=== PATIENT | male | born 1965 | race Caucasian/White ===

== ENCOUNTER 2018-09-09 10:37 | Outpatient (REF) | payer BC, SELFPAY ==
[2018-09-09 16:28] LABS: Cholesterol 197 mg/dL (50-200); HDL Cholesterol 82 mg/dL (40-60); LDL CHOLESTEROL 98 mg/dL (<100); Potassium 3.5 mmol/L (3.5-5.1); Triglyceride 102 mg/dL (30-150)
[2018-09-10 10:00] LABS: Hepatitis C Ab w Rflx HCV PCR Negative (NEGAT)
== END 2018-09-09 10:57 ==
LOC: NCHCN 10:37
PROVIDERS: PCP Internal Medicine; Visit Provider Internal Medicine
DX: I10 Essential (primary) hypertension (principal); Z11.59 Encounter for screening for other viral diseases; Z00.00 Encounter for general adult medical examination without abnormal findings
CPT/HCPCS: 80061; 83721; 86803; 84132

== ENCOUNTER 2018-12-28 13:12 | Emergency (ER) | payer BC, SELFPAY ==
[2018-12-28 13:18] VITALS: BP 127/85; PULSE 98; RESP 18; TEMP 36.7; O2SAT 97
--- NOTE | 2018-12-28 13:52 | ED.GENADUL_ITS ---
Discharge Plan Disposition Patient Disposition: [facility] Condition: Stable Discharge Details Chief Complaint: Nk/Back Pain Clinical Impression: AIDP (acute inflammatory demyelinating polyneuropathy), Proximal muscle weakness Primary Care Provider: Ignacio Lenz ED Provider: Radha Vee Home Meds and New Rx's Prescriptions: No Action potassium chloride 10 MEQ tablet extended release 1 tab PO DAILY RF: 0 losartan 25 MG tablet 25 mg PO DAILY RF: 0 lorazepam 0.5 MG tablet 0.5 mg PO BID PRN PRNQty: 10 RF: 0 diltiazem HCl 240 mg Capsule,Extended Release 24hr 240 mg PO DAILY RF: 0 hydrochlorothiazide 25 mg Tablet RF: 0 albuterol sulfate [Ventolin HFA] 90 mcg/actuation Hfa Aerosol Inhaler RF: 0 Symbicort 160-4.5 mcg/actuation Hfa Aerosol Inhaler RF: 0 omeprazole 20 mg Tablet,Delayed Release (Dr/Ec) RF: 0 Medical Decision Making 53yo M w/ a h/o asthma and HTN with chronic lower back pain over the past few weeks with progressive proximal muscle weakness in the upper and lower extremities. Sent by PCP for evaluation for possible MRI. PCP stated that patient dropped to his knees when attempting to stand and bending knees. Patient states he is unable to stand for me due to his leg weakness. He has obvious limitation with fully lifting his arms with abduction. He has obvious weakness with attempting to extend his knees. It appears that his weakness is proximal in the shoulders and proximal thighs. Reflexes hypoactive throughout. Distal pulses intact. Patient denies any fever or other cauda equina symptoms. Vitals within normal limits. Will obtain a cervical and lumbar spine MRI. Will also place an IV check screening labs, CK, ESR and CRP. 1810 --cervical MRI notes findings consistent with cervical spondylosis and disc disease with mild narrowing and C3-C4 and C4-C5 but no large protrusion, extrusion or intramedullary abnormality. Lumbar spine MRI notes mild disc degeneration at L5-S1 with mild posterior bulge with mild foraminal narrowing but no significant bulge, protrusion or stenosis. Labs reviewed and unremarkable. Normal CK, ESR and CRP. 1830 --discussed with [facility] neurology -appears consistent with a myopathy. Recommends LP to look for protein. If LP negative, likely can be discharged home if able to be ambulatory for follow-up with neurology for EMG/nerve conduction studies. Due to medical surge in ED, anesthesia called for LP. Patient was informed and is agreeable. 2044 --CSF reviewed and notes a protein of 236, glucose of 80, 1 WBC and 1 RBC. 2099 --CSF results reviewed with [facility] neurology and recommend transfer to there for concern for AIDP/Guillain Vansant. They are requesting IVIG if possible but this does not appear to be possible to be given here. They have accepted patient for transfer to [facility] ED. Accepting physician neurology Dr. Gilliland. No other acute interventions recommended to give here before transfer. Patient has been hemodynamically stable with no complaints of shortness of breath and no signs of any respiratory distress. Patient was given 2 doses of morphine and Toradol for pain with some relief. HPI General Mode of arrival: wheelchair . Date/Time Provider Initiated Documentation: 12/28/18 13:37 . Limitations to Documentation: no limitations . Information obtained by: patient . HPI Narrative: Patient is a 53-year-old male with history of hypertension and asthma who presents with back pain and leg weakness. States he has had multiple falls over the past few weeks. He states initially he was slipping on ice falling onto his back. He states lately he has had multiple falls due to leg weakness. He states he has been using his arms to lift himself due to his leg weakness and now he feels that over the past week or 2 he has had upper arm weakness. Patient mainly complains of weakness in his shoulders and upper thighs. Patient states he was seen yesterday at [facility] and had a lumbar spine x-ray which she states was negative and was sent home with ibuprofen and Flexeril. Patient was seen at the PCP office today by Dr. Lenz who sent patient to the ER for further evaluation of proximal muscle weakness for possible MRI. Patient denies fever, abdominal pain, nausea, vomiting, saddle anesthesia, bowel or bladder incontinence. Related Data Home Medications Medication Instructions Recorded Confirmed lorazepam 0.5 mg PO BID PRN PRN #10 tab 09/21/16 12/28/18 losartan 25 mg PO DAILY 09/21/16 12/28/18 potassium chloride 1 tab PO DAILY 09/21/16 12/28/18 albuterol sulfate [Ventolin HFA] 12/28/18 budesonide-formoterol [Symbicort] 12/28/18 diltiazem HCl 240 mg PO DAILY 12/28/18 12/28/18 hydrochlorothiazide 12/28/18 omeprazole 12/28/18 Previous Rx's Medication Instructions Recorded lorazepam 0.5 mg PO BID PRN PRN #10 tab 09/21/16 Allergies Allergy/AdvReac Type Severity Reaction Status Date / Time No Known Allergies Allergy Unverified 09/21/16 12:26 General Stated Complaint: Nk/Back Pain ADRIÁN: 3 Review of Systems Review of Systems All systems reviewed & are unremarkable except as noted in HPI and below Constitutional Reports as per HPI, Denies chills and Denies fever(s) Eyes Denies blurry vision ENT Denies dizziness, Denies sore throat and Denies throat swelling Cardiovascular Denies chest pain and Denies dyspnea Respiratory Denies cough and Denies dyspnea Gastrointestinal Denies abdominal pain, Denies diarrhea and Denies vomiting Genitourinary Denies hematuria and Denies dysuria Musculoskeletal Reports back pain and Reports numbness Integumentary/Breasts Denies lesions and Denies rash Neurologic Denies dizziness, Reports focal weakness and Reports numbness Allergic/Immunologic Denies throat swelling [facility] Medical History Asthma (Chronic) HTN (hypertension) (Chronic) Surgical History H/O shoulder surgery (Chronic) Social History Alcohol Intake: current Alcohol Intake frequency: 3 or more drinks per day Drug use: Never Substance use type: does not use Do you feel safe at home: Yes Do you feel safe in your relationship?: Yes Exam Const General: cooperative, healthy appearing and no acute distress HENMT Head: normal to inspection Face and sinus: normal facial exam Eyes General: appearance normal, both eyes and all related structures Pupils: PERRL EOM: EOM intact bilaterally Neck Neck: normal visual inspection and No submandibular swelling Lymphatic: no lymphadenopathy noted Chest Chest: normal inspection of the chest and no tenderness Resp Effort & Inspection: normal respiratory effort and able to speak in complete sentences Auscultation: clear to auscultation bilaterally Cardio Rate: regular rate Rhythm: regular rhythm GI Inspection: normal to inspection Palpation: soft, not firm, not rigid and nontender Auscultation: normal bowel sounds Back/Spine/Pelvis Thoracic/Lumbar Spine: thoracic and lumbar spine normal to inspection, No thoracic spinal tenderness and No lumbar spinal tenderness Pelvis: no pain with anterior-posterior compression Skin General skin exam: no rashes or lesions noted Neuro General: alert, awake and oriented x3 Cognition: normal cognition Speech: speech normal Sensory Exam: no sensory deficits noted Other: Limitation and difficulty with full abduction of arms and raising arms completely above her head. Limitation with knee extension bilaterally. Difficulty with standing due to proximal muscle weakness. Bilateral patella/Achilles reflexes hypoactive. Negative Babinski bilaterally. Bilateral DP/PT pulses intact. Normal radial/median/ulnar motor are nerve function of hands/wrists bilaterally. Normal plantar/dorsi flexion of foot bilaterally. Extrem General: normal to inspection, full ROM, normal capillary refill, no calf tenderness bilaterally and no edema Psych Appearance: grossly normal Mental Status: mental status grossly normal Speech and Movement: speech and movement normal Affect: normal affect Course Vital Signs Temperature 98.1 F 12/28/18 13:18 Pulse 98 H 12/28/18 13:18 Respiratory Rate 18 12/28/18 13:18 Blood Pressure 127/85 12/28/18 13:18 Pulse Oximetry 97 12/28/18 13:18 Temperature 98.1 F 12/28/18 13:18 Temperature Source Temporal Artery Scan 12/28/18 13:18 Pulse 98 H 12/28/18 13:18 Respiratory Rate 18 12/28/18 13:18 Respiratory Effort Non-Labored 12/28/18 13:21 Blood Pressure 127/85 12/28/18 13:18 Blood Pressure Position Sitting 12/28/18 13:18 Pulse Oximetry 97 12/28/18 13:18 Oxygen Delivery Method Room Air 12/28/18 13:18 Oxygen Flow Rate 0 12/28/18 13:18 Pain Level 3 12/28/18 13:18
--- NOTE | 2018-12-28 15:35 | DI.MRI_ITS ---
SYMPTOMS/DIAGNOSIS: PROXIMAL ARM WEAKNESS, HAND NUMBNESS, ? ACUTE CERVICAL INJURY, LOWER BACK PAIN, PROXIMAL MUSCLE WEAKNESS, ? LUMBAR SPINE/NERVE INJURY MRI OF THE CERVICAL SPINE: Comparison is made with plain films from 2012. T 1, T 2, FLAIR, STIR and T 2 3D sagittal and gradient echo axial sequences were performed. There is some straightening of the normal cervical lordosis at C 3 - 4. The intervertebral discs are well maintained in height. There is minimal posterior disc bulging at C 3 - 4 and C 4 - 5. There is no significant central canal stenosis. There is mild neural foraminal narrowing on the right at C 3 - 4 and C 4 - 5. No disc herniation is seen at any level. The cord signal and marrow signal appear normal. IMPRESSION: Mild degenerative changes. MRI OF THE LUMBAR SPINE: T 1, T 2 and STIR sagittal, T 1 coronal and T 1 and T 2 axial sequences were performed. The marrow signal is normal. The conus medullaris appears intact. The intervertebral discs are normal in height. There is partial disc desiccation at L 5 - S 1 and slight circumferential disc bulging. There are minimal facet joint degenerative changes. No paraspinal masses are seen. IMPRESSION: Mild degenerative disc changes at L 5 - S 1. No significant neural foraminal narrowing or central canal stenosis.
--- NOTE | 2018-12-28 16:01 | NUR.NOTE ---
patient to MRI Nursing Note:
[2018-12-28 16:06] LABS: Abs Immature Grans 0.02 k/cumm (0.0-0.09); Absolute Basophil Count 0.03 k/cumm (0.0-0.2); Absolute Eosinophil Count 0.56 k/cumm (0.0-0.7); Absolute Lymphocyte Count 1.52 k/cumm (1.2-3.4); Absolute Monocyte Count 0.89 k/cumm (0.11-0.7); Absolute Neutrophil Count 5.41 k/cumm (1.2-6.7); Basophils % 0.4; Eosinophils % 6.6; HCT 45.5 % (40.0-50.0); HGB 15.7 g/dL (13.5-17.5); Immature Grans % 0.2; Mean Corp. HGB Concentration 34.5 g/dL (32.0-36.0); Mean Corpuscular Hemoglobin 32.3 pg (27.0-33.0); Mean Corpuscular Volume 93.6 fL (80-95); Mean Platelet Volume 10.6 fL (8.0-11.0); Monocytes % 10.6; Neutrophils % 64.2; Platelet Count 225 x1000/uL (130-400); RBC 4.86 m/cumm (4.50-6.00); RBC Distribution Width 12.5 % (11.8-14.1); White Blood Cell Count 8.43 k/cumm (4.4-10.8)
[2018-12-28 16:14] LABS: Bilirubin Negative (Negative); Blood Negative (Negative); Clarity Clear; Glucose Negative (Negative); Ketones Negative (Negative); Leukocyte Esterase Negative (Negative); Nitrite Negative (Negative); Specific Gravity 1.015 (1.005-1.025)
[2018-12-28 16:34] LABS: ALT 77 U/L (12-78); AST 32 U/L (15-37); Albumin 3.9 g/dL (3.4-5.0); Alkaline Phosphatase 68 U/L (46-116); Anion Gap 11.1 mmol/L (3-11); BUN 17 mg/dL (7-18); Bilirubin, Total 0.5 mg/dL (0.2-1.0); C-Reactive Protein 0.54 mg/dL (0.0-0.3); CO2 27.9 mmol/L (21.0-32.0); CREATININE 0.88 mg/dL (0.70-1.30); Calcium 9.2 mg/dL (8.5-10.1); Chloride 98 mmol/L (98-107); Creatine Kinase 151 U/L (39-308); Glucose 117 mg/dL (70-100); Potassium 3.8 mmol/L (3.5-5.1); Sodium 137 mmol/L (136-145); Total Protein 7.3 g/dL (6.4-8.2)
[2018-12-28 17:21] LABS: ESR 5 MM/HR (1-20)
[2018-12-28 17:24] VITALS: BP 125/86; PULSE 89; RESP 16; TEMP 37.2; O2SAT 94
--- NOTE | 2018-12-28 17:24 | NUR.NOTE ---
returned from MRI, reports 3/10 lower back pain comes and goes and denies nausea Nursing Note:
--- NOTE | 2018-12-28 17:40 | DI.VRAD_ITS ---
EXAM: MR Lumbar Spine Without Contrast. EXAM DATE/TIME: 12/28/2018 5:09 PM CLINICAL HISTORY: 53 years old, male; Signs and symptoms; Weakness; Patient HX: Lower back pain, proximal muscle weakness. ; Additional info: R/O lumbar spine/nerve injury. TECHNIQUE: Imaging protocol: Multiplanar magnetic resonance images of the lumbar spine without intravenous contrast. COMPARISON: No relevant prior studies available. FINDINGS: Vertebrae: Exam mildly degraded by motion Alignment of the lumbar spine is within normal limits. Marrow: There is no significant marrow signal abnormality, focal vertebral body abnormality nor decrease of vertebral body height. There is no significant marrow edema to suggest recent or acute bony injury. There is decreased T2 signal of the intervertebral disc at L5-S1 consistent with disc desiccation and degeneration. There is a mild bulge or shallow posterior protrusion, mild spondylitic changes of the endplates and facet arthropathy at this level. The central canal does not appear significantly narrowed. There is mild foraminal narrowing slightly greater on the left than the right. The intervertebral discs within the visualized lower thoracic spine and at L1-2 through L4-5 are normal in height and signal intensity. There is no evidence of a large bulge, protrusion or extrusion, nor high grade spinal or foraminal stenosis. Spinal cord: The conus terminates normally at L1. Images are degraded by motion but no definite intramedullary abnormality is seen within the conus. Soft tissues: The exam was not tailored to evaluate the retroperitoneal or the paravertebral soft tissues. No significant abnormality is identified.. IMPRESSION: Mild disc desiccation degeneration at L5-S1. Mild posterior bulge or shallow protrusion. There is mild foraminal narrowing at this level slightly greater on the left than the right. There is no further evidence of a significant bulge, protrusion/extrusion, high-grade spinal or foraminal stenosis Dictated and Authenticated by: Bibi Francis MD. Ordering:JEANNE Garcia MD
--- NOTE | 2018-12-28 17:48 | DI.VRAD_ITS ---
EXAM: MR Cervical Spine Without Contrast EXAM DATE/TIME: 12/28/2018 4:43 PM CLINICAL HISTORY: 53 years old, male; Signs and symptoms; Weakness; Patient HX: Proximal arm weakness, hand numbness. ; Additional info: R/O acute cervical injury. TECHNIQUE: Imaging protocol: Multiplanar magnetic resonance images of the cervical spine without contrast. COMPARISON: CR CERVICAL SP. LIMITED (TRAUMA) 03/21/2012 9:18 PM FINDINGS: Vertebrae: Exam is mildly degraded by patient motion. There is straightening and mild reversal of the cervical lordosis which may be positional or due to spasm. There is minimal T1 and T2 bright signal involving the inferior endplate of C2 which may be related to mild fatty marrow/discogenic change. There is no other significant marrow signal abnormality, focal vertebral body abnormality nor decrease of vertebral body height. There is no definite marrow edema to suggest recent or acute bony injury. Craniocervical junction is unremarkable. There is slight decreased T2 signal of the intervertebral disc consistent with disc desiccation and degeneration. C2-C3: At C2-3 the spinal canal and the foramina appear patent. C3-C4: At C3-4 there is a disc osteophyte complex. There is narrowing of the ventral subarachnoid space, subtle flattening of the ventral aspect of the cervical cord and mild narrowing of the canal. There is mild right foraminal narrowing C4-C5: At C4-5 there is a minimal disc osteophyte complex narrowing the ventral subarachnoid space. There is minimal right foraminal narrowing C5-C6: At C5-6 the spinal canal and the foramina appear grossly patent. C6-C7: At C6-7 the spinal canal and foramina appear grossly patent C7-T1: At C7-T1 the spinal canal and the foramina appear patent. There is no large soft lesion or extrusion at any visualized level Spinal cord: Evaluation for intramedullary abnormality within the cervical cord is limited due to patient motion but none is definitely identified. Vasculature: Expected flow-voids are seen in the vertebral arteries. Soft tissues: The exam was not alert to evaluate the soft tissues of the neck. No significant abnormality is identified. IMPRESSION: 1. Exam degraded by motion 2. Findings consistent with mild cervical spondylosis, disc disease. There is mild narrowing of the canal at the level of the disc spaces most prominent at C3-4. There is mild foraminal narrowing most prominent on the right at C3-4 minimally at C4-5. No large soft protrusion or extrusion is identified. No definite intramedullary abnormality is seen within the cervical cord. Dictated and Authenticated by: Bibi Francis MD. Ordering:JEANNE Garcia MD
[2018-12-28 20:11] LABS: Clarity Clear; Tube # 4
[2018-12-28 20:12] LABS: RBC 1 /mm3 (0-5); WBC 1 /mm3 (0-5); Xanthochromia Absent
[2018-12-28 20:21] LABS: Glucose (CSF) 80 mg/dL (40-70); Total Protein (CSF) 236 mg/dL (15-45)
[2018-12-28 20:24] VITALS: BP 128/82; PULSE 84; RESP 18; TEMP 37.2; O2SAT 95
[2018-12-28] MEDS: MORPHine 10 MG/ML VIAL 4 MG IVP (22:03)
--- NOTE | 2018-12-28 22:16 | NUR.NOTE ---
patient aware of pending transfer. patient denies SOB Nursing Note:
--- NOTE | 2019-01-03 16:28 | NUR.NOTE ---
Nursing Note: Faxed to [facility] fluid culture results, gram stain. . Ashley Velasco.
== END 2018-12-28 23:04 | disposition short-term general hospital (02) ==
PROVIDERS: Emergency Provider Physician Assistant; PCP Internal Medicine
DX: G61.89 Other inflammatory polyneuropathies (principal); M62.81 Muscle weakness (generalized); I10 Essential (primary) hypertension
CPT/HCPCS: 36415; 80053; 82550; 82945; 85652; 89050; 89051; 96374; 96375; 96376; 99284; 72141; 72148; 81003; 84157; 85025; 86140; 87070; 87205; J1885; J2270

== ENCOUNTER 2019-09-12 22:35 | Outpatient (REF) | payer BC, SELFPAY ==
[2019-09-12 22:19] LABS: Anion Gap 11.6 mmol/L (3-11); BUN 13 mg/dL (7-18); CO2 30.4 mmol/L (21.0-32.0); CREATININE 0.95 mg/dL (0.70-1.30); Calcium 9.4 mg/dL (8.5-10.1); Chloride 97 mmol/L (98-107); Glucose 119 mg/dL (74-106); Potassium 3.5 mmol/L (3.5-5.1); Sodium 139 mmol/L (136-145)
== END 2019-09-12 22:55 ==
LOC: NCHCN 22:35
PROVIDERS: PCP Internal Medicine; Visit Provider Internal Medicine
DX: I10 Essential (primary) hypertension (principal)
CPT/HCPCS: 80048

== ENCOUNTER 2020-11-13 19:46 | Outpatient (REF) | payer OTHER, SELFPAY ==
[2020-11-13 21:31] LABS: Anion Gap 10.8 mmol/L (3-11); BUN 15 mg/dL (7-18); CO2 28.2 mmol/L (21.0-32.0); CREATININE 0.9 mg/dL (0.70-1.30); Calcium 8.8 mg/dL (8.5-10.1); Chloride 98 mmol/L (98-107); Glucose 129 mg/dL (74-106); Magnesium 1.8 mg/dL (1.8-2.4); Potassium 3.1 mmol/L (3.5-5.1); Sodium 137 mmol/L (136-145)
== END 2020-11-13 19:47 | disposition home or self-care (01) ==
LOC: NCHCN 19:46
PROVIDERS: PCP Internal Medicine; Visit Provider Internal Medicine
DX: I10 Essential (primary) hypertension (principal); R25.2 Cramp and spasm
CPT/HCPCS: 80048; 83735

== ENCOUNTER 2020-12-12 18:48 | Outpatient (REF) | payer OTHER, SELFPAY ==
[2020-12-12 22:19] LABS: Potassium 3.3 mmol/L (3.5-5.1)
== END 2020-12-12 18:49 | disposition home or self-care (01) ==
LOC: NCHCN 18:48
PROVIDERS: PCP Internal Medicine; Visit Provider Internal Medicine
DX: E87.6 Hypokalemia (principal)
CPT/HCPCS: 84132

== ENCOUNTER 2021-01-02 16:20 | Outpatient (REF) | payer OTHER, SELFPAY ==
[2021-01-02 22:13] LABS: Potassium 3.4 mmol/L (3.5-5.1)
== END 2021-01-02 16:21 | disposition home or self-care (01) ==
LOC: NCHCN 16:20
PROVIDERS: PCP Internal Medicine; Visit Provider Internal Medicine
DX: E87.6 Hypokalemia (principal)
CPT/HCPCS: 84132

== ENCOUNTER 2021-10-10 19:45 | Outpatient (REF) | payer OTHER, SELFPAY ==
[2021-10-10 21:14] LABS: Anion Gap 10.7 mmol/L (3-11); BUN 10 mg/dL (7-18); CO2 27.3 mmol/L (21.0-32.0); CREATININE 0.8 mg/dL (0.70-1.30); Calcium 8.9 mg/dL (8.5-10.1); Chloride 98 mmol/L (98-107); Glucose 120 mg/dL (74-106); Sodium 136 mmol/L (136-145)
== END 2021-10-10 19:46 | disposition home or self-care (01) ==
LOC: NCHCN 19:45
PROVIDERS: PCP Internal Medicine; Visit Provider Internal Medicine
DX: E87.6 Hypokalemia (principal)
CPT/HCPCS: 80048

== ENCOUNTER 2023-04-02 11:38 | Outpatient (REF) | payer OTHER, SELFPAY ==
[2023-04-02 14:27] LABS: Anion Gap 12.4 mmol/L (3-11); BUN 11 mg/dL (7-18); CO2 24.6 mmol/L (21.0-32.0); CREATININE 0.8 mg/dL (0.70-1.30); Calcium 9.4 mg/dL (8.5-10.1); Calculated LDL 86 mg/dL (<100); Chloride 99 mmol/L (98-107); Cholesterol 225 mg/dL (<200); Estimated GFR 103.87 (mL/min/1.73m2); Glucose 119 mg/dL (74-106); HDL Cholesterol 129 mg/dL (40-60); Potassium 3.9 mmol/L (3.5-5.1); Sodium 136 mmol/L (136-145); Triglyceride 54 mg/dL (<150)
== END 2023-04-02 11:39 | disposition home or self-care (01) ==
LOC: NCHCN 11:38
PROVIDERS: PCP Internal Medicine; Visit Provider Internal Medicine
DX: F10.14 Alcohol abuse with alcohol-induced mood disorder (principal); F32.9 Major depressive disorder, single episode, unspecified; I10 Essential (primary) hypertension; J45.30 Mild persistent asthma, uncomplicated
CPT/HCPCS: 80048; 80061

== ENCOUNTER 2024-05-19 08:56 | Outpatient (REF) | payer BC, SELFPAY ==
[2024-05-19 14:30] LABS: Abs Immature Grans 0.01 10^3/uL (0.0-0.06); Absolute Basophil Count 0.07 10^3/uL (0.0-0.2); Absolute Eosinophil Count 0.42 10^3/uL (0.0-0.7); Absolute Lymphocyte Count 1.33 10^3/uL (1.2-3.4); Absolute Monocyte Count 0.55 10^3/uL (0.1-0.8); Absolute Neutrophil Count 3.68 10^3/uL (1.2-6.7); Basophils % 1.2 %; Eosinophils % 6.9 %; HCT 45.2 % (40.0-50.0); HGB 15.5 g/dL (13.5-17.5); Immature Grans % 0.2 %; Lymphocytes % 21.9 %; MCH 33.9 pg (27.0-33.0); MCHC 34.3 % (32.0-36.0); MCV 99 fL (80-95); MPV 10.7 fL (8.0-11.0); Monocytes % 9.1 %; Neutrophils % 60.7 %; Platelet Count 157 10^3/uL (130-400); RBC 4.57 10^6/uL (4.36-5.78); WBC 6.06 10^3/uL (4.4-10.8)
[2024-05-19 15:29] LABS: ALT 81 U/L (16-63); AST 70 U/L (15-37); Alkaline Phosphatase 116 U/L (46-116); Anion Gap 16.2 mmol/L (3-11); BUN 5 mg/dL (7-18); Bilirubin, Total 1.01 mg/dL (0.2-1.0); CO2 22.8 mmol/L (21.0-32.0); CREATININE 0.7 mg/dL (0.70-1.30); Calcium 9.1 mg/dL (8.5-10.1); Chloride 101 mmol/L (98-107); Estimated GFR 107.47 (mL/min/1.73m2); Glucose 111 mg/dL (74-106); Potassium 4.1 mmol/L (3.5-5.1); Sodium 140 mmol/L (136-145); Total Protein 7.4 g/dL (6.4-8.2)
== END 2024-05-19 08:57 | disposition home or self-care (01) ==
LOC: NCHCN 08:56
PROVIDERS: PCP Family Medicine; Visit Provider Family Medicine
DX: F10.10 Alcohol abuse, uncomplicated (principal)
CPT/HCPCS: 80053; 85025

== ENCOUNTER 2024-11-11 17:10 | Emergency (ER) | payer MEDICAID, SELFPAY ==
[2024-11-11] VITALS (89 sets, daily range): BP systolic 62–112; BP diastolic 32–89; PULSE 80–135; RESP 16–27; O2SAT 76–99
--- NOTE | 2024-11-11 17:15 | RT.EKG_ITS ---
APPROVED REPORT Exam: Resting ECG Reason for Exam: hypotension Patient Location: E HR:85 bpm ECG Measurements Heart Rate 85 AXIS OK 182 P 29 QRSd 84 QRS 9 QT 429 T 32 QTc 513 Conclusion Sinus rhythm...normal P axis, V-rate 60- 99 Prolonged QT interval...QTc >500mS No STEMI
--- NOTE | 2024-11-11 17:45 | ED.GENADUL_ITS ---
Discharge Plan Disposition Patient Disposition: Transfer-Acute Inpatient Care Specific Acute Inpt Facility: [facility] Condition: Serious Discharge Details Clinical Impression: Acute hepatic failure, JACKY (acute kidney injury), Hyponatremia, Septic shock Primary Care Provider: Noman Guerin ED Provider: Miya Mccoy Home Meds and New Rx's Prescriptions: No Action potassium chloride 10 MEQ tablet extended release 1 tab PO DAILY Patient Comments: not sure of dose diltiazem HCl 240 mg Capsule,Extended Release 24hr 240 mg PO DAILY albuterol sulfate [Ventolin HFA] 90 mcg/actuation Hfa Aerosol Inhaler 1 puff inhalation Q6H PRN budesonide-formoterol [Symbicort] 160-4.5 mcg/actuation Hfa Aerosol Inhaler 1 inh inhalation DAILY omeprazole 20 mg Tablet,Delayed Release (Dr/Ec) 20 mg PO DAILY HPI General Date/Time Provider Initiated Documentation: 11/11/24 17:30 . HPI Narrative: Anthony is a 59 year old male who presents to the emergency department today for evaluation of weakness and dizziness with standing,, jaundice, and lower abdominal discomfort. He reports he has had generalized weakness since July when he was sick with a viral illness. He is not sure when he developed the jaundice, his friend said that this was not present at [place] when he last saw him. He reports that he slipped down the stairs a couple days ago, but on his back down approximately [address]. Denies head injury. He is concerned because he has had lower abdominal discomfort since then, was concerned he might have a hernia from falling down the stairs. Denies associated fever/chills, headaches, sore throat, congestion, nausea/vomiting, chest pain, shortness of breath, cough, change in bladder function, saddle anesthesia, leg weakness. He has had constipation for the last 3 days, normal stools before that. Past medical history is significant for EtOH abuse, last d rink on . Physical exam remarkable for jaundiced patient with distended abdomen. Slightly tacky mucous membranes. Easy work of breathing, lung sounds clear bilaterally. Normal heart sounds no T-spine or L-spine tenderness/step-off/deformity or ecchymosis noted. D/dx includes but is not limited to: Septic shock, ascending cholangitis, liver failure, spontaneous bacterial peritonitis, dehydration, electrolyte imbalance, severe anemia, pneumonia I independently interpreted the following tests: CBC notable for leukocytosis, white cell count 31.72. CMP notable for elevated LFTs, including Biliruben elevated at 27.69. Hypoalbuminemia noted, 1.4. Hyponatremia, sodium 126. Elevated creatinine and BUN consistent with JACKY. Lactate elevated at 2.8, improved to 2.0 after fluid resuscitation. PT/INR and APTT elevated. While in the emergency department, septic shock was identified and patient was initiated on 30 cc/kg fluid bolus, blood cultures, antibiotic coverage with cefepime and vancomycin. Pressors were initiated when blood pressure continues to remain low, norepinephrine titrated per protocol. CT abdomen/pelvis performed, mild thickening throughout the GI tract noted, likely portal related disease. Cirrhosis and portal hypertension, moderate abdominal pelvic ascites, splenomegaly also noted. T-spine and L-spine CT also obtained, no bony pathology noted. Mild dependent atelectasis noted on CXR, no infiltrates noted. Discussed case with gastroenterology/ICU team at [facility]. Likely alcoholic hepatitis. It was recommended that patient be presented to transplant centers for definitive management, but they would be willing to take him if transplant centers do not have available beds. Multiple transplant centers in [place] area called, including [facility], [facility], [facility], and [facility]. No beds available. Patient accepted to ICU at [facility], transportation pending. Handoff report given to Dr. Agrawal, overnight attending. Related Data Home Medications ?Medication ?Instructions ?Recorded ?Confirmed potassium chloride 10 mEq 1 tab PO DAILY 09/21/16 11/11/24 tablet,extended release albuterol sulfate 90 mcg/actuation 1 puff inhalation Q6H PRN 12/28/18 11/11/24 aerosol inhaler (Ventolin HFA) budesonide-formoterol HFA 160 1 inh inhalation DAILY 12/28/18 11/11/24 mcg-4.5 mcg/actuation aerosol inhaler (Symbicort) diltiazem HCl 240 mg 240 mg PO DAILY 12/28/18 11/11/24 capsule,extended release 24 hr omeprazole 20 mg tablet,delayed 20 mg PO DAILY 12/28/18 11/11/24 release Allergies Allergy/AdvReac Type Severity Reaction Status Date / Time No Known Allergies Allergy Unverified 11/11/24 17:20 General Stated Complaint: Abd Prob ADRIÁN: 2 Review of Systems Narrative: see HPI Exam Const General: cooperative, disheveled, ill appearing and other (jaundiced) Nutritional Appearance: average body habitus Orientation: alert and oriented x3 HENMT Head: normal to inspection Ears: hearing grossly normal bilaterally General nose exam: external nose normal Face and sinus: dry mucous membranes (tacky) Resp Effort & Inspection: normal respiratory effort and able to speak in complete sentences Auscultation: clear to auscultation bilaterally Cardio Rate: tachycardic Rhythm: regular rhythm GI Inspection: distended Palpation: soft, no guarding and tender Auscultation: normal bowel sounds Back/Spine/Pelvis Cervical Spine: normal cervical lordosis and cervical ROM normal Thoracic/Lumbar Spine: thoracic and lumbar spine normal to inspection and No paraspinal tenderness Skin General skin exam: jaundice Extrem General: no pedal edema Course Vital Signs Vital signs: Vital Signs Pulse 93 H 11/11/24 17:13 Blood Pressure 79/42 L 11/11/24 17:13 Pulse Oximetry 93 11/11/24 17:13 Pulse 93 H 11/11/24 17:13 Blood Pressure 79/42 L 11/11/24 17:13 Pulse Oximetry 93 11/11/24 17:13 Oxygen Delivery Method Room Air 11/11/24 17:13 Oxygen Flow Rate 0 11/11/24 17:13 Pain Level 8 11/11/24 17:13 Medical Decision Making Imaging Data Radiologic Study: Radiologist's impression: PROCEDURE INFORMATION: Exam: CT Abdomen And Pelvis Without Contrast Exam date and time: 11/11/2024 7:16 PM Age: 59 years old Clinical indication: Other: Abdominal pain, ascites, elevated bili TECHNIQUE: Imaging protocol: Computed tomography of the abdomen and pelvis without contrast. COMPARISON: CT LUMBAR SPINE RECONS 11/11/2024 7:16 PM FINDINGS: Lungs: Mild dependent subsegmental atelectasis. Liver: Liver contour is nodular. Gallbladder and biliary ducts: Faint material gallbladder lumen could be sludge or noncalcified stones. No gross biliary ductal dilation on these noncontrast images. Pancreas: No ductal dilation. No mass on noncontrast imaging. Spleen: Moderate splenomegaly without focal lesions on noncontrast imaging. Adrenal glands: No suspicious mass on noncontrast imaging. Kidneys and ureters: Nonobstructive subcentimeter left nephrolithiasis. No right nephrolithiasis. No right hydronephrosis. Stomach and bowel: Mild wall thickening throughout majority of GI tract including probably distal esophagus, definitely stomach, duodenum, small bowel and majority of colon and potentially even portions of the rectum. Scattered colonic diverticula without inflammation. On these noncontrast images there is no convincing obstructive process in GI tract. Wall thickening could be moderate and more pronounced in the cecum. Appendix: No evidence of appendicitis. Intraperitoneal space: Moderate abdominal and pelvic ascites. Vasculature: No abdominal aortic aneurysm. Lymph nodes: Enlarged portacaval and gastrohepatic lymph nodes could relate to cirrhosis. Urinary bladder: The bladder is decompressed and the wall is not well assessed. Reproductive: Unremarkable as visualized. Bones/joints: Lumbar spine is dictated separately. The bony pelvis is intact. Soft tissues: Small fat-containing umbilical hernia. Small amount of ascites herniates into the umbilical hernia. IMPRESSION: 1. Cirrhosis. 2. Portal hypertension. Moderate abdominal and pelvic ascites. Splenomegaly. 3. [id number] most likely portal related disease, esophagus through rectum as above. 4. Incidental findings as described. Radiologic Study #2: Radiologist's impression: PROCEDURE INFORMATION: Exam: CT Thoracic Spine Without Contrast Exam date and time: 11/11/2024 7:20 PM Age: 59 years old Clinical indication: Pain; Other: Fell down stairs TECHNIQUE: Imaging protocol: Computed tomography of the thoracic spine without contrast. COMPARISON: CT ABDOMEN PELVIS WO 11/11/2024 7:16 PM FINDINGS: Bones/joints: No acute fracture or subluxation. Disc spaces are normal for age on CT. No significant central canal stenosis on CT. Soft tissues: Mild dependent subcutaneous edema. Lungs: Mild dependent subsegmental atelectasis. IMPRESSION: No acute bony pathology. Quality:SDOH Health Related Social Needs: No Data to Display PFSH All Active Problems (Updated 11/12/24 @ 01:22 by Miya Epstein) Septic shock (Acute) Hyponatremia (Acute) JACKY (acute kidney injury) (Acute) Acute hepatic failure (Acute) Medical History (Updated 11/12/24 @ 01:22 by Miya Epstein) HTN (hypertension) Asthma Surgical History H/O shoulder surgery Social History Smoking risk assessment performed?: No Alcohol Intake: current Alcohol Intake frequency: 3 or more drinks per day Drug use: Never Substance use type: does not use Do you feel safe at home: Yes Do you feel safe in your relationship?: Yes
[2024-11-11] MEDS: Lactated Ringers 1,000 ML 1000 ML IV (17:50)
[2024-11-11 17:52] LABS: Abs Immature Grans 0.36 10^3/uL (0.0-0.06); Absolute Eosinophil Count 0.03 10^3/uL (0.0-0.7); Absolute Lymphocyte Count 1.33 10^3/uL (1.2-3.4); Absolute Monocyte Count 1.43 10^3/uL (0.1-0.8); Basophils % 0.3 %; Eosinophils % 0.1 %; HCT 32.5 % (40.0-50.0); HGB 12.1 g/dL (13.5-17.5); Immature Grans % 1.1 %; Lymphocytes % 4.2 %; MCH 36.1 pg (27.0-33.0); MCHC 37.2 % (32.0-36.0); MCV 97 fL (80-95); MPV 11.2 fL (8.0-11.0); Monocytes % 4.5 %; Neutrophils % 89.8 %; Platelet Count 165 10^3/uL (130-400); RBC 3.35 10^6/uL (4.36-5.78); RDW 14.5 % (11.8-14.1); RDW-SD 51.5 fL
[2024-11-11 18:00] LABS: Absolute Neutrophil Count 28.48 10^3/uL (1.2-6.7)
[2024-11-11 18:01] LABS: Diff Comment Agrees w/ Instrument; RBC Morphology Normal; WBC 31.72 10^3/uL (4.4-10.8)
[2024-11-11 18:02] LABS: INR 2.4 (0.9-1.1); PTT Activated 36.4 sec (20.6-30.2); Prothrombin Time 22.8 sec (9.1-11.1)
[2024-11-11] MEDS: CEFEPIME 2 GM in Normal Saline 100 ML IVPB (18:22)
[2024-11-11 18:27] LABS: ALT 80 U/L (16-63); AST 151 U/L (15-37); Albumin 1.4 g/dL (3.4-5.0); Alkaline Phosphatase 207 U/L (46-116); Anion Gap 13.1 mmol/L (3-11); BUN 39 mg/dL (7-18); CO2 19.9 mmol/L (21.0-32.0); CREATININE 3.5 mg/dL (0.70-1.30); Calcium 8.1 mg/dL (8.5-10.1); Chloride 93 mmol/L (98-107); Glucose 93 mg/dL (74-106); Potassium 3.6 mmol/L (3.5-5.1); Sodium 126 mmol/L (136-145)
[2024-11-11] MEDS: Norepinephrine in D5W 8 MG/250 ML BAG 9.375 MG IV (18:29)
[2024-11-11 18:30] LABS: Bilirubin, Total 27.69 mg/dL (0.2-1.0)
[2024-11-11] MEDS: Lactated Ringers 1,000 ML 1700 ML IV (18:34)
[2024-11-11 18:37] LABS: Total Protein 5.2 g/dL (6.4-8.2)
--- NOTE | 2024-11-11 18:44 | DI.CT_ITS ---
Exam(s) CT THORACIC SPINE WO EXAM: CT THORACIC SPINE WO CLINICAL HISTORY: fell down stairs. TECHNIQUE: Imaging Protocol: Axial computed tomography images with coronal and sagittal reformatted images were created and reviewed. CONTRAST MATERIAL: Noncontrast COMPARISON: CR,XR XR CHEST 2V PA LATERAL from 11/11/2024 FINDINGS: Bones: No fractures or dislocations are seen. The alignment of the spine is normal including the cerv icothoracic junction. Soft tissues: The soft tissues of the chest are unremarkable. No large disk herniations are identifie d. Ascites is noted around the liver and spleen. Dependent changes are noted at the lung bases. N o pleural effusions or definite infiltrates. IMPRESSION: No acute bony abnormality. Ascites is noted in the upper abdomen. RADIATION DOSE DELIVERED: Total DLP DATA REPOSITORY: All CT scans at this facility are submitted to the National Radiology Data Registry (NRDR) Dose Index Registry (DIR) with the [employer] (ACR). RADIATION OPTIMIZATION: All CT scans at this facility use at least one of these dose optimization te chniques: automated exposure control; mA and/or kV adjustment per patient size (includes targeted exa ms where dose is matched to clinical indication); or iterative reconstruction.
[2024-11-11 18:45] LABS: Lactate 2.8 mmol/L (<or=2.0)
--- NOTE | 2024-11-11 18:45 | DI.CT_ITS ---
Exam(s) CT LUMBAR SPINE RECONS CT ABDOMEN PELVIS WO EXAM: CT ABDOMEN PELVIS WO CLINICAL HISTORY: abdominal pain, ascites, elevated bili. TECHNIQUE: Imaging Protocol: Axial computed tomography images with coronal and sagittal reformatted images were created and reviewed. Oral: yes / no COMPARISON: CT CT LUMBAR SPINE RECONS from 11/11/[address] THORACIC SPINE WO from 11/11/2024 FINDINGS: Lung Bases: No acute findings. Atelectasis noted at the right lung base. The right diaphragm is alcon vated. Liver: Enlarged to 22 cm in length. No suspicious mass. Gallbladder and biliary tract: High-density material noted in the gallbladder, study and/or small s tones. No biliary dilation. Pancreas: Normal density. No abnormal calcifications or inflammatory process. Spleen: Spleen is enlarged at 16 cm in length. Kidneys: Normal size, contour and axis. Nonobstructing stone lower pole left kidney.. No obstructive uropathy. No suspicious masses seen. Adrenal glands: No masses seen. Lymph nodes: Mildly low enlarged lymph nodes in the region of the linda hepatis. Vasculature: Abdominal aorta non-dilated. Soft tissues: Small fat containing umbilical hernia. Posterior dependent subcutaneous edema. Bladder: No wall thickening. No mass or calculi. Bowel: Not well evaluated due to lack of IV contrast and large amount of the cyst surrounding ascites . No obstruction. Diverticulosis, mild of the lower descending and proximal sigmoid. The appendix is normal. Normal quantity of stool. Peritoneal cavity: Large quantity of ascites noted around the liver and spleen and extending along th e paracolic goal as into the pelvis. No focal collection. No mesenteric inflammatory response. Reproductive organs: Unremarkable. Bones: Unremarkable for age. No evidence of pelvic or spine fracture. No visible rib fractures. IMPRESSION: Large quantity of ascites. Hepatosplenomegaly. Findings consistent with cirrhosis. Bowel mainly obscured by surrounding ascites. No evidence of obstruction. No acute bony abnormality. RADIATION DOSE DELIVERED: Total DLP DATA REPOSITORY: All CT scans at this facility are submitted to the National Radiology Data Registry (NRDR) Dose Index Registry (DIR) with the [employer] (ACR). RADIATION OPTIMIZATION: All CT scans at this facility use at least one of these dose optimization te chniques: automated exposure control; mA and/or kV adjustment per patient size (includes targeted exa ms where dose is matched to clinical indication); or iterative reconstruction.
--- NOTE | 2024-11-11 19:55 | DI.VRAD_ITS ---
PROCEDURE INFORMATION: Exam: CT Abdomen And Pelvis Without Contrast Exam date and time: 11/11/2024 7:16 PM Age: 59 years old Clinical indication: Other: Abdominal pain, ascites, elevated bili TECHNIQUE: Imaging protocol: Computed tomography of the abdomen and pelvis without contrast. COMPARISON: CT LUMBAR SPINE RECONS 11/11/2024 7:16 PM FINDINGS: Lungs: Mild dependent subsegmental atelectasis. Liver: Liver contour is nodular. Gallbladder and biliary ducts: Faint material gallbladder lumen could be sludge or noncalcified stones. No gross biliary ductal dilation on these noncontrast images. Pancreas: No ductal dilation. No mass on noncontrast imaging. Spleen: Moderate splenomegaly without focal lesions on noncontrast imaging. Adrenal glands: No suspicious mass on noncontrast imaging. Kidneys and ureters: Nonobstructive subcentimeter left nephrolithiasis. No right nephrolithiasis. No right hydronephrosis. Stomach and bowel: Mild wall thickening throughout majority of GI tract including probably distal esophagus, definitely stomach, duodenum, small bowel and majority of colon and potentially even portions of the rectum. Scattered colonic diverticula without inflammation. On these noncontrast images there is no convincing obstructive process in GI tract. Wall thickening could be moderate and more pronounced in the cecum. Appendix: No evidence of appendicitis. Intraperitoneal space: Moderate abdominal and pelvic ascites. Vasculature: No abdominal aortic aneurysm. Lymph nodes: Enlarged portacaval and gastrohepatic lymph nodes could relate to cirrhosis. Urinary bladder: The bladder is decompressed and the wall is not well assessed. Reproductive: Unremarkable as visualized. Bones/joints: Lumbar spine is dictated separately. The bony pelvis is intact. Soft tissues: Small fat-containing umbilical hernia. Small amount of ascites herniates into the umbilical hernia. IMPRESSION: 1. Cirrhosis. 2. Portal hypertension. Moderate abdominal and pelvic ascites. Splenomegaly. 3. [id number] most likely portal related disease, esophagus through rectum as above. 4. Incidental findings as described. Dictated and Authenticated by: Meg Huang MD. Orderin Jay Holliday MD
--- NOTE | 2024-11-11 19:56 | DI.VRAD_ITS ---
PROCEDURE INFORMATION: Exam: CT Thoracic Spine Without Contrast Exam date and time: 11/11/2024 7:20 PM Age: 59 years old Clinical indication: Pain; Other: Fell down stairs TECHNIQUE: Imaging protocol: Computed tomography of the thoracic spine without contrast. COMPARISON: CT ABDOMEN PELVIS WO 11/11/2024 7:16 PM FINDINGS: Bones/joints: No acute fracture or subluxation. Disc spaces are normal for age on CT. No significant central canal stenosis on CT. Soft tissues: Mild dependent subcutaneous edema. Lungs: Mild dependent subsegmental atelectasis. IMPRESSION: No acute bony pathology. Dictated and Authenticated by: Meg Huang MD. Orderin Jay Holliday MD
--- NOTE | 2024-11-11 19:56 | DI.VRAD_ITS ---
PROCEDURE INFORMATION: Exam: CT Lumbar Spine Without Contrast Exam date and time: 11/11/2024 7:16 PM Age: 59 years old Clinical indication: Pain; Other: Fell down stairs TECHNIQUE: Imaging protocol: Computed tomography of the lumbar spine without contrast. COMPARISON: MR lumbar spine wo 12/28/2018 4:43 PM FINDINGS: Bones/joints: No acute fracture or subluxation. Disc spaces are well preserved on CT. No central canal stenosis. Soft tissues: Dependent subcutaneous edema. Additional findings please see CT abdomen pelvis same date. IMPRESSION: No acute bony pathology. Dictated and Authenticated by: Meg Huang MD. Orderin Jay Holliday MD
--- NOTE | 2024-11-11 23:06 | DI.RAD_ITS ---
Exam(s) XR CHEST 2V PA LATERAL EXAM: XR CHEST 2V PA LATERAL CLINICAL HISTORY: r/o PNA TECHNIQUE: 2D digital imaging was performed. Two views. COMPARISON: No exams were available for comparison FINDINGS: Exam is extremely limited by expiratory changes as well as under penetration.. HEART: Normal size. Aorta: Not dilated. PULMONARY VASCULATURE: Normal. MEDIASTINUM: Unremarkable. LUNGS: Bibasilar atelectasis. No gross evidence of infiltrate or pulmonary edema. PLEURAL SPACE: No pleural effusion or pneumothorax. BONE:Severe degenerative changes in the left shoulder. SOFT TISSUES: Unremarkable. IMPRESSION: Exam limited due to expiratory changes. Bibasilar atelectasis. DATA REPOSITORY: RADIATION DOSE DELIVERED:
--- NOTE | 2024-11-11 23:15 | DI.VRAD_ITS ---
PROCEDURE INFORMATION: Exam: XR Chest Exam date and time: 11/11/2024 11:03 PM Age: 59 years old Clinical indication: Other: Jaundice; R/O pna TECHNIQUE: Imaging protocol: Radiologic exam of the chest. Views: 2 views. COMPARISON: CT THORACIC SPINE WO 11/11/2024 7:20 PM FINDINGS: Lungs: Very low lung volumes; mild bibasilar opacities. Interstitial and vascular crowding appearing technique related. Pleural spaces: No pleural effusion. No pneumothorax. Heart/Mediastinum: No cardiomegaly. Bones/joints: Chronic bony changes with no acute fracture. IMPRESSION: Very low lung volumes; mild bibasilar opacities favoring compressive atelectasis over pneumonia. Dictated and Authenticated by: Meg Huang MD. Orderin Jay Holliday MD
[2024-11-12] VITALS (87 sets, daily range): BP systolic 80–115; BP diastolic 37–69; PULSE 85–127; RESP 14–32; O2SAT 89–98
[2024-11-12] MEDS: DOXYCYCLINE 100 MG in Normal Saline 100 ML IVPB (01:29)
[2024-11-12 01:32] LABS: Bilirubin Color Interference (Negative); Blood Color Interference (Negative); Clarity Sl Cloudy (Clear); Glucose Color Interference mg/dL (Negative); Ketones Color Interference mg/dL (Negative); Leukocyte Esterase Color Interference (Negative); Nitrite Color Interference (Negative); Urobilinogen Color Interference mg/dL (Up to 0.2)
[2024-11-12 01:36] LABS: Bacteria Rare HPF (Negative); C & S Indicated? No; Casts Negative LPF (Negative); Crystals Negative HPF (Negative); Epithelial Cells Rare HPF (Negative); Mucus Negative (Negative); RBC 0-2 HPF (0-2)
[2024-11-12] MEDS: Calcium Carbonate *TUMS* 500 MG CHEW PO (03:04)
[2024-11-12] MEDS: Norepinephrine in D5W 8 MG/250 ML BAG 28.125 MG IV (04:39)
--- NOTE | 2024-11-12 07:05 | ED.PROG_ITS ---
Date of service: 11/12/24 Time of Service: 07:05 Medical Decision Making At time of signout patient had been accepted for transfer to [facility]. We are still pending available transfer vehicle. Patient remained on Levophed throughout the stay, blood pressure/MAP remained greater than 65. Heart rate stable. Patient stable for transfer. Quality:[facility] Health Related Social Needs: No Data to Display Critical Care Time Critical Care Time Critical Care Time: Yes Total Critical Care Time: 90 Attestation: Upon my evaluation, this patient had a high probability of imminent or life- threatening deterioration, which required my direct attention, intervention, and personal management. I have personally provided 90 minutes of critical care time exclusive of time spent on separately billable procedures. Time includes review of laboratory data, radiology results, discussion with consultants, and monitoring for potential decompensation. Interventions were performed as documented. Discharge Plan Disposition Patient Disposition: Transfer-Acute Inpatient Care Specific Acute Inpt Facility: [facility] Condition: Serious Discharge Details Clinical Impression: Acute hepatic failure, JACKY (acute kidney injury), Hyponatremia, Septic shock Primary Care Provider: Noman Guerin ED Provider: Kavon Agrawal Home Meds and New Rx's Prescriptions: No Action potassium chloride 10 MEQ tablet extended release 1 tab PO DAILY Patient Comments: not sure of dose diltiazem HCl 240 mg Capsule,Extended Release 24hr 240 mg PO DAILY albuterol sulfate [Ventolin HFA] 90 mcg/actuation Hfa Aerosol Inhaler 1 puff inhalation Q6H PRN budesonide-formoterol [Symbicort] 160-4.5 mcg/actuation Hfa Aerosol Inhaler 1 inh inhalation DAILY omeprazole 20 mg Tablet,Delayed Release (Dr/Ec) 20 mg PO DAILY
[2024-11-12] MEDS: Ondansetron 4 MG/2 ML VIAL IVP (07:34)
== END 2024-11-12 07:47 | disposition short-term general hospital (02) ==
PROVIDERS: Nurse Practitioner Family; Emergency Provider Student in an Organized Health Care Education/Training Program; PCP Family Medicine
DX: K72.90 Hepatic failure, unspecified without coma (principal); N17.9 Acute kidney failure, unspecified; E87.1 Hypo-osmolality and hyponatremia; R65.21 Severe sepsis with septic shock; K74.60 Unspecified cirrhosis of liver; R16.2 Hepatomegaly with splenomegaly, not elsewhere classified; R18.8 Other ascites; I10 Essential (primary) hypertension
CPT/HCPCS: 123; 80053; 87040; 93005; 96365; 96366; 96368; 96375; 99285; 00123; 71046; 72128; 74176; 81003; 81015; 83605; 85025; 85610; 85730; 93010; J0692; J2405; J3370

== ENCOUNTER 2024-12-15 18:36 | Outpatient (REF) | payer MEDICAID, SELFPAY ==
[2024-12-15 21:15] LABS: ALT 54 U/L (16-63); AST 46 U/L (15-37); Albumin 3.6 g/dL (3.4-5.0); Alkaline Phosphatase 153 U/L (46-116); Anion Gap 14.8 mmol/L (3-11); BUN 21 mg/dL (7-18); Bilirubin, Total 8.4 mg/dL (0.2-1.0); CO2 18.2 mmol/L (21.0-32.0); CREATININE 0.7 mg/dL (0.70-1.30); Calcium 9.2 mg/dL (8.5-10.1); Chloride 103 mmol/L (98-107); Glucose 171 mg/dL (74-106); Potassium 3.4 mmol/L (3.5-5.1); Sodium 136 mmol/L (136-145); Total Protein 6.6 g/dL (6.4-8.2)
[2024-12-16 20:17] LABS: Hepatitis A Antibody IgM Negative (Negative); Hepatitis B Core Antibody Negative (Negative); Hepatitis B surface Ag Negative (Negative); Hepatitis C Ab w Rflx HCV PCR Negative (Negative)
== END 2024-12-15 18:37 | disposition home or self-care (01) ==
LOC: NCHCN 18:36
PROVIDERS: PCP Family Medicine; Visit Provider Family Medicine
DX: K70.31 Alcoholic cirrhosis of liver with ascites (principal)
CPT/HCPCS: 80053; 86704; 86709; 86803; 87340; 85025; 85610

== ENCOUNTER 2024-12-27 16:34 | Outpatient (REF) | payer MEDICAID, SELFPAY ==
[2024-12-27 21:29] LABS: Abs Immature Grans 0.04 10^3/uL (0.0-0.06); Absolute Basophil Count 0.03 10^3/uL (0.0-0.2); Absolute Eosinophil Count 0.23 10^3/uL (0.0-0.7); Absolute Lymphocyte Count 1.63 10^3/uL (1.2-3.4); Absolute Monocyte Count 1.15 10^3/uL (0.1-0.8); Absolute Neutrophil Count 5.05 10^3/uL (1.2-6.7); Basophils % 0.4 %; Eosinophils % 2.8 %; HCT 29.1 % (40.0-50.0); HGB 10.2 g/dL (13.5-17.5); Immature Grans % 0.5 %; MCH 34.3 pg (27.0-33.0); MCHC 35.1 % (32.0-36.0); MCV 98 fL (80-95); MPV 10.2 fL (8.0-11.0); Monocytes % 14.1 %; Neutrophils % 62.2 %; Platelet Count 108 10^3/uL (130-400); RBC 2.97 10^6/uL (4.36-5.78); RDW 16.4 % (11.8-14.1); RDW-SD 58.7 fL; WBC 8.13 10^3/uL (4.4-10.8)
[2024-12-27 21:37] LABS: ALT 48 U/L (16-63); AST 44 U/L (15-37); Albumin 3.6 g/dL (3.4-5.0); Alkaline Phosphatase 150 U/L (46-116); Anion Gap 11.3 mmol/L (3-11); BUN 28 mg/dL (7-18); Bilirubin, Total 5.8 mg/dL (0.2-1.0); CO2 22.7 mmol/L (21.0-32.0); Calcium 11.5 mg/dL (8.5-10.1); Chloride 99 mmol/L (98-107); Estimated GFR 37.97 (mL/min/1.73m2); Glucose 126 mg/dL (74-106); Sodium 133 mmol/L (136-145); Total Protein 6.6 g/dL (6.4-8.2)
== END 2024-12-27 16:35 | disposition home or self-care (01) ==
LOC: NCHCN 16:34
PROVIDERS: PCP Family Medicine; Visit Provider Family Medicine
DX: K70.31 Alcoholic cirrhosis of liver with ascites (principal)
CPT/HCPCS: 80053; 85025

== ENCOUNTER 2024-12-29 16:04 | Emergency (ER) | payer MEDICAID, SELFPAY ==
[2024-12-29 16:15] VITALS: BP 127/81; PULSE 90; RESP 18; TEMP 36.3; O2SAT 98
--- NOTE | 2024-12-29 16:30 | DI.RAD_ITS ---
Exam(s) XR CHEST 2V PA LATERAL EXAM: XR CHEST 2V PA LATERAL CLINICAL HISTORY: ?pneumonia TECHNIQUE: 2D digital imaging was performed. Two views. COMPARISON: CR,XR XR CHEST 2V PA LATERAL from 11/11/2024 FINDINGS: HEART: Normal size. Aorta: Not dilated. PULMONARY VASCULATURE: Normal. MEDIASTINUM: Unremarkable. LUNGS: Clear. PLEURAL SPACE: No pleural effusion or pneumothorax. BONE:Unremarkable for age. SOFT TISSUES: Unremarkable. IMPRESSION: No acute abnormality. DATA REPOSITORY: RADIATION DOSE DELIVERED:
[2024-12-29 16:33] LABS: Bilirubin Negative (Negative); Blood Moderate (Negative); Clarity Clear (Clear); Glucose Negative (Negative); Ketones Negative (Negative); Leukocyte Esterase Negative (Negative); Nitrite Negative (Negative)
--- NOTE | 2024-12-29 16:35 | ED.GENADUL_ITS ---
Discharge Plan Disposition Patient Disposition: Home Condition: Stable Discharge Details Clinical Impression: AMS (altered mental status) Primary Care Provider: Noman Guerin ED Provider: Nas Pham Home Meds and New Rx's Prescriptions: Continued potassium chloride 10 MEQ tablet extended release 1 tab PO DAILY Patient Comments: not sure of dose diltiazem HCl 240 mg Capsule,Extended Release 24hr 240 mg PO DAILY albuterol sulfate [Ventolin HFA] 90 mcg/actuation Hfa Aerosol Inhaler 1 puff inhalation Q6H PRN budesonide-formoterol [Symbicort] 160-4.5 mcg/actuation Hfa Aerosol Inhaler 1 inh inhalation DAILY omeprazole 20 mg Tablet,Delayed Release (Dr/Ec) 20 mg PO DAILY No Action furosemide 20 mg tablet 60 mg PO QAM Patient Comments: TAKE THREE TABLETS BY MOUTH EVERY MORNING Discharge Instructions Additional Instructions: I would recommend taking the lactulose 3-4 times a day and drinking more water rather than juice and wei glenn if possible. Follow-up with your primary care provider within 1 to 2 weeks. If you feel more ill or have new symptoms such as high fevers or severe abdominal pain return to the emergency department for reevaluation HPI General Date/Time Provider Initiated Documentation: 12/29/24 16:24 . Limitations to Documentation: no limitations . Information obtained by: patient . History of Present Illness 59 year old M presents to the emergency department with the chief complaint of foggy and unsteady, described as moderate, Patient started experiencing this day(s) (3 ) and it has been constant. No relieving factors improve symptom(s), No exacerbating factors reported . Patient notes denies chest pain, fever/chills, nausea/vomiting and shortness of breath. Patient did receive the following treatments prior to arrival, none Related Data Home Medications ?Medication ?Instructions ?Recorded ?Confirmed potassium chloride 10 mEq 1 tab PO DAILY 09/21/16 12/29/24 tablet,extended release albuterol sulfate 90 mcg/actuation 1 puff inhalation Q6H PRN 12/28/18 12/29/24 aerosol inhaler (Ventolin HFA) budesonide-formoterol HFA 160 1 inh inhalation DAILY 12/28/18 12/29/24 mcg-4.5 mcg/actuation aerosol inhaler (Symbicort) diltiazem HCl 240 mg 240 mg PO DAILY 12/28/18 12/29/24 capsule,extended release 24 hr omeprazole 20 mg tablet,delayed 20 mg PO DAILY 12/28/18 12/29/24 release furosemide 20 mg tablet 60 mg PO QAM 12/29/24 12/29/24 Allergies Allergy/AdvReac Type Severity Reaction Status Date / Time ceftriaxone Allergy Intermediate Skin Rash Verified 12/29/24 16:27 lisinopril Allergy Unknown unknown Unverified 12/29/24 16:27 General Stated Complaint: GenMedical ADRIÁN: 3 Review of Systems All systems reviewed & are unremarkable except as noted in HPI and below Constitutional Constitutional: Denies chills, Denies fever(s) and Reports weakness Cardiovascular Cardiovascular: Denies chest pain and Denies dyspnea Respiratory Respiratory: Denies cough and Denies dyspnea Gastrointestinal Gastrointestinal: Denies abdominal pain, Denies nausea and Denies vomiting Neurologic Neurologic: Reports memory loss and Reports weakness Psychiatric Psychiatric: Denies depression and Reports memory loss Exam Const General: no acute distress Orientation: alert HENMT Head: normal to inspection Ears: external ears normal General nose exam: external nose normal Mouth: moist mucous membranes Resp Effort & Inspection: normal respiratory effort and able to speak in complete sentences Auscultation: clear to auscultation bilaterally Cardio Rate: regular rate GI Palpation: soft and nontender Skin General skin exam: no rashes or lesions noted Neuro General: patient alert and patient oriented x3 Cranial Nerves: CN's II-XI intact bilaterally Cognition: normal cognition Speech: other (speech slow but clear) Sensory Exam: no sensory deficits noted Extrem General: normal to inspection Course Vital Signs Vital signs: Vital Signs Temperature 36.3 C L 12/29/24 16:15 Pulse 90 12/29/24 16:15 Respiratory Rate 18 12/29/24 16:15 Blood Pressure 127/81 12/29/24 16:15 Pulse Oximetry 98 12/29/24 16:15 Temperature 36.3 C L 12/29/24 16:15 Temperature Source Oral 12/29/24 16:15 Pulse 90 12/29/24 16:15 Respiratory Rate 18 12/29/24 16:15 Blood Pressure 127/81 12/29/24 16:15 Blood Pressure Position Sitting 12/29/24 16:15 Pulse Oximetry 98 12/29/24 16:15 Oxygen Delivery Method Room Air 12/29/24 16:15 Oxygen Flow Rate 0 12/29/24 16:15 Pain Level 0 12/29/24 16:15 Lab/Test Results Lab/Test Results: Laboratory Tests Range/Units 12/29/24 16:19 Urine Color (Yellow) Yellow Urine Clarity (Clear) Clear Urine pH (5-8) 6.0 Ur Specific [place] (1.005-1.025) 1.010 Urine Protein (Neg-Trace) mg/dL Negative Urine Ketones (Negative) mg/dL Negative Urine Blood (Negative) Moderate H Urine Nitrite (Negative) Negative Urine Bilirubin (Negative) Negative Urine Urobilinogen (Up to 0.2) mg/dL 1.0 H Ur Leukocyte Esterase (Negative) Negative Urine Glucose (Negative) mg/dL Negative Medical Decision Making 59-year-old male who was transferred to [facility] for cirrhosis and alcoholic hepatitis which is new onset for him, states he has been on the hospital for about a month but the last few days has had increased general fatigue, brain fog and unsteady gait. He also feels his speech is slow. He denies any severe headaches, chest pain, difficulty breathing, abdominal pain, fevers or chills. He is alert and oriented x 4 on arrival, his speech is slow but he is answering everything appropriately with a clear speech. Cranial nerves II through XII are intact, he is moving all extremities well though does feel mildly fatigued without unilateral weakness or similar side. He has no drift. Does have mild asterixis of his hands when outstretched. Concern for possible hepatic encephalopathy, will check a CBC, CMP, UA, Tylenol level and also obtain a CT of his head to evaluate for possible subdural and not chest x- ray. He has no abdominal tenderness and also do not feel imaging of his abdomen is indicated. Patient's labs show no significant changes especially informing peers a month ago. His creatinine is 1.7 and was checked yesterday is 2.0. He is urinating normally. He is stable and seen during questions appropriately and son says he appears better than he did yesterday when he had issues such as trying to put On a jug of juice. He feels well enough to go home I feel this is reasonable. He states he takes lactulose 2-3 times a day and I recommended doing it 3-4 times a day. He states he also drinks juice and wei glenn primarily and I recommended trying to drink more water. He will follow-up with his PCP and GI specialist and return precautions given Differential Diagnosis Differential Diagnosis: Hepatic encephalopathy, electrolyte abnormality, subdural Quality:SDOH Health Related Social Needs: No Data to Display PFSH All Active Problems (Updated 12/29/24 @ 18:31 by Nas Pham MD) AMS (altered mental status) (Acute) Medical History (Updated 12/29/24 @ 18:31 by Nas Pham MD) HTN (hypertension) Asthma Surgical History H/O shoulder surgery Social History Smoking risk assessment performed?: No Alcohol Intake: current Alcohol Intake frequency: 3 or more drinks per day Alcohol type: wine Drug use: Never Substance use type: does not use Do you feel safe at home: Yes Do you feel safe in your relationship?: Yes
--- NOTE | 2024-12-29 16:35 | DI.CT_ITS ---
Exam(s) CT HEAD WO EXAM: CT HEAD WO CLINICAL HISTORY: altered mental status. TECHNIQUE: Imaging Protocol: Axial computed tomography images with coronal and sagittal reformatted images were created and reviewed COMPARISON: No exams were available for comparison FINDINGS: Ventricles and Extra axial spaces: Normal in size and morphology for the patient's age. Hemorrhage: None. Cerebral parenchyma: No evidence of acute infarct or mass. Midline shift: None. Brainstem/Cerebellum: Normal. Calvarium: Normal. Visualized Paranasal sinuses:Clear. Mastoids: Clear. Soft Tissues: Unremarkable. ORBITS: Unremarkable. PITUITARY: Not enlarged. IMPRESSION: No acute intracranial process. RADIATION DOSE DELIVERED: Total DLP DATA REPOSITORY: All CT scans at this facility are submitted to the National Radiology Data Registry (NRDR) Dose Index Registry (DIR) with the [employer] (ACR). RADIATION OPTIMIZATION: All CT scans at this facility use at least one of these dose optimization te chniques: automated exposure control; mA and/or kV adjustment per patient size (includes targeted exa ms where dose is matched to clinical indication); or iterative reconstruction.
[2024-12-29 16:42] LABS: Epithelial Cells Rare HPF (Negative); WBC 0-2 HPF (0-5)
[2024-12-29 16:43] LABS: Bacteria Negative HPF (Negative); C & S Indicated? No; Casts Negative LPF (Negative); Crystals Negative HPF (Negative); Mucus Negative (Negative)
[2024-12-29 17:19] LABS: Abs Immature Grans 0.03 10^3/uL (0.0-0.06); Absolute Basophil Count 0.02 10^3/uL (0.0-0.2); Absolute Eosinophil Count 0.14 10^3/uL (0.0-0.7); Absolute Lymphocyte Count 1.53 10^3/uL (1.2-3.4); Absolute Neutrophil Count 4.49 10^3/uL (1.2-6.7); Basophils % 0.3 %; Eosinophils % 1.9 %; HCT 28.2 % (40.0-50.0); HGB 10.1 g/dL (13.5-17.5); Immature Grans % 0.4 %; Lymphocytes % 20.9 %; MCH 34.5 pg (27.0-33.0); MCHC 35.8 % (32.0-36.0); MCV 96 fL (80-95); MPV 9.6 fL (8.0-11.0); Neutrophils % 61.5 %; Platelet Count 104 10^3/uL (130-400); RBC 2.93 10^6/uL (4.36-5.78); RDW 15.9 % (11.8-14.1); RDW-SD 55.7 fL; WBC 7.31 10^3/uL (4.4-10.8)
[2024-12-29 17:31] LABS: Ammonia 59 umol/L (11-32)
[2024-12-29 17:34] LABS: INR 1.5 (0.9-1.1); PTT Activated 26.1 sec (20.6-30.2); Prothrombin Time 14.4 sec (9.1-11.1)
[2024-12-29 17:40] VITALS: PULSE 68; RESP 15; TEMP 36.7; O2SAT 97
[2024-12-29 17:43] LABS: Acetaminophen < 2 ug/mL (10-30)
[2024-12-29 17:52] LABS: ALT 47 U/L (16-63); AST 48 U/L (15-37); Albumin 3.4 g/dL (3.4-5.0); Alkaline Phosphatase 141 U/L (46-116); BUN 23 mg/dL (7-18); Bilirubin, Direct 3.7 mg/dL (0.0-0.2); Bilirubin, Total 6.3 mg/dL (0.2-1.0); CREATININE 1.7 mg/dL (0.70-1.30); Calcium 11.5 mg/dL (8.5-10.1); Chloride 98 mmol/L (98-107); Estimated GFR 46.15 (mL/min/1.73m2); Glucose 134 mg/dL (74-106); Lipase 57 U/L (<78); Potassium 3.2 mmol/L (3.5-5.1); Sodium 134 mmol/L (136-145); TSH (W/Ref FT4) 1.46 uIU/mL (0.36-3.74); Total Protein 6.9 g/dL (6.4-8.2)
[2024-12-29 17:54] LABS: Procalcitonin 0.12 ng/mL
[2024-12-29 18:13] LABS: ETHANOL BLOOD < 3.0 mg/dL (<10)
[2024-12-29 18:44] VITALS: BP 150/82; PULSE 87; RESP 14; O2SAT 97
== END 2024-12-29 18:45 | disposition home or self-care (01) ==
PROVIDERS: Emergency Provider Emergency Medicine; PCP Family Medicine
DX: R41.82 Altered mental status, unspecified (principal); K70.30 Alcoholic cirrhosis of liver without ascites; K70.10 Alcoholic hepatitis without ascites; I10 Essential (primary) hypertension
CPT/HCPCS: 80053; 83690; 84145; 86850; 86900; 86901; 87637; 99284; 70450; 71046; 80320; 80329; 81003; 81015; 82140; 82248; 83735; 84443; 85025; 85610; 85730

== ENCOUNTER 2025-01-05 09:48 | Outpatient (REF) | payer MEDICAID, SELFPAY ==
[2025-01-05 14:51] LABS: Abs Immature Grans 0.02 10^3/uL (0.0-0.06); Absolute Basophil Count 0.06 10^3/uL (0.0-0.2); Absolute Eosinophil Count 0.12 10^3/uL (0.0-0.7); Absolute Lymphocyte Count 1.41 10^3/uL (1.2-3.4); Absolute Monocyte Count 1.19 10^3/uL (0.1-0.8); Absolute Neutrophil Count 6.93 10^3/uL (1.2-6.7); Basophils % 0.6 %; Eosinophils % 1.2 %; HCT 29.7 % (40.0-50.0); HGB 10.9 g/dL (13.5-17.5); Immature Grans % 0.2 %; Lymphocytes % 14.5 %; MCH 34.3 pg (27.0-33.0); MCHC 36.7 % (32.0-36.0); MCV 93 fL (80-95); MPV 10.9 fL (8.0-11.0); Monocytes % 12.2 %; Neutrophils % 71.3 %; Platelet Count 117 10^3/uL (130-400); RBC 3.18 10^6/uL (4.36-5.78); RDW 14.7 % (11.8-14.1); RDW-SD 50.4 fL; WBC 9.73 10^3/uL (4.4-10.8)
[2025-01-05 15:51] LABS: ALT 49 U/L (16-63); AST 56 U/L (15-37); Albumin 3.5 g/dL (3.4-5.0); Alkaline Phosphatase 140 U/L (46-116); Anion Gap 13.2 mmol/L (3-11); BUN 22 mg/dL (7-18); Bilirubin, Total 5.7 mg/dL (0.2-1.0); CO2 22.8 mmol/L (21.0-32.0); CREATININE 1.5 mg/dL (0.70-1.30); Calcium 10.8 mg/dL (8.5-10.1); Chloride 96 mmol/L (98-107); Estimated GFR 53.63 (mL/min/1.73m2); Glucose 148 mg/dL (74-106); Sodium 132 mmol/L (136-145); Total Protein 6.6 g/dL (6.4-8.2)
[2025-01-05 16:05] LABS: Potassium 2.5 mmol/L (3.5-5.1)
== END 2025-01-05 09:49 | disposition home or self-care (01) ==
LOC: NCHCN 09:48
PROVIDERS: PCP Family Medicine; Visit Provider Family Medicine
DX: K70.31 Alcoholic cirrhosis of liver with ascites (principal)
CPT/HCPCS: 80053; 85025; 85610

== ENCOUNTER 2025-01-07 18:03 | Inpatient (IN) | payer MEDICAID, SELFPAY ==
[2025-01-07] VITALS (17 sets, daily range): BP systolic 99–136; BP diastolic 53–84; PULSE 72–79; RESP 6–23; TEMP 36.6–36.9; O2SAT 95–100
--- NOTE | 2025-01-07 18:00 | RT.EKG_ITS ---
APPROVED REPORT Exam: Resting ECG Reason for Exam: hypokalemia Patient Location: E HR:76 bpm ECG Measurements Heart Rate 76 AXIS AL 196 P 52 QRSd 104 QRS 23 QT 456 T 18 QTc 514 Conclusion Sinus rhythm, rate 76 Prolonged QT interval, QTc 514ms PVC No STEMI No significant changes from priors
--- NOTE | 2025-01-07 18:39 | ED.GENADUL_ITS ---
Discharge Plan Disposition Patient Disposition: Admit to [facility] Condition: Stable Discharge Details Clinical Impression: Hepatic encephalopathy Primary Care Provider: Noman Guerin ED Provider: Kavon Pederson Home Meds and New Rx's Prescriptions: No Action furosemide 20 mg tablet 60 mg PO QAM Patient Comments: TAKE THREE TABLETS BY MOUTH EVERY MORNING trazodone 50 mg tablet 50 mg PO DAILY Patient Comments: TAKE 1/2 TABLET BY MOUTH AT NIGHT spironolactone 50 mg tablet 50 mg PO DAILY Patient Comments: TAKE THREE TABLETS BY MOUTH EVERY DAY pantoprazole 40 mg tablet,delayed release (DR/EC) 40 mg PO DAILY Patient Comments: TAKE ONE TABLET BY MOUTH EVERY DAY potassium chloride 10 MEQ tablet extended release 1 tab PO DAILY Patient Comments: not sure of dose albuterol sulfate [Ventolin HFA] 90 mcg/actuation Hfa Aerosol Inhaler 1 puff inhalation Q6H PRN budesonide-formoterol [Symbicort] 160-4.5 mcg/actuation Hfa Aerosol Inhaler 1 inh inhalation DAILY omeprazole 20 mg Tablet,Delayed Release (Dr/Ec) 20 mg PO DAILY HPI General Date/Time Provider Initiated Documentation: 01/07/25 18:08 . HPI Narrative: 59 year-old male presents to ED today by EMS with a chief complaint of weakness, lethargy, confusion, multiple falls at home, and recent outpatient lab draw showing severe hypokalemia with onset chronically in the setting of cirrhosis. Quality described as generalized weakness, confusion, multiple falls, unsteady gait, no radiation to fever, chest pain, diplopia, endorses feeling shakey. Severity is described as severe. Palliating factors include nothing specific- has been on increased lactulose since last ED visit where he was discharged. Provoking factors include nothing specific. Events leading up to the incident/Associated Symptoms: Patient is followed by [facility]. Patient not anticoagulated. Related Data Home Medications ?Medication ?Instructions ?Recorded ?Confirmed potassium chloride 10 mEq 1 tab PO DAILY 09/21/16 01/07/25 tablet,extended release albuterol sulfate 90 mcg/actuation 1 puff inhalation Q6H PRN 12/28/18 01/07/25 aerosol inhaler (Ventolin HFA) budesonide-formoterol HFA 160 1 inh inhalation DAILY 12/28/18 01/07/25 mcg-4.5 mcg/actuation aerosol inhaler (Symbicort) omeprazole 20 mg tablet,delayed 20 mg PO DAILY 12/28/18 01/07/25 release furosemide 20 mg tablet 60 mg PO QAM 12/29/24 01/07/25 pantoprazole 40 mg tablet,delayed 40 mg PO DAILY 01/07/25 01/07/25 release spironolactone 50 mg tablet 50 mg PO DAILY 01/07/25 01/07/25 trazodone 50 mg tablet 50 mg PO DAILY 01/07/25 01/07/25 Allergies Allergy/AdvReac Type Severity Reaction Status Date / Time ceftriaxone Allergy Intermediate Skin Rash Verified 01/07/25 18:08 lisinopril Allergy Unknown unknown Unverified 01/07/25 18:08 General Stated Complaint: Fall/Non TraumaCriteria ADRIÁN: 3 Review of Systems All systems reviewed & are unremarkable except as noted in HPI and below Exam Narrative Exam Narrative: GENERAL APPEARANCE: Male-nourished, non-toxic, profoundly lethargic, falling asleep midsentence, atraumatic, no acute distress. SKIN: Warm, jaundiced, dry, intact, without rashes/lesions/ulcerations, no bruising. HEAD: Normocephalic, atraumatic, normal hair distribution for gender/age. EYES: Normal conjunctiva, no exudates on lids/lashes, scleral icterus, no horizontal or vertical nystagmus with EOM testing ENT: Nares patent, no circumoral cyanosis, no facial swelling NECK: Supple, trachea midline, painless cervical ROM, no cervical midline tenderness. LUNGS/CHEST: Lungs CTA bilaterally-no rhonchi/rales/wheezes diffusely, non- labored respirations, normal A/P diameter, symmetrical expansion, no chest wall deformity, no paradoxical motion or flail segment HEART (CV/PV): Regular rate and rhythm without murmur, no peripheral edema, no JVD. ABDOMEN: Soft, non-distended, no guarding, ascites present but no focal tenderness or rebound tenderness or Rovsing's or Aguiar sign, hepatomegaly present. MSK: Normal ROM, no swelling/deformity to bilateral UEs or LEs, moving all extremities without weakness, no cyanosis, spine midline without tenderness, normal curvature. NEURO: Mental Status AAOx4 - alert to person, place, time, events No facial droop, no forehead involvement, asterixis present, FNF testing abnormal likely in the setting of hepatic encephalopathy Motor: No focal weakness - strength 5/5 in bilateral UEs and LEs, proximal and distal, symmetric. Sensory: sensation intact to light touch globally. Gait NT PSYCH: euthymic, cooperative, pleasant, appropriate speech Course Vital Signs Vital signs: Vital Signs Temperature 36.9 C 01/07/25 18:04 Pulse 79 01/07/25 18:04 Respiratory Rate 18 01/07/25 18:04 Blood Pressure 114/84 01/07/25 18:04 Pulse Oximetry 98 01/07/25 18:04 Temperature 36.9 C 01/07/25 18:04 Temperature Source Tympanic 01/07/25 18:04 Pulse 79 01/07/25 18:04 Respiratory Rate 18 01/07/25 18:04 Blood Pressure 114/84 01/07/25 18:04 Pulse Oximetry 98 01/07/25 18:04 Oxygen Delivery Method Room Air 01/07/25 18:04 Oxygen Flow Rate 0 01/07/25 18:04 Pain Level 0 01/07/25 18:04 Medical Decision Making This dictation utilizes [id number] dictation software and may contain unedited grammatical errors. 59 year-old male presents to ED today by EMS with a chief complaint of weakness, lethargy, confusion, multiple falls at home, and recent outpatient lab draw showing severe hypokalemia with onset chronically in the setting of cirrhosis. Quality described as generalized weakness, confusion, multiple falls, unsteady gait, no radiation to fever, chest pain, diplopia, endorses feeling shakey, endorses diarrhea. Severity is described as severe. Palliating factors include nothing specific- has been on increased lactulose since last ED visit where he was discharged. Provoking factors include nothing specific. Events leading up to the incident/Associated Symptoms: Patient is followed by [facility]. Patients' medical history: Altered mental status, cirrhosis, patient trialing off and unreliable to give other medical history. Family and social history: Lives at home with his youngest son, denies EtOH use, poor diet. Pertinent exam findings / vital signs include very lethargic, often falling asleep midsentence, asterixis, benign cardiopulmonary status, benign abdomen with ascites, jaundiced. Differential / pathologies of concern include hepatic encephalopathy, cirrhosis, liver failure, less likely sepsis or other infectious etiology. Diagnostic studies of: - CBC, CMP, PT/INR, lactate, ammonia, lipase, TSH, magnesium, liver panel, UA, alcohol level, respiratory PCR swab. - CBC shows chronic anemia, no leukocytosis - PT/INR baseline - Lactate 1.7 negative - Potassium is 2.6 - Magnesium within normal limits - Bilirubin is improved from prior chronically elevated levels - Lipase within normal limits - TSH within normal limits - Urine is benign - Alcohol level negative - PCR swab negative - Ammonia level is rising even on increased dose of lactulose since last visit Interventions of: -Given 20mEq potassium IV x2, 2mg IV magnesium -Consult with Hospitalist [ ] - admitted at 2015. ED Course/Assessment/Plan: 59-year-old male presents with worsening gait abnormality, profound lethargy and weakness and some confusion with chronic jaundice and liver failure, he was seen within the past 2 weeks here and recommended that he increase his lactulose to 3-4 times daily, his ammonia level continues to rise despite this, patient has no evidence of trauma from the fall, no neck tenderness, no scalp hematoma, no bruising and denies any pain, I believe he is having worsening hepatic encephalopathy as cause of his falls with evidence as elevated ammonia level despite increase in lactulose in the outpatient setting, likely needs admission while his potassium replete and treatment for his hepatic encephalopathy. Disposition of Hepatic Encephalopathy. Patient verbalized understanding of the plan and return to ED criteria and engaged in shared decision making. Medical Records Medical records reviewed: Yes I reviewed the patient's medical records. Lab Data Lab results reviewed: Yes I reviewed the patient's lab results. Labs: Laboratory Tests Range/Units 01/07/25 01/07/25 01/07/25 18:34 18:56 19:20 WBC (4.4-10.8) 10^3/uL 7.06 RBC (4.36-5.78) 10^6/uL 2.92 L Hgb (13.5-17.5) g/dL 10.1 L Hct (40.0-50.0) % 27.7 L MCV (80-95) fL 95 MCH (27.0-33.0) pg 34.6 H MCHC (32.0-36.0) % 36.5 H RDW (11.8-14.1) % 14.4 H Plt Count (130-400) 10^3/uL 79 L MPV (8.0-11.0) fL 10.3 Immature Gran % % 0.3 Neutrophils % % 63.4 Lymphocytes % % 19.1 Monocytes % % 14.6 Eosinophils % % 2.3 Basophils % % 0.3 Nucleated RBC % (0.0-0.3) % 0.0 Absolute Neutrophils (1.2-6.7) 10^3/uL 4.48 Absolute Lymphocytes (1.2-3.4) 10^3/uL 1.35 Absolute Monocytes (0.1-0.8) 10^3/uL 1.03 H Absolute Eosinophils (0.0-0.7) 10^3/uL 0.16 Absolute Basophils (0.0-0.2) 10^3/uL 0.02 PT (9.1-11.1) sec 15.0 H INR (0.9-1.1) 1.5 H VBG Lactate (<or=2.0) mmol/L 1.7 Sodium (136-145) mmol/L 130 L Potassium (3.5-5.1) mmol/L 2.6 L* Chloride (98-107) mmol/L 96 L Carbon Dioxide (21.0-32.0) mmol/L 25.9 Anion Gap (3-11) mmol/L 8.1 BUN (7-18) mg/dL 21 H Creatinine (0.70-1.30) mg/dL 1.3 Est GFR (CKD-EPI 2020) (mL/min/1.73m2) 63.68 Glucose (74-106) mg/dL 129 H Calcium (8.5-10.1) mg/dL 10.1 Magnesium mg/dL 2.0 Total Bilirubin (0.2-1.0) mg/dL 5.7 H Conjugated Bilirubin (0.0-0.2) mg/dL 3.2 H AST (15-37) U/L 45 H ALT (16-63) U/L 40 Alkaline Phosphatase (46-116) U/L 128 H Ammonia (11-32) umol/L 71 H Total Protein (6.4-8.2) g/dL 6.3 L Albumin (3.4-5.0) g/dL 3.1 L Lipase (<78) U/L 50 TSH (0.36-3.74) uIU/mL 1.09 Urine Color (Yellow) Yellow Urine Clarity (Clear) Clear Urine pH (5-8) 7.0 Ur Specific [place] (1.005-1.025) 1.015 Urine Protein (Neg-Trace) mg/dL Negative Urine Ketones (Negative) mg/dL Negative Urine Blood (Negative) Small H Urine Nitrite (Negative) Negative Urine Bilirubin (Negative) Negative Urine Urobilinogen (Up to 0.2) mg/dL 1.0 H Ur Leukocyte Esterase (Negative) Negative Urine RBC (0-2) HPF 10-20 H Urine WBC (0-5) HPF 0-2 Ur Epithelial Cells (Negative) HPF Negative Urine Crystals (Negative) HPF Negative Urine Bacteria (Negative) HPF Negative Urine Mucus (Negative) Negative Ur Culture Indicated? No Urine Glucose (Negative) mg/dL Negative Ethyl Alcohol (<10) mg/dL < 3.0 COVID-19 Source Nasopharynx SARS-CoV-2 (PCR) (Negative) Negative Influenza Type A (PCR) (Negative) Negative Influenza Type B (PCR) (Negative) Negative RSV (PCR) (Negative) Negative Quality:SDOH Health Related Social Needs: Health related social needs food insecurity (Z59.41) PFSH All Active Problems (Updated 01/07/25 @ 21:20 by Jeb Christopher MD) Fall (Acute) Hepatic encephalopathy (Acute) AMS (altered mental status) (Acute) Medical History (Updated 01/07/25 @ 21:20 by Jeb Christopher MD) HTN (hypertension) Asthma Surgical History H/O shoulder surgery Social History Smoking/Tobacco Use Status: Never Smoking risk assessment performed?: Yes Alcohol Intake: former Drug use: Never Substance use type: does not use Do you feel safe at home: Yes Do you feel safe in your relationship?: Yes
[2025-01-07 19:00] LABS: Lactate 1.7 mmol/L (<or=2.0)
[2025-01-07 19:03] LABS: Abs Immature Grans 0.02 10^3/uL (0.0-0.06); Absolute Basophil Count 0.02 10^3/uL (0.0-0.2); Absolute Eosinophil Count 0.16 10^3/uL (0.0-0.7); Absolute Lymphocyte Count 1.35 10^3/uL (1.2-3.4); Absolute Monocyte Count 1.03 10^3/uL (0.1-0.8); Absolute Neutrophil Count 4.48 10^3/uL (1.2-6.7); Basophils % 0.3 %; Eosinophils % 2.3 %; HCT 27.7 % (40.0-50.0); HGB 10.1 g/dL (13.5-17.5); Immature Grans % 0.3 %; Lymphocytes % 19.1 %; MCH 34.6 pg (27.0-33.0); MCHC 36.5 % (32.0-36.0); MCV 95 fL (80-95); MPV 10.3 fL (8.0-11.0); Monocytes % 14.6 %; Neutrophils % 63.4 %; RBC 2.92 10^6/uL (4.36-5.78); RDW 14.4 % (11.8-14.1); RDW-SD 49.5 fL; WBC 7.06 10^3/uL (4.4-10.8)
[2025-01-07 19:12] LABS: INR 1.5 (0.9-1.1); Platelet Count 79 10^3/uL (130-400)
[2025-01-07 19:12] LABS: COVID-19 PCR Negative (Negative); Influenza A PCR Negative (Negative); Influenza B PCR Negative (Negative); RSV PCR Negative (Negative); Source Nasopharynx
[2025-01-07] MEDS: MAGNESIUM SULFATE 2 GM/50 ML BAG IV_INF (19:13)
[2025-01-07] MEDS: Normal Saline 1,000 ML 150 ML IV (19:13)
[2025-01-07] MEDS: POTASSIUM CHLORIDE 20 MEQ/100 ML BAG 50 MEQ IV_INF ×2 (19:14→21:14)
[2025-01-07 19:17] LABS: Ammonia 71 umol/L (11-32)
[2025-01-07] MEDS: Potassium Chloride 20 MEQ TABCR 40 MEQ PO (19:18)
[2025-01-07 19:27] LABS: ALT 40 U/L (16-63); AST 45 U/L (15-37); Albumin 3.1 g/dL (3.4-5.0); Alkaline Phosphatase 128 U/L (46-116); Anion Gap 8.1 mmol/L (3-11); BUN 21 mg/dL (7-18); Bilirubin, Direct 3.2 mg/dL (0.0-0.2); Bilirubin, Total 5.7 mg/dL (0.2-1.0); CO2 25.9 mmol/L (21.0-32.0); CREATININE 1.3 mg/dL (0.70-1.30); Calcium 10.1 mg/dL (8.5-10.1); Chloride 96 mmol/L (98-107); Estimated GFR 63.68 (mL/min/1.73m2); Glucose 129 mg/dL (74-106); Lipase 50 U/L (<78); Sodium 130 mmol/L (136-145); TSH (W/Ref FT4) 1.09 uIU/mL (0.36-3.74); Total Protein 6.3 g/dL (6.4-8.2)
[2025-01-07 19:29] LABS: Potassium 2.6 mmol/L (3.5-5.1)
[2025-01-07 19:41] LABS: ETHANOL BLOOD < 3.0 mg/dL (<10)
[2025-01-07 19:59] LABS: Bilirubin Negative (Negative); Blood Small (Negative); Clarity Clear (Clear); Glucose Negative (Negative); Ketones Negative (Negative); Leukocyte Esterase Negative (Negative); Nitrite Negative (Negative); Specific Gravity 1.015 (1.005-1.025)
[2025-01-07 20:07] LABS: Bacteria Negative HPF (Negative); C & S Indicated? No; Crystals Negative HPF (Negative); Epithelial Cells Negative HPF (Negative); Mucus Negative (Negative); WBC 0-2 HPF (0-5)
--- NOTE | 2025-01-07 21:09 | W.PM.HP.N ---
Date of service: 01/07/25 Time of Service: 21:09 Assessment and Plan Assessment and plan (1) Fall: Status: Acute Assessment and plan: The patient comes in w/ a fall which ocurred after he got up from the toilet. He did not have any loss of consciousness or hit his head. He was able to get back up w/o any pain of his upper body or extremity. On routine labs his Na is 130 and K 2.6. His bili, AST and Ammonia are all elevated. Recommend that we continue to monitor over night. He has no red-flat symptoms from the fall and ER deferred imaging. -Cont to monitor (2) Hepatic encephalopathy: Status: Acute Assessment and plan: His CBC shows thrombocytopenia d/t hepatic damage. His INR is elevated 1.5, Total Bilirubin 5.7. NA-MELDS 25 w/ 19.6% 3 month mortality -Administer Lactulose and monitor Ammonia -Cont w/ Spironolactone 50mg daily -Cont w/ Lasix 60mg daily History of Present Illness History of Present Illness Chief Complaint: Fall Narrative: The patient is a 59 y/o C M w/ PMH hepatic encephalopathy who is brought in today due to a fall which occurred when he was getting up from the toilet. He did not hit his head or have any loss of consciousness. He was able to get up and denies any back, hip or extremity pain. He is slow to answer questions and is jaundiced which is his baseline. He has been taking his medications and denies skipping any doses. He has no fever, chills or night sweats. He has no chest pain, palpitations, coughing, wheezing or dyspnea. He has no abdominal pain, n/v/d, melena or hematochezia. He denies any recent weight gain or lower extremity edema. Review of Systems Constitutional Constitutional: Denies chills, Denies fever(s), Denies headache(s), Denies night sweats and Denies weight loss Eyes Eyes: Denies change in vision and Denies diplopia ENT Ears, Nose, Mouth, and Throat: Denies dysphagia, Denies headache(s), Denies neck pain and Denies sore throat Cardiovascular Cardiovascular: Denies chest pain at rest, Denies irregular heart rhythm and Denies dyspnea Respiratory Respiratory: Denies chest congestion, Denies cough and Denies dyspnea Gastrointestinal Gastrointestinal: Denies melena, Denies hematochezia, Denies dysphagia, Denies vomiting and Denies hematemesis Genitourinary Genitourinary: Denies hematuria and Denies difficulty urinating Musculoskeletal Musculoskeletal: Denies neck pain Neurologic Neurologic: Denies headache(s) PFSH All Active Problems (Updated 01/07/25 @ 21:20 by Jeb Christopher MD) Fall (Acute) Hepatic encephalopathy (Acute) AMS (altered mental status) (Acute) Medical History (Updated 01/07/25 @ 21:20 by Jeb Christopher MD) HTN (hypertension) Asthma Surgical History H/O shoulder surgery Social History Smoking/Tobacco Use Status: Never Smoking risk assessment performed?: Yes Alcohol Intake: former Drug use: Never Substance use type: does not use Do you feel safe at home: Yes Do you feel safe in your relationship?: Yes Meds Allergies and Home Medications Allergies Allergy/AdvReac Type Severity Reaction Status Date / Time ceftriaxone Allergy Intermediate Skin Rash Verified 01/07/25 18:08 lisinopril Allergy Unknown unknown Unverified 01/07/25 18:08 Home Medications ?Medication ?Instructions ?Recorded ?Confirmed ?Type potassium chloride 10 mEq 1 tab PO DAILY 09/21/16 01/07/25 History tablet,extended release albuterol sulfate 90 mcg/actuation 1 puff inhalation Q6H PRN 12/28/18 01/07/25 History aerosol inhaler (Ventolin HFA) budesonide-formoterol HFA 160 1 inh inhalation DAILY 12/28/18 01/07/25 History mcg-4.5 mcg/actuation aerosol inhaler (Symbicort) omeprazole 20 mg tablet,delayed 20 mg PO DAILY 12/28/18 01/07/25 History release furosemide 20 mg tablet 60 mg PO QAM 12/29/24 01/07/25 History pantoprazole 40 mg tablet,delayed 40 mg PO DAILY 01/07/25 01/07/25 History release spironolactone 50 mg tablet 50 mg PO DAILY 01/07/25 01/07/25 History trazodone 50 mg tablet 50 mg PO DAILY 01/07/25 01/07/25 History Exam Const General: comfortable and no acute distress Nutritional Appearance: not cachectic Orientation: awake and other (drowsy) HENCA Head: normal to inspection Ears: hearing grossly normal bilaterally General nose exam: external nose normal Face and sinus: normal facial exam Eyes General: appearance normal, both eyes and all related structures Eyelids: eyelids normal Other: Bilateral icteric sclera Neck Neck: normal visual inspection and full ROM Chest Chest: normal inspection of the chest Resp Effort & Inspection: normal respiratory effort Auscultation: clear to auscultation bilaterally Cardio Rate: regular rate Rhythm: regular rhythm Heart Sounds: S1 normal and S2 normal GI Inspection: normal to inspection Palpation: soft Percussion: normal to percussion Auscultation: normal bowel sounds Skin General skin exam: no rashes or lesions noted and elasticity normal Other: Jaundiced Neuro General: patient awake Extrem General: normal to inspection and full ROM Results Labs 01/07/25 18:56 01/07/25 18:56 Labs: Laboratory Results - last 24 hr 01/07/25 01/07/25 01/07/25 18:34 18:56 19:20 WBC 7.06 RBC 2.92 L Hgb 10.1 L Hct 27.7 L MCV 95 MCH 34.6 H MCHC 36.5 H RDW 14.4 H Plt Count 79 L MPV 10.3 Immature Gran % 0.3 Neutrophils % 63.4 Lymphocytes % 19.1 Monocytes % 14.6 Eosinophils % 2.3 Basophils % 0.3 Nucleated RBC % 0.0 Absolute Neutrophils 4.48 Absolute Lymphocytes 1.35 Absolute Monocytes 1.03 H Absolute Eosinophils 0.16 Absolute Basophils 0.02 PT 15.0 H INR 1.5 H VBG Lactate 1.7 Sodium 130 L Potassium 2.6 L* Chloride 96 L Carbon Dioxide 25.9 Anion Gap 8.1 BUN 21 H Creatinine 1.3 Est GFR (CKD-EPI 2020) 63.68 Glucose 129 H Calcium 10.1 Magnesium 2.0 Total Bilirubin 5.7 H Conjugated Bilirubin 3.2 H AST 45 H ALT 40 Alkaline Phosphatase 128 H Ammonia 71 H Total Protein 6.3 L Albumin 3.1 L Lipase 50 TSH 1.09 Urine Color Yellow Urine Clarity Clear Urine pH 7.0 Ur Specific [place] 1.015 Urine Protein Negative Urine Ketones Negative Urine Blood Small H Urine Nitrite Negative Urine Bilirubin Negative Urine Urobilinogen 1.0 H Ur Leukocyte Esterase Negative Urine RBC 10-20 H Urine WBC 0-2 Ur Epithelial Cells Negative Urine Crystals Negative Urine Bacteria Negative Urine Mucus Negative Ur Culture Indicated? No Urine Glucose Negative Ethyl Alcohol < 3.0 COVID-19 Source Nasopharynx SARS-CoV-2 (PCR) Negative Influenza Type A (PCR) Negative Influenza Type B (PCR) Negative RSV (PCR) Negative Last Vital Signs Temp 36.9 C 01/07/25 18:04 Pulse 75 01/07/25 20:46 Resp 12 01/07/25 20:46 BP 108/53 L 01/07/25 20:46 Pulse Ox 96 01/07/25 20:46 Time Spent Time spent with Patient: 40-54 minutes Time was spent: preparing to see the patient(eg.review tests), obtaining and/or reviewing separately otained hiistory, ordering medications,tests, procedures, referring, communicating with other health hearing care professional, indepentently interpreting results and counseling the patient
--- NOTE | 2025-01-07 22:34 | W.PC.ACHO ---
Registration Status: Primary Language: Preferred Language: ED Information & Data Chief Complaint Fall/Non TraumaCriteria 01/07/25 18:39 Triage Note has recent labs, hypokalemia 01/07/25 18:04 , more lethargic and weak, fell this am. 0/10 pain. Medical / Surgical History (Last Reviewed 12/28/18 @ 17:10 by Radha Vee DO) HTN (hypertension) Asthma (Last Reviewed 12/28/18 @ 17:10 by Radha Vee DO) H/O shoulder surgery Most Recent Vital Signs Temperature 36.9 C 01/07/25 18:04 Temperature Source Tympanic 01/07/25 18:04 Pulse 72 01/07/25 22:01 Pulse 74 01/07/25 22:01 Respiratory Rate 6 L 01/07/25 22:01 Blood Pressure 136/75 01/07/25 22:01 Blood Pressure Mean 98 01/07/25 22:01 Pulse Oximetry 99 01/07/25 22:01 Oxygen Delivery Method Room Air 01/07/25 18:04 Oxygen Flow Rate 0 01/07/25 18:04 Pain Level 0 01/07/25 18:04 Allergies ceftriaxone Allergy (Intermediate, Verified 01/07/25 18:08) Skin Rash lisinopril Allergy (Unknown, Unverified 01/07/25 18:08) unknown Active Medications Generic Name Dose Route Start Last Admin Trade Name Freq PRN Reason Stop Dose Admin Sodium Chloride 1,000 mls @ 150 mls/hr 01/07/25 18:15 01/07/25 19:13 Saline 1000ml Bag IV 150 mls/hr INFUSION CAM Administration IV IV Catheter Type [Left Saline Lock Antecubital] IV Catheter Gauge [Left 18 Antecubital] Diet Orders Category Date Time Status Regular/Normal [DIET] Nutrition 01/08/25 Breakfast Ordered Diagnostics 01/07/25 01/07/25 01/07/25 Range/Units 19:20 18:56 18:34 WBC 7.06 (4.4-10.8) 10^3/uL RBC 2.92 L (4.36-5.78) 10^6/uL Hgb 10.1 L (13.5-17.5) g/dL Hct 27.7 L (40.0-50.0) % MCV 95 (80-95) fL MCH 34.6 H (27.0-33.0) pg MCHC 36.5 H (32.0-36.0) % RDW 14.4 H (11.8-14.1) % Plt Count 79 L (130-400) 10^3/uL MPV 10.3 (8.0-11.0) fL Immature Gran % 0.3 % Neutrophils % 63.4 % Lymphocytes % 19.1 % Monocytes % 14.6 % Eosinophils % 2.3 % Basophils % 0.3 % Nucleated RBC % 0.0 (0.0-0.3) % Absolute Neutrophils 4.48 (1.2-6.7) 10^3/uL Absolute Lymphocytes 1.35 (1.2-3.4) 10^3/uL Absolute Monocytes 1.03 H (0.1-0.8) 10^3/uL Absolute Eosinophils 0.16 (0.0-0.7) 10^3/uL Absolute Basophils 0.02 (0.0-0.2) 10^3/uL PT 15.0 H (9.1-11.1) sec INR 1.5 H (0.9-1.1) VBG Lactate 1.7 (<or=2.0) mmol/L Sodium 130 L (136-145) mmol/L Potassium 2.6 L* (3.5-5.1) mmol/L Chloride 96 L (98-107) mmol/L Carbon Dioxide 25.9 (21.0-32.0) mmol/L Anion Gap 8.1 (3-11) mmol/L BUN 21 H (7-18) mg/dL Creatinine 1.3 (0.70-1.30) mg/dL Est GFR (CKD-EPI 2020) 63.68 (mL/min/1.73m2) Glucose 129 H (74-106) mg/dL Calcium 10.1 (8.5-10.1) mg/dL Magnesium 2.0 mg/dL Total Bilirubin 5.7 H (0.2-1.0) mg/dL Conjugated Bilirubin 3.2 H (0.0-0.2) mg/dL AST 45 H (15-37) U/L ALT 40 (16-63) U/L Alkaline Phosphatase 128 H (46-116) U/L Ammonia 71 H (11-32) umol/L Total Protein 6.3 L (6.4-8.2) g/dL Albumin 3.1 L (3.4-5.0) g/dL Lipase 50 (<78) U/L TSH 1.09 (0.36-3.74) uIU/mL Urine Color Yellow (Yellow) Urine Clarity Clear (Clear) Urine pH 7.0 (5-8) Ur Specific [place] 1.015 (1.005-1.025) Urine Protein Negative (Neg-Trace) mg/dL Urine Ketones Negative (Negative) mg/dL Urine Blood Small H (Negative) Urine Nitrite Negative (Negative) Urine Bilirubin Negative (Negative) Urine Urobilinogen 1.0 H (Up to 0.2) mg/dL Ur Leukocyte Esterase Negative (Negative) Urine RBC 10-20 H (0-2) HPF Urine WBC 0-2 (0-5) HPF Ur Epithelial Cells Negative (Negative) HPF Urine Crystals Negative (Negative) HPF Urine Bacteria Negative (Negative) HPF Urine Mucus Negative (Negative) Ur Culture Indicated? No Urine Glucose Negative (Negative) mg/dL Ethyl Alcohol < 3.0 (<10) mg/dL COVID-19 Source Nasopharynx SARS-CoV-2 (PCR) Negative (Negative) Influenza Type A (PCR) Negative (Negative) Influenza Type B (PCR) Negative (Negative) RSV (PCR) Negative (Negative) Fldsu-ol-Istm Documentation Fingerstick Glucose Start: 01/07/25 18:09 Freq: Status: Active Protocol: Activity Type Activity Date Activity User E-sign Co-sign Detail Recorded Client Recorded Date Recorded By Document 01/07/25 18:08 BKG DAEMON(3) [id number] 01/07/25 18:09 BKG DAEMON(4) Intake and Output - 24 Hour Total 01/07/25 17:57 thru 01/07/25 21:15 Intake Total 150 Balance 150 Weight 74.389 kg Intake: IV 150 Falls Risk Assessment History of Falls No History 01/07/25 19:57 Contributing Factors No Factors 01/07/25 19:57 Ambulatory Aids Independent 01/07/25 19:57 Tubes/Lines None 01/07/25 19:57 Gait Evaluation No gait disturbance 01/07/25 19:57 Cognition No cognitive impairment 01/07/25 19:57 Fall Total Score 0 01/07/25 19:57 Level of Risk Standard/Low Risk 01/07/25 19:57 Problems (Last Reviewed 12/28/18 @ 17:10 by Radha Vee DO) Fall (Acute) Hepatic encephalopathy (Acute) v v v v v v v v v Sending and/or Receiving Nurses: Please use comment section below to note any information pertinent to the patient hand-off not included above. Information / Comments:Pt admit via ambulance from ED to Med/Surg uni this evening. Elevated liver enzymes and hepatic encephalopothy. Jaundice skin and confusion noted. Pt has abnormal lab values and is currently on bag 2 of 2 K replacement. Report received from:Katerine WINSTON RN, arrived on floor at 2222. 01/07/25
--- NOTE | 2025-01-08 | DI.CT_ITS ---
Exam(s) CT HEAD CERVICAL SPINE WO EXAM: CT HEAD CERVICAL SPINE WO CLINICAL HISTORY: confusion, fall history, coagulopathy. TECHNIQUE: Imaging Protocol: Axial computed tomography images with coronal and sagittal reformatted images were created and reviewed COMPARISON: CT CT HEAD WO from 12/29/2024 FINDINGS: The examination is limited due to patient motion artifact. CT Head: Ventricles and Extra axial spaces: Normal in size and morphology for the patient's age. Hemorrhage: None. Cerebral parenchyma: There is no evidence of an acute territorial infarct. Midline shift: None. Brainstem/Cerebellum: Normal. Calvarium: Normal. Visualized Paranasal sinuses/Mastoids: Clear. Soft Tissues: Unremarkable. CT Cervical Spine: Bones: No acute fracture or subluxation. There is a mild reversal of the normal cervical lordosis. A ge-appropriate degenerative these are seen. Soft Tissues: Unremarkable. Lung Apices: Clear. IMPRESSION: 1. The examination is limited by patient motion artifact. 2. No acute intracranial process. 3. No acute fracture or subluxation in the cervical spine. RADIATION DOSE DELIVERED: 1,397.93mGy.cm Total DLP DATA REPOSITORY: All CT scans at this facility are submitted to the National Radiology Data Registry (NRDR) Dose Index Registry (DIR) with the [employer] (ACR). RADIATION OPTIMIZATION: All CT scans at this facility use at least one of these dose optimization te chniques: automated exposure control; mA and/or kV adjustment per patient size (includes targeted exa ms where dose is matched to clinical indication); or iterative reconstruction.
[2025-01-08 06:33] LABS: HCT 25.1 % (40.0-50.0); MCH 34.1 pg (27.0-33.0); MCHC 35.9 % (32.0-36.0); MCV 95 fL (80-95); RBC 2.64 10^6/uL (4.36-5.78); RDW 14.5 % (11.8-14.1); RDW-SD 50.4 fL; WBC 5.74 10^3/uL (4.4-10.8)
[2025-01-08] MEDS: Normal Saline 1,000 ML 150 ML IV (06:51)
[2025-01-08 07:11] LABS: Anion Gap 8.4 mmol/L (3-11); BUN 19 mg/dL (7-18); CO2 22.6 mmol/L (21.0-32.0); CREATININE 1.1 mg/dL (0.70-1.30); Calcium 9.4 mg/dL (8.5-10.1); Chloride 104 mmol/L (98-107); Estimated GFR 77.81 (mL/min/1.73m2); Glucose 105 mg/dL (74-106); Potassium 3.1 mmol/L (3.5-5.1); Sodium 135 mmol/L (136-145)
[2025-01-08 07:21] LABS: Platelet Count 68 10^3/uL (130-400)
[2025-01-08 07:55] VITALS: BP 105/73; PULSE 80; RESP 12; TEMP 37; O2SAT 98
[2025-01-08] MEDS: Potassium Chloride 10 MEQ TABCR PO (08:03)
[2025-01-08] MEDS: Lactulose 20 GM/30 ML CUP PO ×3 (08:03→20:09)
[2025-01-08] MEDS: Furosemide 20 MG TAB 60 MG PO (08:03)
[2025-01-08] MEDS: Spironolactone 50 MG TAB PO (08:04)
--- NOTE | 2025-01-08 09:26 | INITIAL_ITS ---
Date of service: 01/08/25 Time of Service: 09:26 Care Management Initial Assmt Functional Status/Living Situation Patient Presentation: Anthony was awake and sitting in a recliner when CM met with him. He is pleasant and easy to engage in conversation. He is a 59 year old male with several SDOH risk factors and is currently staying with his son oJne in [place]. 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 Other natural supports are his son Reid (lives in [place]) and his close friend Diego Downs. Anthony has Alcoholic liver failure and is becoming very ill; he is unable to drive, work or navigate stairs. 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 Per pt, he does not have an income at this time and would like support with the application process for disability and is interested in learning more about community resources such as RCT ect. At some point he is hopeful to find affordable housing with a ground level apartment; he has heard of [facility] before and would like more info. Referral to [facility] was sent by CM, with pts permission. CM will follow. Town of Residence: [place] Resides with: Child Natural Supports: He lives with his son Jone, and his son Reid lives in [place]. Employment Status: Disabled Instrumental Activities of Daily Living (ADLs): Requires support with Dishes/food prep, Groceries, Heat/Utilities, Laundry and Transportation Medications Medication Management: No Issues/Barriers identified Physical Functioning/Mobility Assistive Device: Walker, cane Advance Directives Advance Directives: Do you have an Advance Directive: Y 01/07/25 21:48 AD On File at [facility]: Y 01/07/25 21:48 Date Asked 01/07/25 01/07/25 18:05 AD Date Reviewed 01/07/25 01/07/25 21:48 COLST On File at [facility] COLST Date Scanned Code Status Resuscitation Status Full Code Portal Pt does not currently have a portal and education provided: Yes Insurance Coverage/Financial Issues Insurance: Medicaid Financial Issues: Identified, see above. Care Team Visit Care Team Role Provider Type Kendall Guevara MD [facility] STAFF PHYSICIAN Noman Guerin MD Primary Care Provider NON-[facility] STAFF PHYSICIAN JANEY Virk Emergency Provider [facility] [employer] Jeb Christopher MD Admit Provider MD [facility] STAFF PHYSICIAN Attending Provider Discharge Potential Discharge Needs: PCP F/U Appt Anticipated Barriers to Discharge: None Identified Patient/Family Education Needs: Review discharge instructions, discuss Ask Me Three Transportation: Private vehicle Plan: Anticipate Anthony will discharge home with New services (if indicated) and a plan to follow up with community providers after discharge. Per pt, he has an appointment at [facility] on 01/12/25 that he's planning to attend. His son will provide transportation. Anthony would benefit from addition community support and resources and was referred to [facility] during this admission. Social Determinants of Health Screening Social Determinants of Health last assessed: 01/08/25 Will the Patient Participate in the Screening?: Yes Do you worry about having a steady place to live?: yes What is your living situation today?: I do not have steady housing Problems where you live: no known problems In the past 12 months, have you had to go without electric, gas, oil or water in your home?: no Have you or anyone in your house had to go without enough food to eat?: no Has lack of transportation kept you from medical appointments or from doing things needed for daily living?: no Has anyone in your life made you feel unsafe or unsupported?: no How hard is it for you to pay for the very basics like food, housing, medical care, and heating? Would you say it is:: Not hard at all Do you want help finding or keeping work or a job?: I do not need or want help If for any reason you need help with day-to-day activities such as bathing, preparing meals, shopping, managing finances, etc., do you get the help you need?: I could use a little more help How often do you feel lonely or isolated from those around you?: Sometimes Do you speak a language other than Maori at home?: No Does the patient want assistance with any of the above?: No Social Determinants of Health Comments(SDNM Details): Pt reports currently lives with son and he helps with ADL's. Can't work b/c of current condition. Health Related Social Needs Health related social needs: housing instability, housed, with risk of homelessness (Z59.811), food insecurity (Z59.41), problems with daily activities (Z73.9) and feeling lonely/isolated (Z60.8) PFSH All Active Problems (Updated 01/08/25 @ 10:57 by Laura Mcdaniel NP) Discharge planning issues (Acute) Hypokalemia (Acute) HTN (hypertension) (Chronic) Alcoholic liver failure (Acute) Fall (Acute) Hepatic encephalopathy (Acute) AMS (altered mental status) (Acute) Medical History (Updated 01/08/25 @ 10:57 by Laura Mcdaniel NP) Asthma Surgical History H/O shoulder surgery Social History Smoking/Tobacco Use Status: Never Smoking risk assessment performed?: Yes Alcohol Intake: former Drug use: Never Substance use type: does not use Housing: apartment Do you feel safe at home: Yes Do you feel safe in your relationship?: Yes
--- NOTE | 2025-01-08 09:57 | TELEP.MEDR_ITS ---
Date of service: 01/08/25 Time of Service: 09:57 Telepharmacy Home Med Rec Allergies Allergies: ceftriaxone Allergy (Intermediate, Verified 01/07/25 18:08) Skin Rash lisinopril Allergy (Unknown, Unverified 01/07/25 18:08) unknown Interview Person Interviewed: patient Quality Quality of Interview/Accuracy of Medication List: Fair Sources Sources used to compile medication list: [employer] Medication List and Retail Pharmacy Changes made to Home Medication List: ADDITIONS: * lactulose * loratadine * ciprofloxacin * vitamin D DELETIONS: * potassium CHANGES: * trazodone: decreased from 50mg to 25mg Additional Notes Additional Notes: It is unclear how reliable of a historian patient is. He reports he last took his medications at home yesterday 01/07. Recommended Changes Attestation: The home medication list is now updated to the best of my knowledge and is ready to be reconciled by the provider. [facility] Pharmacist at for any questions.
--- NOTE | 2025-01-08 10:12 | TELEP.MEDREC ---
Date of service: 01/08/25 Time of Service: 10:13 Telepharmacy Home Med Rec Allergies Allergies: ceftriaxone Allergy (Intermediate, Verified 01/07/25 18:08) Skin Rash lisinopril Allergy (Unknown, Unverified 01/07/25 18:08) unknown Interview Person Interviewed: PCP Quality Quality of Interview/Accuracy of Medication List: Excellent Sources Sources used to compile medication list: PCP/Specialist List Changes made to Home Medication List: ADDITIONS: Aquaphor ointment Breo Ellipta Potassium ER 20mEq triamcinolone ointment DELETIONS: Symbicort CHANGES: Furosemide: dose decreased from 60mg to 10mg daily spironolactone: dose decreased from 150mg to 25mg daily trazodone: dose increased from 25mg to 50mg daily Additional Notes Additional Notes: Med rec has been updated, please disregard earlier note. Patient's PCP med list was faxed to us and med list was updated accordingly. Patient last took his medications yesterday 01/07. Recommended Changes Attestation: The home medication list is now updated to the best of my knowledge and is ready to be reconciled by the provider. [facility] at for any questions.
--- NOTE | 2025-01-08 10:42 | PGE_ITS ---
Date of Service Date of service: 01/08/25 Time of Service: 10:42 Assessment and Plan Assessment and plan (1) Hepatic encephalopathy: Status: Acute Assessment and plan: slowly improving, now oriented to person, place and situation. did obtain head/cspine CT (patient can not provide reliable history, has had multiple falls, coagulopathy) which was negative added high dose thiamine continue lactulose, increase to TID from BID and reassess tomorrow. NA-MELDS 25 w/ 19.6% 3 month mortality (2) Alcoholic liver failure: Status: Acute Assessment and plan: see above quit drinking several months ago follow liver functions and coags avoid hepatotoxic drugs started on high dose thiamine monitor for bleeding continue lactulose, increased to TID continue spironalactone and lasix (3) Fall: Status: Acute Assessment and plan: fall precautions PT consultation (4) HTN (hypertension): Status: Chronic Assessment and plan: blood pressure controlled, monitor (5) Hypokalemia: Status: Acute Assessment and plan: replete and follow on spironalactone received IV mag, level 2.0 (6) Discharge planning issues: Status: Acute Assessment and plan: case management following for discharge planning discussed with DR Guevara Subjective Subjective Interval history since last seen: Patient remained confused oriented to person only overnight but slowly improving now able to say where he is and why. 2 small BM today. Hemodynamically remains stable. Exam Narrative Exam Narrative: Acutely and chronically ill male older than stated age. Skin is jaundice. Eyes icteric. Not injected oral mucosa is slightly dry neck full range of motion respirations even and unlabored cardiovascular regular rate and rhythm abdomen round denies tenderness no guarding no rebound no masses moves all extremities. Feet macerated, reddened, wounds. See nurses note for full description Objective Last Vital Signs Temp 37.0 C 01/08/25 07:55 Pulse 80 01/08/25 07:55 Resp 12 01/08/25 07:55 BP 105/73 01/08/25 07:55 Pulse Ox 98 01/08/25 07:55 Laboratory Results - last 24 hr 01/07/25 01/07/25 01/07/25 18:34 18:56 19:20 WBC 7.06 RBC 2.92 L Hgb 10.1 L Hct 27.7 L MCV 95 MCH 34.6 H MCHC 36.5 H RDW 14.4 H Plt Count 79 L MPV 10.3 Immature Gran % 0.3 Neutrophils % 63.4 Lymphocytes % 19.1 Monocytes % 14.6 Eosinophils % 2.3 Basophils % 0.3 Nucleated RBC % 0.0 Absolute Neutrophils 4.48 Absolute Lymphocytes 1.35 Absolute Monocytes 1.03 H Absolute Eosinophils 0.16 Absolute Basophils 0.02 PT 15.0 H INR 1.5 H VBG Lactate 1.7 Sodium 130 L Potassium 2.6 L* Chloride 96 L Carbon Dioxide 25.9 Anion Gap 8.1 BUN 21 H Creatinine 1.3 Est GFR (CKD-EPI 2020) 63.68 Glucose 129 H Calcium 10.1 Magnesium 2.0 Total Bilirubin 5.7 H Conjugated Bilirubin 3.2 H AST 45 H ALT 40 Alkaline Phosphatase 128 H Ammonia 71 H Total Protein 6.3 L Albumin 3.1 L Lipase 50 TSH 1.09 Urine Color Yellow Urine Clarity Clear Urine pH 7.0 Ur Specific [place] 1.015 Urine Protein Negative Urine Ketones Negative Urine Blood Small H Urine Nitrite Negative Urine Bilirubin Negative Urine Urobilinogen 1.0 H Ur Leukocyte Esterase Negative Urine RBC 10-20 H Urine WBC 0-2 Ur Epithelial Cells Negative Urine Crystals Negative Urine Bacteria Negative Urine Mucus Negative Ur Culture Indicated? No Urine Glucose Negative Ethyl Alcohol < 3.0 COVID-19 Source Nasopharynx SARS-CoV-2 (PCR) Negative Influenza Type A (PCR) Negative Influenza Type B (PCR) Negative RSV (PCR) Negative 01/08/25 05:58 WBC 5.74 RBC 2.64 L Hgb 9.0 L Hct 25.1 L MCV 95 MCH 34.1 H MCHC 35.9 RDW 14.5 H Plt Count 68 L MPV 11.0 Immature Gran % Neutrophils % Lymphocytes % Monocytes % Eosinophils % Basophils % Nucleated RBC % Absolute Neutrophils Absolute Lymphocytes Absolute Monocytes Absolute Eosinophils Absolute Basophils PT INR VBG Lactate Sodium 135 L Potassium 3.1 L Chloride 104 Carbon Dioxide 22.6 Anion Gap 8.4 BUN 19 H Creatinine 1.1 Est GFR (CKD-EPI 2020) 77.81 Glucose 105 Calcium 9.4 Magnesium Total Bilirubin Conjugated Bilirubin AST ALT Alkaline Phosphatase Ammonia Total Protein Albumin Lipase TSH Urine Color Urine Clarity Urine pH Ur Specific [place] Urine Protein Urine Ketones Urine Blood Urine Nitrite Urine Bilirubin Urine Urobilinogen Ur Leukocyte Esterase Urine RBC Urine WBC Ur Epithelial Cells Urine Crystals Urine Bacteria Urine Mucus Ur Culture Indicated? Urine Glucose Ethyl Alcohol COVID-19 Source SARS-CoV-2 (PCR) Influenza Type A (PCR) Influenza Type B (PCR) RSV (PCR) Time Spent with Patient Time Spent with Patient: 35-49 minutes Time was spent: preparing to see the patient(eg.review tests), obtaining and/or reviewing separately otained hiistory, ordering medications,tests, procedures, indepentently interpreting results and counseling the patient
[2025-01-08] MEDS: Potassium Chloride 10 MEQ TABCR 20 MEQ PO ×2 (11:38→16:34)
[2025-01-08] MEDS: THIAMINE 500 MG in Normal Saline 100 ML 200 MG IVPB ×2 (11:38→20:09)
[2025-01-08] MEDS: Budesonide/Formoterol 80/4.5 6.9 GM 60 PUFF INH IH ×2 (11:38→19:43)
[2025-01-08 15:39] VITALS: BP 127/74; PULSE 89; RESP 12; TEMP 37.2; O2SAT 98
[2025-01-08] MEDS: Normal Saline Flush 10 ML SYR (20:11)
[2025-01-08 20:29] VITALS: BP 125/75; PULSE 91; RESP 15; TEMP 36.7; O2SAT 99
[2025-01-09] MEDS: THIAMINE 500 MG in Normal Saline 100 ML 200 MG IVPB ×3 (04:01→19:46)
[2025-01-09] MEDS: Normal Saline Flush 10 ML SYR (04:02)
[2025-01-09 04:45] VITALS: BP 108/71; PULSE 80; RESP 15; TEMP 37.1; O2SAT 99
[2025-01-09 07:31] VITALS: BP 120/69; PULSE 83; RESP 17; TEMP 36.4; O2SAT 100
[2025-01-09 07:52] LABS: Abs Immature Grans 0.06 10^3/uL (0.0-0.06); Absolute Basophil Count 0.05 10^3/uL (0.0-0.2); Absolute Eosinophil Count 0.41 10^3/uL (0.0-0.7); Absolute Lymphocyte Count 1.93 10^3/uL (1.2-3.4); Absolute Monocyte Count 1.51 10^3/uL (0.1-0.8); Absolute Neutrophil Count 7.75 10^3/uL (1.2-6.7); Basophils % 0.4 %; Eosinophils % 3.5 %; HCT 28.1 % (40.0-50.0); HGB 9.7 g/dL (13.5-17.5); Immature Grans % 0.5 %; Lymphocytes % 16.5 %; MCH 34.2 pg (27.0-33.0); MCHC 34.5 % (32.0-36.0); MCV 99 fL (80-95); MPV 10.2 fL (8.0-11.0); Monocytes % 12.9 %; Neutrophils % 66.2 %; RBC 2.84 10^6/uL (4.36-5.78); RDW 14.8 % (11.8-14.1); RDW-SD 53.9 fL; WBC 11.71 10^3/uL (4.4-10.8)
[2025-01-09 08:00] LABS: INR 1.5 (0.9-1.1); Prothrombin Time 14.7 sec (9.1-11.1)
[2025-01-09 08:09] LABS: ALT 40 U/L (16-63); AST 42 U/L (15-37); Albumin 2.9 g/dL (3.4-5.0); Alkaline Phosphatase 131 U/L (46-116); Anion Gap 10.6 mmol/L (3-11); BUN 17 mg/dL (7-18); Bilirubin, Total 4.2 mg/dL (0.2-1.0); CO2 21.4 mmol/L (21.0-32.0); CREATININE 1.5 mg/dL (0.70-1.30); Calcium 9.4 mg/dL (8.5-10.1); Chloride 101 mmol/L (98-107); Diff Comment Diff Reviewed; Estimated GFR 53.63 (mL/min/1.73m2); Glucose 113 mg/dL (74-106); Magnesium 1.9 mg/dL; Platelet Count 85 10^3/uL (130-400); Potassium 3.2 mmol/L (3.5-5.1); RBC Morphology Normal; Sodium 133 mmol/L (136-145); Total Protein 5.9 g/dL (6.4-8.2)
[2025-01-09] MEDS: Budesonide/Formoterol 80/4.5 6.9 GM 60 PUFF INH IH ×2 (08:20→19:40)
[2025-01-09] MEDS: Lactulose 20 GM/30 ML CUP PO (08:43)
[2025-01-09] MEDS: Furosemide 20 MG TAB 60 MG PO (08:44)
[2025-01-09] MEDS: Spironolactone 50 MG TAB PO (08:44)
[2025-01-09] MEDS: Potassium Chloride 10 MEQ TABCR 20 MEQ PO ×2 (08:45→12:22)
--- NOTE | 2025-01-09 09:49 | PDOC.CMPRO ---
Date of service: 01/09/25 Time of Service: 09:52 Care Management Progress Note Progress Note Text Progress Note Text: Anthony was sitting up in chair when CM met with him. He was able to answer questions that we're asked of him. Anthony is interested in an increase in community supports for needs of housing, and transport. He is open to offering the phone number to [facility] for housing assistance, but he only wants a floor level living arrangement. Per Anthony, he is staying at his son Samuel's house, which is ideal for him, as he feels Samuel is very accommodating. He has another son, Orlando, who lives in [place]. When discussing discharge planning, Anthony made it clear that he was not open to possible STR/SNF and that he has HH RN come 2x weekly, which allows him to feel supported. Per Samuel, he is living in his stud apartment, sleeping in a recliner chair, often incontinent with stool and unable to be independent with ADL's. Per Samuel, this environment is not a safe space for him to live, and he would prefer Anthony to not come home. Per Orlando, he does not believe his home would be better, as he works 12 hour days, and could not provide care to Anthony either. Anthony has a palliative consult tomorrow, which both of the son's would like to phone in. CM offered education surrounding the life skills coach at [facility] which he declined wanting to meet with at this time. Discharge Potential Discharge Needs: PCP F/U Appt Anticipated Barriers to Discharge: Medical Status Patient/Family Education Needs: Review discharge instructions, discuss Ask Me Three Transportation: Private vehicle (via son ) Plan: Anticipate Anthony will discharge home with [facility] services HH PT/OT/RN/[employer] OPERATIONS SUPERINTENDENT vs. SNF and a plan to follow up with community providers after discharge. Per pt, he has an appointment at [facility] on 01/12/25 that he's planning to attend. His son will provide transportation. Anthony would benefit from addition community support and resources and was referred to [facility] during this admission. CM will continue to follow. Social Determinants of Health Screening Social Determinants of Health last assessed: 01/09/25 Will the Patient Participate in the Screening?: Yes Do you worry about having a steady place to live?: yes What is your living situation today?: I do not have steady housing Problems where you live: no known problems In the past 12 months, have you had to go without electric, gas, oil or water in your home?: no Have you or anyone in your house had to go without enough food to eat?: no Has lack of transportation kept you from medical appointments or from doing things needed for daily living?: no Has anyone in your life made you feel unsafe or unsupported?: no How hard is it for you to pay for the very basics like food, housing, medical care, and heating? Would you say it is:: Not hard at all Do you want help finding or keeping work or a job?: I do not need or want help If for any reason you need help with day-to-day activities such as bathing, preparing meals, shopping, managing finances, etc., do you get the help you need?: I could use a little more help How often do you feel lonely or isolated from those around you?: Sometimes Do you speak a language other than Slovenian at home?: No Does the patient want assistance with any of the above?: No Social Determinants of Health Comments(SDAZ Details): Pt reports currently lives with son and he helps with ADL's. Can't work b/c of current condition. Health Related Social Needs Health related social needs: housing instability, housed, with risk of homelessness (Z59.811), food insecurity (Z59.41), problems with daily activities (Z73.9) and feeling lonely/isolated (Z60.8) Interventions CM: Other (ALEIDA)
[2025-01-09] MEDS: Potassium Chloride 20 MEQ TABCR 40 MEQ PO (10:53)
--- NOTE | 2025-01-09 11:27 | PT.INIE ---
PT Notes Visit Reasons: Fall Physical Therapy Inpatient Initial Evaluation Date:01/09/2025 Referring Doctor: Laura Mcdaniel NP PT Orders: PT CONSULT: PT Evaluation and treatment Precautions: Fall risk, IV Access, standard precautions Patient Profile/Admitting Diagnosis: Anthony is a 59-year-old male presented to the ED after a fall getting off the toilet at his son's home where he resides.Pt labs in ED noted elevated Ammonia , AST and bilirubin levels. Patient only oriented to self and slow response to questions in the emergency room. Imaging of head and spine negative for acute findings. Patient diagnosed with hepatic encephalopathy and started lactulose. On hospital day 2, his cognition improved throughout the day patient oriented to person place and situation. PT consulted in anticipation of discharge when medically appropriate PMHX: Fall (Acute) Hepatic encephalopathy (Acute) AMS (altered mental status) (Acute) Medical History (Updated 01/07/25 @ 21:20 by Jeb Christopher MD) HTN (hypertension) Asthma Surgical History H/O shoulder surgery Social History/Home Situation: Pt currently resides with his son. No stairs to enter. His son works. Pt is disabled. He requires assistance for shopping, meals, transportation, laundry and housing at this time. Equipment Owned/DME: Question FWW and SPC Subjective:Pt reported initially that he was fine and did not want to walk but then was agreeable to walk into the [facility]. On returning to room he stated thank you. Objective: [] General Observation: thin male seated in bedside chair with tremor/ involuntary muscle contractions noted to BLE Proximal>distal. impaired motor coordination for bringing glass to mouth with RUE jerky motion Mental Status: alert, oriented to person, place and situation. Pt agreeable to participate after encouragement. Pt noted to be annoyed by therapist asking him to demonstrate his ability to walk. Pt noted with some word finding deficits and delayed response time to questions. Pain: denies ROM: [] Right Upper Extremity: WFL Left Upper Extremity: WFL Right Lower Extremity: WFL Left Lower Extremity: WFL except DF to neutral with knee extension Strength: [] Right Upper Extremity: grossly 3+/5 Left Upper Extremity: grossly 3+/5 Right Lower Extremity: hip:3-/5 , knee 3/5 ankle 3/5 Left Lower Extremity: hip 3-/5, knee 3/5, ankle 3/5pf, DF 3-/5 Sensation: impaired proprioception B feet, diminished light touch B feet. coordination: decreased accuracy and speed BUE and BLE MARJAN , finger to nose heel to rbenner Bed Mobility/Transfers: [] Supine to sit independent Sit to stand Supervision Stand to sit supervision Bed to chair supervision with FWW Gait: amb with FWW CGA 100 feet level surfaces including turns with wide LEVY impaired left foot clearance, foot flat at weight acceptance Balance: [] Static Sitting: Normal Dynamic Sitting: Good Static Standing: Good with BUE Dynamic Standing: Fair with BUE support Special Tests: 4 STAGE BALANCE TEST: Feet together 5 seconds 1/2 Stance unable without support Tandem stance __0__seconds unable without external support Single leg stance left___0_seconds, right__0__seconds----- unable without external support Mobility Limitations Standardized Measure [] [facility] AM-PAC 6 clicks Basic Mobility Inpatient Short Form: Raw Score: 21 CMS Score: 28.97% Informed Consent/Education: Patient instructed in purpose of PT consult. Assessment: Anthony is a 59 yo male presenting with resting and intention tremor BUE and BLE, neuropathy B feet , impaired motor control /coordination and balance without UE support which limit his ability to perform functional mobility safely and proficiently without assistance or assistive device. Patient presents with clinical signs and symptoms consistent with current/admitting diagnoses that have resulted to mobility limitations, gait instability, generalized weakness, and impairment of motor control as demonstrated by the following impairment level findings: 1. Decreased strength to BLE major muscle groups 2. Impaired standing balance 3. Limitation of joint range of motion in B Ankles 4. Impaired functional activity tolerance Impairments are contributing to the following functional limitations: 1. Inability to safely ambulate without assistive device 2. Increase completion time for mobility ADL performance 3. Increased fall risk Patient is assessed as a moderate complexity based on the following: History: 59-year-old male with impairment level findings, functional limitations, and past medical history as indicated above Examination: Demonstrable impairment in strength, balance, and mobility level with underlying impairments and functional limitations as documented above Presentation: evolving Decision Making: moderate Goals: 1. Modified Independent transfers with least restrictive device 2. Modified independent amb. >300 feet with least restrictive device 3. supervision with rail 2 steps to access facilities within community Plan of Care/Treatment Plan: 1-2x/day, 7 days/week x 1 week. Plan of care has been reviewed with the TEST CENTER MANAGER providing the service under Physical Therapy direction. Initiate Physical Therapy intervention for strengthening, bed mobility, transfers, gait, stairs, balance training, use of assistive device. DISCHARGE RECOMMENDATIONS: Patient will benefit from home health PT services in order to progress mobility level using least restrictive assistive ambulatory device, assess home safety, identify additional equipment needs, and establish a functional maintenance program that will increase ability of patient to remain at home. TREATMENT CODE/TIME: 21561/ [id number] Thank you for the opportunity to participate in the care of this patient. Madelyn Coto PT [facility]
[2025-01-09 11:34] VITALS: BP 122/83; PULSE 84; RESP 19; TEMP 36.7; O2SAT 100
[2025-01-09] MEDS: Normal Saline Flush 10 ML SYR IVP ×2 (12:20→19:46)
--- NOTE | 2025-01-09 12:48 | PHA.REVIEW2 ---
Pharmacy Admission Review Admission Clinical Review Admission Pharmacy Review: Discharge planning issues (Acute) Hypokalemia (Acute) Alcoholic liver failure (Acute) Fall (Acute) Hepatic encephalopathy (Acute) ceftriaxone Allergy (Intermediate, Verified 01/07/25 18:08) Skin Rash lisinopril Allergy (Unknown, Unverified 01/07/25 18:08) unknown Resuscitation Status Full Code Height 5 ft 9 in Weight 76.657 kg Pharmacy Admission Review Renal Dosing Renal Dosing: BUN 17 mg/dL (7-18) 01/09/25 07:42 Creatinine 1.5 mg/dL (0.70-1.30) H 01/09/25 07:42 Medications needing adjustments: Reviewed (CrCl 58.2 mL/min, SCr increased from 1.1) List of meds needing interventions: Current medications are okay Anticoagulation Anticoagulation: Hgb 9.7 g/dL (13.5-17.5) L 01/09/25 07:42 Hct 28.1 % (40.0-50.0) L 01/09/25 07:42 Plt Count 85 10^3/uL (130-400) L 01/09/25 07:42 INR 1.5 (0.9-1.1) H 01/09/25 07:42 Creatinine 1.5 mg/dL (0.70-1.30) H 01/09/25 07:42 DVT Prophylaxis: Reviewed (SCDs/TEDs, Hgb increased from 9) Relevant Labs Relevant Labs: Sodium 133 mmol/L (136-145) L 01/09/25 07:42 Potassium 3.2 mmol/L (3.5-5.1) L 01/09/25 07:42 Chloride 101 mmol/L (98-107) 01/09/25 07:42 Magnesium 1.9 mg/dL 01/09/25 07:42 Electrolytes, C-Reactive P, ESR: Reviewed (Na decreased from 135, K increased from 3.1, WBC increased from 5.74 to 11.71) Cardiac Review BP, HR, EF%: Reviewed (HR and BP WNL) List meds needing interventions: Has order for furosemide 10mg daily and spironolactone 25mg daily QTc Review QTc: Reviewed (514 from 01/07/25) IV to PO Switch IV Medications: Reviewed (thiamine) Home Meds Home Med List reviewed: Intervened Relevent Home Meds Not ordered & why?: ciprofloxacin, vitamin D2 (weekly), Breo Ellipta (substituted with Symbicort per pharmacy protocol), loratadine (PRN) and triamcinolone ointment Reached out to provider regarding missing home meds - ciprofloxacin, pantoprazole and trazodone. Provider put in orders for pantoprazole and trazodone. Per patients PCP - cipro for peritonitis prevention as had SBP as one of his admitting diagnosis there. Left him on awaiting GI consult. Current Meds Current Medication Order Review: Intervened Comments: Added IV admission order set
--- NOTE | 2025-01-09 13:51 | NUR.NOTE ---
Nursing Note: Documentation entered by Xiang Garg, student [employer]ONING [employer] reviewed and in agreement. Yaima Camacho, MSN, RNC-OB, clinical instructor.
[2025-01-09] MEDS: Lactulose 20 GM/30 ML CUP 30 GM PO ×2 (15:10→19:45)
[2025-01-09 15:27] VITALS: BP 129/78; PULSE 79; RESP 19; TEMP 37.1; O2SAT 100
--- NOTE | 2025-01-09 18:07 | W.PM.PROGNOT ---
Date of Service Date of service: 01/09/25 Time of Service: 11:00 Assessment and Plan Assessment and plan (1) Hepatic encephalopathy: Status: Acute Assessment and plan: slowly improving, oriented to person, flat affect, no eye contact, confused. Head CT neg Continue high dose thiamine Continue lactulose, increased dose to home dose provided by PCP NA-MELDS 25 w/ 19.6% 3 month mortality (2) Alcoholic liver failure: Status: Acute Assessment and plan: see above quit drinking several months ago follow liver functions and coags avoid hepatotoxic drugs started on high dose thiamine monitor for bleeding - platelets improving continue spironalactone and lasix - doses adjusted per dose provided by PCP (3) JACKY (acute kidney injury): Status: Acute Assessment and plan: Cr 1.5 - up from 1.1 4/6 Adj meds per PCP reported most recent dosing Trend (4) Fall: Status: Acute Assessment and plan: fall precautions PT consultation - see note (5) HTN (hypertension): Status: Chronic Assessment and plan: blood pressure controlled 129/78 today monitor (6) Hypokalemia: Status: Acute Assessment and plan: replete and follow on spironalactone potassium 3.2 - repleted 40 meq oral (7) Discharge planning issues: Status: Acute Assessment and plan: case management following for discharge planning discussed with DR Guevara Subjective Subjective Patient reports: no new complaints, tolerating a regular diet, voiding w/o difficulty, bowel movement and afebrile; denies diarrhea, nausea, vomiting or shortness of breath Interval history since last seen: The patient is awake and alert, lying in bed in a semi-Munson's position, and reports feeling cold. Warm blankets were provided, and the patient remains afebrile. The patient is still experiencing confusion, as he is unsure of his location or the current date, though he is aware of his name. He does not make eye contact and takes several minutes to respond to questions. When he does respond, his answers are often unrelated to the questions asked. For example, when asked how he was feeling and whether he was feeling better than yesterday, he replied, I want a salad, even though no questions regarding hunger or food preferences were asked. Exam Const General: no acute distress Orientation: alert HENMT Head: normal to inspection Ears: external ears normal General nose exam: external nose normal Mouth: moist mucous membranes Resp Effort & Inspection: normal respiratory effort and able to speak in complete sentences Auscultation: clear to auscultation bilaterally Cardio Rate: regular rate GI Inspection: normal to inspection and non-distended Palpation: soft and nontender Auscultation: hypoactive bowel sounds Skin General skin exam: no rashes or lesions noted Neuro General: patient alert, patient awake, not oriented x3 and oriented Patient Orientation: Person and Confused Cranial Nerves: CN's II-XI intact bilaterally Speech: other (speech slow but clear) Sensory Exam: no sensory deficits noted Extrem General: normal to inspection Objective Last Vital Signs Temp 37.1 C 01/09/25 15:27 Pulse 79 01/09/25 15:27 Resp 19 01/09/25 15:27 BP 129/78 01/09/25 15:27 Pulse Ox 100 01/09/25 15:27 Laboratory Results - last 24 hr 01/09/25 07:42 WBC 11.71 H RBC 2.84 L Hgb 9.7 L Hct 28.1 L MCV 99 H D MCH 34.2 H MCHC 34.5 RDW 14.8 H Plt Count 85 L MPV 10.2 Immature Gran % 0.5 Neutrophils % 66.2 Lymphocytes % 16.5 Monocytes % 12.9 Eosinophils % 3.5 Basophils % 0.4 Nucleated RBC % 0.0 Absolute Neutrophils 7.75 H Absolute Lymphocytes 1.93 Absolute Monocytes 1.51 H Absolute Eosinophils 0.41 Absolute Basophils 0.05 RBC Morphology Normal PT 14.7 H INR 1.5 H Sodium 133 L Potassium 3.2 L Chloride 101 Carbon Dioxide 21.4 Anion Gap 10.6 BUN 17 Creatinine 1.5 H Est GFR (CKD-EPI 2020) 53.63 Glucose 113 H Calcium 9.4 Magnesium 1.9 Total Bilirubin 4.2 H AST 42 H ALT 40 Alkaline Phosphatase 131 H Total Protein 5.9 L Albumin 2.9 L Time Spent with Patient Time Spent with Patient: 35-49 minutes Time was spent: preparing to see the patient(eg.review tests), ordering medications,tests, procedures, referring, communicating with other health career services assistant, indepentently interpreting results and counseling the patient
[2025-01-09 19:20] VITALS: BP 125/76; PULSE 74; RESP 18; TEMP 37; O2SAT 96
[2025-01-09] MEDS: traZODone 50 MG TAB PO (19:46)
[2025-01-10] MEDS: THIAMINE 500 MG in Normal Saline 100 ML 200 MG IVPB ×3 (03:54→20:40)
[2025-01-10] MEDS: Normal Saline Flush 10 ML SYR IVP ×2 (03:55→20:40)
[2025-01-10 07:13] LABS: Abs Immature Grans 0.03 10^3/uL (0.0-0.06); Absolute Basophil Count 0.04 10^3/uL (0.0-0.2); Absolute Eosinophil Count 0.42 10^3/uL (0.0-0.7); Absolute Lymphocyte Count 1.74 10^3/uL (1.2-3.4); Absolute Monocyte Count 0.89 10^3/uL (0.1-0.8); Absolute Neutrophil Count 6.09 10^3/uL (1.2-6.7); Basophils % 0.4 %; Eosinophils % 4.6 %; HCT 25.5 % (40.0-50.0); HGB 8.9 g/dL (13.5-17.5); Immature Grans % 0.3 %; Lymphocytes % 18.9 %; MCH 34.1 pg (27.0-33.0); MCHC 34.9 % (32.0-36.0); MCV 98 fL (80-95); MPV 10.4 fL (8.0-11.0); Monocytes % 9.7 %; Neutrophils % 66.1 %; RBC 2.61 10^6/uL (4.36-5.78); RDW 14.6 % (11.8-14.1); RDW-SD 52.1 fL; WBC 9.21 10^3/uL (4.4-10.8)
[2025-01-10 07:30] LABS: ALT 40 U/L (16-63); AST 43 U/L (15-37); Albumin 2.5 g/dL (3.4-5.0); Alkaline Phosphatase 131 U/L (46-116); Anion Gap 11.6 mmol/L (3-11); BUN 14 mg/dL (7-18); Bilirubin, Total 3.7 mg/dL (0.2-1.0); CO2 19.4 mmol/L (21.0-32.0); CREATININE 1.3 mg/dL (0.70-1.30); Calcium 9.4 mg/dL (8.5-10.1); Chloride 102 mmol/L (98-107); Estimated GFR 63.68 (mL/min/1.73m2); Glucose 123 mg/dL (74-106); Magnesium 1.5 mg/dL; Potassium 3.4 mmol/L (3.5-5.1); Sodium 133 mmol/L (136-145); Total Protein 5.3 g/dL (6.4-8.2)
[2025-01-10 07:31] LABS: Platelet Count 66 10^3/uL (130-400)
[2025-01-10 07:32] LABS: Diff Comment Diff Reviewed; Hypochromasia 1+
[2025-01-10 07:34] LABS: Ammonia 97 umol/L (11-32)
[2025-01-10] MEDS: Budesonide/Formoterol 80/4.5 6.9 GM 60 PUFF INH IH ×2 (08:31→19:44)
[2025-01-10] MEDS: Pantoprazole 40 MG TABCR PO (09:29)
[2025-01-10] MEDS: Furosemide 20 MG TAB 10 MG PO (09:30)
[2025-01-10] MEDS: Spironolactone 50 MG TAB 25 MG PO (09:30)
--- NOTE | 2025-01-10 09:58 | NUR.NOTE ---
patient Axox4, tired and sleeping in between care, had 10 BMs during fancy packer per fancy packer report, holding lactulose this AM and will discuss in MD rounds. Patient feels like he wants to go home today, will discuss POC in rounds. PT working with pt at this time, pt tolerating diet without n/v, trace edema to BLE but non pitting, abomen rounded but S/NT/ND. Jaundice to sclera, PIV intact, denies pain. Bed low/locked, call paul in reach, bed alarm on. Nursing Note:
--- NOTE | 2025-01-10 10:19 | PTTR_ITS ---
PT Notes Visit Reasons: Fall Inpatient Physical Therapy Treatment Note [facility] Date: 01/10/2025 PRECAUTIONS:Standard. IV Access SUBJECTIVE: Pt reports he is hopeful he will be going back to his son's home today. He reports he had a good night . He declined to sit in the chair stating he prefers to be on the bed then he can sit or lie down as he wants. OBJECTIVE: Pt presented supine in bed smiling when entered the room. Agreeable to participate ? PAIN: denied pain reported feet hurting at end of long walk. Pt ambulating without shoes Therapeutic Activities ([id number]): Direct one-on-one instruction in dynamic activities to improve functional performance. ?? Functional Transfers: Independent bed mobility including repositioning facilitation of sit to stand able to perform with supervision with wide LEVY without use of UE. With narrow LEVY pt requires use of BUE to push up. facilitation of surface to surface transfers with FWW with supervision including bed, chair and toilet Ambulation: Facilitated safe and correct performance of level surface ambulation covering a distance of 350 feet using use front wheeled walker with SBA . reported discomf ort in B feet the last 50 feet. Denied headache, chest pain, and lightheadedness throughout activity. Two verbal cueing provided for directional changes. --Facilitated ambulation with FWW in simulated apt with FWW ambulation <25 feet x 3 with supervision to simulate frequent need to get up for food, bathroom answering door etc. Dynamic balance standing without UE support for tasks ?with greater than shoulder width LEVY. Pt requires 1 UE support to adjust feet to narrower LEVY and intermittent external support to complete dynamic tasks with narrower LEVY.? ASSESSMENT:? Pt with improvement in balance and gait quality as noted by ability to clear Left LE.However continues with ataxic LLE Pt able to perform unsuppor shannon dynamic self care tasks with supervision without LOB with wide LEVY. Pt with improved mentation as well although became disoriented to location of room after walking in corridor. He was able to recognize location of room once back in his corridor. Pt continues with delayed response to questions however today they are appropriate answers to the question asked of him. PLAN: 1-2x/day, 7 days/week x 1 week. Plan of care has been reviewed with the MOBILITY DEVELOPER providing the service under Physical Therapy direction. Initiate Physical Therapy intervention for strengthening, bed mobility, transfers, gait, stairs, balance training, use of assistive device. TREATMENT CODE/TIME:[id number]/ [id number] DISCHARGE RECOMMENDATION: PT services in order to progress mobility level using least restrictive assistive ambulatory device, assess home safety, identify additional equipment needs, and establish a functional maintenance program that will increase ability of patient to remain at home.
[2025-01-10] MEDS: Potassium Chloride 20 MEQ TABCR 40 MEQ PO (10:32)
--- NOTE | 2025-01-10 11:00 | W.PALLCONSUL ---
Date of service: 01/10/25 Time of Service: 11:00 History of Present Illness Narrative: Anthony Sheppard is a 59 yo man from [place], [place] with End Stage Liver Disease. He was admitted to [facility] 2 days ago with hepatic encephalopathy and weakness leading to a fall. MELD-Na score at time of admission reportedly 25 (19% 3 month mortality)Hospitalist Team has asked us to see pt in consult to discuss Goals of Care and help with advanced care planning. 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 Also several [facility] admissions for EtOH withdrawal. 1 month [facility] admission 11/12-12/08/2024 for hepatitic encephalopathy due to alcoholic hepatitis, decompensated liver failure with cirrhosis and ascites. -DID have SBP (Sent home on daily cipro prophylaxis). -Did have hepatorenal syndrome, ATN -They included dx of aspiration PNA and sepsis. -Developed drug rash (bullous dermatitis), got course of oral prednisone. Mostly better now (feet were the longest to heal). -At d/c was prescribed rifaximin (called [facility] to report he could not afford) and lactulose -Seen by [facility] Palliative Care Team while there (has f/u scheduled for tomorrow with them): -AT that time wanted time limited trial of CPR and intubation, tube feedings, dialysis -Would not want continued treatment if there was no chance he could resume meaningful interaction with his family. -Last EtOH Early November (no EtOH since then). Longest period of abstinence over the last 5 years: went a whole year sober up until holidays 2022. Stopped drinking at that time after a [facility] admission for ascites. -Has not needed therapeutic paracentesis. Ascites is not too bad. Care Team: Primary Care physician: Dr. Guerin Hide Sorter: Has an outpt appt (unclear if he was ever seen as outpt there). Social HX: Has been living in [facility] apartment with son Jone in [place], [place] since December 2024 discharge from [facility]. Jone has partial custody of a 6 yo daughter( Kajal) . Prior to that he was living in [facility] and he fell down the stairs. Currently all his stuff is in storage (sons moved his items out while he was in [facility]). Marital Status: long ago, recently from agricultural engineering teacher partner. No current partner. Considers home town [place], but no one I can live with. 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 Children: Son Jone in [place], [place], son Reid ([place]) Mother: Alive and living in [place]: he finds her a breath of fresh air. Talks to her often by phone. Hobbies: Currently: watching TV, laying in recliner (futon not comfortable in apartment) Previously: No hobbies, worked and visited with friends. Additional Services: None. Impression of currents health status: Might need a liver, I don't know if I will. Was doing OK when he first when home early December. Then regressed, got weaker. -Can't do stairs, or drive(needs help with transportation) -Also had kidney issues when he was in the hospital, these are better. -Liver filters out toxins, -Continues to have neuropathy from the pau barre', this is painful, hurts to stand on his feet. What bothers you the most: Conflict with the son he was living with, (aparmtent was too small for them to live together). What worries you the most: That I will of Liver Failure, worried both about dying and about suffering with the illness. Coping mechanisms: Did not have any other coping mechanisms aside from EtOH. Work was important. Now he doesn't even think about it, no cravings. Goals: -Have a ground floor or accessible apartment to live in. -Get SSDI (I don't see myself ever working again). -Would need help with transportation. -[place] to live in would be close to [facility] (I need their help because of my medical problems, and I have friends down in [facility] area), my friends up here can travel -Short term: hoping to stay with family or friend until able to find his own place. PC with son Reid in [place]: -His goal is that his dad is comfortable for whatever time he has left. -His impression was that Dad did not have a lot of time left. (based on what happened in [facility]). -His main concern is WHERE is Dad going to go when he is discharged. He feels that gong back to live with Jone is not the best plan. ANd can't stay with him. -Nothing got done during the month he was out of hospital to apply for disability or applying for housing. -REID IS WILLING TO FILL OUT PAPERWORK FOR THIS, but someone needs to tell him. -Dad cannot stay with him, no room. Current information preferences: Function: Ambulation: Cannot do stairs, has used walker since November. ADLs: Able to prepare simple foods and snacks. Reports he can wash dishes and vacuum. iADLs: Pays his own bills (only bill currently is cell phone bill), reports he is otherwise independent Hearing: Vision: Cognition: See PE, very mild deficit today, Ox3. Falls: 2 days ago. Driving: I don't think it's safe for me to drive right now Palliative Performance Scale % Ambulation Activity and Evidence of Disease Self Care Intake Level of Consciousness 100 Full Normal activity, no evidence of disease Full Normal Full 90 Full Normal activity, some evidence of disease Full Normal Full 80 Full Normal activity with effort, some evidence of disease Full Normal or reduced Full 70 Reduced Unable to do normal work, some evidence of disease Full Normal or reduced Full 60 Reduced Unable to do hobby or some housework, significant disease Occasional assist necessary Normal or reduced Full or confusion 50 Mainly sit/lie Unable to do any work, extensive disease Considerable assistance required Normal or reduced Full or confusion 40 Mainly in bed Unable to do any work, extensive disease Mainly assistance Normal or reduced Full, drowsy, or confusion 30 Totally bed bound Unable to do any work, extensive disease Total care Reduced Full, drowsy, or confusion 20 Totally bed bound Unable to do any work, extensive disease Total care Minimal sips Full, drowsy, or confusion 10 Totally bed bound Unable to do any work, extensive disease Total care Mouth care only Drowsy or coma 0 - - - - Patient Score: 60 Spiritual history: jain, has not been active. Last Rights would be important. But not looking for communion. Palliative review of systems: See HPI Pain: Dyspnea: GI symptoms: Appetite: Depression: Anxiety: None Emotional Distress: Spiritual/Existential Distress: Labs: today Cr: 1.3 (range 1.1-1.5 this adm, note 2024 adm for ATN) Liver panel: Bili 3.7, transaminases mildly elevated. Albumin: 2.5 CBC: hgb 8.9 (10.9 at adm), plt 66 ammonia 97 INR: 1.5 (usual for him) Advanced Care Planning: Advanced Directive: 11/29/2024 AD on file, reviewed. Health Care Agent: per 11/2024 AD: son Jone Sheppard, Reid is alternate and sister Emerald is listed (he thinks she might be good person to help). See A/P COLST: Full code Limitations: NA; Not applicable NQ: Not Queried Assessment and Plan Assessment and plan (1) End stage liver disease: Status: Acute Assessment and plan: Mr. Sheppard is a 59 yo man with ESLD who has had marked decline in the last year, no longer able to work, significant Hepatic encephalopathy and weakness, needing accessible housing and may no longer be able to live alone and care for himself. His last drink was 2 months ago, prior to month long admission to [facility] for spont. bacterial peritonitis. Palliative Care met with him today to review goals of care, advanced care planning and also to access for capacity. #Capacity/hepatic encephalopathy: Mr. Coles has ESLD and hepatic encephalopathy. This means that his capacity will wax and wane. And sometimes it will not be apparent that he palacios snot have capacity to make a specific decision. Anthony appears to have capacity today to make simple and probably moderately complex decisions. But he is a slight bit slow, hesitant and can't recall exact dates or how long ago recent event was. Only able to name 13 animals at 1 minute (screen for HE). When asked repeatedly what he needs assistance with as far as ADLs and iADLS, he cannot name tasks that he needs help with, and I am concerned that he may be lacking insight as to some of his disabilities. Important to remember that he likely always has at least mild, subacute hepatic encephaloplathy. He will not remember instructions or be able to complete complex tasks. He is willing to have family assist him and family is wiling to help him (mange medications, complete applications for assistance and housing, with shopping and housekeeping). It is NOT safe for him to live without someone checking in on him at least daily. He will not be able to complete applications without ongoing assistance. #Goals of Care: Mr. Prieto's primary goal at this time is to find a handicapped accessible apartment where he can live. Ideally this place would be near [facility], but also near family and friends. He tells me he should not be living with either of his sons (sons concur) Regarding his health, he does not state any specific hopes. Worries: He is worried about dying. Both He and son did mention might need a liver transplant, we don't know. Regarding life sustaining treatment, we reviewed Advanced Directive completed at [facility] in late November. His care goals remain the same: He wants a time limited trial of CPR, intubation, aggressive treatment, if it is possible he would regain ability to interact with his family. However, if this was not looking possible, he would want supportive care to be withdrawn. Regarding healthcare agent: Mr. Prieto is reconsidering who would be willing to be his primary healthcare agent. He has signed this to his son Jone. But son Jone is very annoyed with him at this point. He wonders if it should be Reid (lives in [place] which is very far away). During this discussion patient identifies to other potential people who can help with medical decisions and support him in many capacities: His sister Emerald Zurita (a teacher who lives in [facility] and has a good head on her shoulders ) as well as his mom who lives in [place] and is the breath of fresh air of my life . He enjoys talking with her. After consideration, he does not wish to make any changes to his healthcare agent form today, but would like to talk about it again next time he meets with his PCP or with [facility] or [facility] palliative care team. #History of alcoholism: Patient shares history that he was able to maintain sobriety for a whole year from 2021 through end of 2022 after hospital admission for alcohol withdrawal. He is not sure why he started drinking again after 2022. Reports that he stoppedBoth he and son Reid stopped drinking again about a month before his November 2024 [facility] admission. He reports he does not have any cravings and has been very easy not to drink. Reports he has not been in counseling or to AA. I do see in [facility] note he has been to [facility] at least once. At this point patient does not think he needs any extra support. If he maintains sobriety, I suspect he might be feeling better and this may be when cravings started again. Recommend that medical providers revisit recovery counseling of some ilk at future outpatient visits to help him maintain sobriety given his tenuous medical situation. Discussed with care management team today. They are going to set up family meeting with both sons and patient to discuss discharge planning (short-term placement, ideas for long-term placement, applications for SSDI and moderate needs Medicaid application, etc.). Palliative care is happy to attend if you think this will be helpful. Patient has outpatient appointment with [facility] palliative care for 2 days from now (01/12/2025). Patient and family can decide whether he should follow-up with [facility] or [facility] as an outpatient (likely depends where his short-term placement will be after discharge). We are happy to see patient again during this hospital admission; please contact Palliative care nurse to request revisit (2) Alcoholic liver failure: Status: Acute (3) Hepatic encephalopathy: Status: Acute (4) Alcoholism: Status: Acute (5) Palliative care encounter: Status: Acute (6) Advanced care planning/counseling discussion: Status: Acute (7) Housing instability: Status: Acute Assessment and plan: 20 minutes spent today on Advance Care Planning. Patient and family participated voluntarily. Advance care planning may include (not limited to) explanation and discussion of advance directives, choosing and appointing healthcare agents, alternatives to various ACP tools, discussion of (and if indicated, completion of) COLST form, discussion of patient's values and overall goals for treatment, palliative and disease directive care options, ways to avoid hospital readmission including hospice discussions, care preferences should the patient's several other adverse health events.See today's palliative care note for additional information. This note was dictated using speech recognition software. Attempt was made at proofreading, but errors may be present. Please call with questions. PFSH All Active Problems (Updated 01/10/25 @ 11:33 by Tessy Perez MD) Housing instability (Acute) Advanced care planning/counseling discussion (Acute) Palliative care encounter (Acute) Alcoholism (Acute) End stage liver disease (Acute) JACKY (acute kidney injury) (Acute) Discharge planning issues (Acute) Hypokalemia (Acute) HTN (hypertension) (Chronic) Alcoholic liver failure (Acute) Fall (Acute) Hepatic encephalopathy (Acute) AMS (altered mental status) (Acute) Medical History (Updated 01/10/25 @ 11:33 by Tessy Perez MD) Asthma Surgical History H/O shoulder surgery Social History Smoking/Tobacco Use Status: Never Smoking risk assessment performed?: Yes Alcohol Intake: former Drug use: Never Substance use type: does not use Housing: apartment Do you feel safe at home: Yes Do you feel safe in your relationship?: Yes Exam Narrative Exam Narrative: 1 minute animal recall: 13 (<15 suggests HE) Oriented to month , year, president, town. Sometimes slow to answer questions. Mild hand tremor. NO asterixis Pleasant and cooperative. Results Last Vital Signs Temp 37 C 01/09/25 19:20 Pulse 74 01/09/25 19:20 Resp 18 01/09/25 19:20 BP 125/76 01/09/25 19:20 Pulse Ox 96 01/09/25 19:20 Labs 01/10/25 06:54 01/10/25 06:54 Labs: Laboratory Results - last 24 hr 01/10/25 06:54 WBC 9.21 RBC 2.61 L Hgb 8.9 L Hct 25.5 L MCV 98 H MCH 34.1 H MCHC 34.9 RDW 14.6 H Plt Count 66 L MPV 10.4 Immature Gran % 0.3 Neutrophils % 66.1 Lymphocytes % 18.9 Monocytes % 9.7 Eosinophils % 4.6 Basophils % 0.4 Nucleated RBC % 0.0 Absolute Neutrophils 6.09 Absolute Lymphocytes 1.74 Absolute Monocytes 0.89 H Absolute Eosinophils 0.42 Absolute Basophils 0.04 RBC Morphology See Below Hypochromasia 1+ Sodium 133 L Potassium 3.4 L Chloride 102 Carbon Dioxide 19.4 L Anion Gap 11.6 H BUN 14 Creatinine 1.3 Est GFR (CKD-EPI 2020) 63.68 Glucose 123 H Calcium 9.4 Magnesium 1.5 Total Bilirubin 3.7 H AST 43 H ALT 40 Alkaline Phosphatase 131 H Ammonia 97 H Total Protein 5.3 L Albumin 2.5 L Time Spent Time Spent with Patient Time Spent(min): 90,
[2025-01-10] MEDS: Rifaximin 550 MG TAB PO ×2 (11:48→20:39)
[2025-01-10 15:18] VITALS: BP 120/82; PULSE 86; RESP 18; TEMP 37.1; O2SAT 99
--- NOTE | 2025-01-10 16:47 | PDOC.CMPRO ---
Date of service: 01/10/25 Time of Service: 16:47 Care Management Progress Note Progress Note Text Progress Note Text: Anthony was laying in bed when CM met with him today. Anthony presented to be more alert today vs. previous interaction, yesterday. CM provided education on the [facility] organization, and some supports they could offer, related to the application for Long-Term Medicaid. With patient permission, CM then sent a referral to [facility]. Palliative spoke with Anthony, he seemed appreciative that he could be followed in this community vs. having tele-visits with [facility] Discharge Potential Discharge Needs: PCP F/U Appt Anticipated Barriers to Discharge: Medical Status Patient/Family Education Needs: Review discharge instructions, discuss Ask Me Three Transportation: Facility Transport (via Son (Samuel)) Plan: Anticipate Anthony will discharge home with New services HH PT/OT/RN/[facility] [employer] [facility] and a plan to follow up with community providers after discharge. His son will provide transportation. Anthony would benefit from addition community support and resources and was referred to [facility], and [facility] during this admission. CM will continue to follow. Social Determinants of Health Screening Social Determinants of Health last assessed: 01/10/25 Will the Patient Participate in the Screening?: Yes Do you worry about having a steady place to live?: yes What is your living situation today?: I do not have steady housing Problems where you live: no known problems In the past 12 months, have you had to go without electric, gas, oil or water in your home?: no Have you or anyone in your house had to go without enough food to eat?: no Has lack of transportation kept you from medical appointments or from doing things needed for daily living?: no Has anyone in your life made you feel unsafe or unsupported?: no How hard is it for you to pay for the very basics like food, housing, medical care, and heating? Would you say it is:: Not hard at all Do you want help finding or keeping work or a job?: I do not need or want help If for any reason you need help with day-to-day activities such as bathing, preparing meals, shopping, managing finances, etc., do you get the help you need?: I could use a little more help How often do you feel lonely or isolated from those around you?: Sometimes Do you speak a language other than Georgian at home?: No Does the patient want assistance with any of the above?: No Social Determinants of Health Comments(SDOH Details): Pt reports currently lives with son and he helps with ADL's. Can't work b/c of current condition. Health Related Social Needs Health related social needs: housing instability, housed, with risk of homelessness (Z59.811), food insecurity (Z59.41), problems with daily activities (Z73.9) and feeling lonely/isolated (Z60.8) Interventions CM: COA Anticipated HH Services Anticipated HH Services at Discharge [facility], OT, PT and RN Anticipated Date of Discharge: 01/12/25..
--- NOTE | 2025-01-10 16:53 | PT.INNT ---
PT Notes Visit Reasons: Fall Pt approached x 3 in the afternoon for PT Treatment however he declined stating he was not feeling well and had a lot on his mind. Nursing reports he has been up to the bathroom several times with his walker but returns to bed not wanting to sit in the chair.
--- NOTE | 2025-01-10 17:05 | NUR.NOTE ---
no changes to assessment this evening, pt has had 1 BM today, forgoing lactulose this shift due to 10 BMs overnight. Patient resting at this time, eating well, denies pain, AxOx4 no changes in cognition today, pending d/c plans, pt reports his son in [place] may be willing to take him. Bed low/locked, call paul in reach, bed alarm on. Nursing Note:
--- NOTE | 2025-01-10 18:49 | PGE_ITS ---
Date of Service Date of service: 01/10/25 Time of Service: 15:00 Assessment and Plan Assessment and plan (1) Hepatic encephalopathy: Status: Acute Assessment and plan: slowly improving, oriented to person, flat affect, no eye contact, confused. Head CT neg Continue high dose thiamine Continue lactulose, decreased to 20 gm TID after 10 BM overnight NA-MELDS 25 w/ 19.6% 3 month mortality Added rifaximin 550 mg BID per recommendation of PCP and [facility] Dr Corrales Discussed EGD with Dr Locke; referral from PCP was received; referral changed to urgent for both GI and Endoscopy; plan to do outpatient after patient is no longer encephalopathic. Dr Corrales stated she would call scheduling herself and they will call patient and patient's son with details of appoin tment. PCP Dr Guerin and Dr Guevara informed of discussion and plan. Patient was seen by palliative care - see their note. Patient remains a full code and does not want to go to SNF for acute rehab. Family - two sons, one here, one in [place], both do not want Anthony to live with them and request he is placed. Care mgrs aware, however patient is not willing at this time. (2) Alcoholic liver failure: Status: Acute Assessment and plan: see above quit drinking several months ago follow liver functions and coags INR 1.5 (baseline) LFT baseline AST 43 Alk phos 131 Ammonia 97 up from previous 01/07/25 of 71 depite increased lactulose avoid hepatotoxic drugs continue high dose thiamine monitor for bleeding - platelets 66 continue spironalactone and lasix - doses adjusted per dose provided by PCP Added Rifaximin 550 mg BID per recommendation of PCP and [facility] Dr Corrales (3) JACKY (acute kidney injury): Status: Acute Assessment and plan: Cr 1.3 down from 01/09 Adj meds per PCP reported most recent dosing Trend (4) Fall: Status: Acute Assessment and plan: fall precautions PT consultation - see note (5) HTN (hypertension): Status: Chronic Assessment and plan: blood pressure controlled 129/78 today monitor (6) Hypokalemia: Status: Acute Assessment and plan: replete and follow on spironalactone potassium 3.4 - repleted 40 meq oral (7) Discharge planning issues: Status: Acute Assessment and plan: case management following for discharge planning discussed with Dr Guevara Reviewed with Dr Guerin PCP [place] with [place] Corrales [facility] [place] Subjective Subjective Patient reports: no new complaints, tolerating a regular diet, voiding w/o difficulty, bowel movement and afebrile; denies diarrhea, nausea, vomiting or shortness of breath Interval history since last seen: Patient is awake, alert, someone confused as to date and location. Slow to respond to questions, no eye contact. Drifts often from conversation and has to be redirected. Hands are tremulous. Exam Narrative Exam Narrative: Reviewed vital signs and nurses notes. Constitutional: Alert and oriented to self. Appears older than stated age. Normal body habitus. Head: Normocephalic, no trauma. Face is thin Eyes: Pupils PERRL, EOM's intact. Eyelids symmetrical without lesions, discharge, or swelling. Chest: RRR, Normal S1, S2, distal pulses intact. Resp: Lungs clear to auscultation bilaterally, no wheezes, rales, or rhonchi. Abdomen: Soft, distended, bowel sounds present, ascites present Musculoskeletal: Weakness noted equally to all four extremities. Skin: No suspicious rashes or lesions. Capillary refill less than 2 sec. Neurologic: Cranial nerves II-XII intact. Alert and oriented x 3. Motor: No deficits noted. Sensory: Intact bilaterally all 4 extremities. Hematologic/Lymphatic: No ecchymosis, no lymphadenopathy. Objective Last Vital Signs Temp 37.1 C 01/10/25 15:18 Pulse 86 01/10/25 15:18 Resp 18 01/10/25 15:18 BP 120/82 01/10/25 15:18 Pulse Ox 99 01/10/25 15:18 Laboratory Results - last 24 hr 01/10/25 06:54 WBC 9.21 RBC 2.61 L Hgb 8.9 L Hct 25.5 L MCV 98 H MCH 34.1 H MCHC 34.9 RDW 14.6 H Plt Count 66 L MPV 10.4 Immature Gran % 0.3 Neutrophils % 66.1 Lymphocytes % 18.9 Monocytes % 9.7 Eosinophils % 4.6 Basophils % 0.4 Nucleated RBC % 0.0 Absolute Neutrophils 6.09 Absolute Lymphocytes 1.74 Absolute Monocytes 0.89 H Absolute Eosinophils 0.42 Absolute Basophils 0.04 RBC Morphology See Below Hypochromasia 1+ Sodium 133 L Potassium 3.4 L Chloride 102 Carbon Dioxide 19.4 L Anion Gap 11.6 H BUN 14 Creatinine 1.3 Est GFR (CKD-EPI 2020) 63.68 Glucose 123 H Calcium 9.4 Magnesium 1.5 Total Bilirubin 3.7 H AST 43 H ALT 40 Alkaline Phosphatase 131 H Ammonia 97 H Total Protein 5.3 L Albumin 2.5 L Time Spent with Patient Time Spent with Patient: >50 minutes Time was spent: preparing to see the patient(eg.review tests), ordering medications,tests, procedures, referring, communicating with other health child daycare worker, indepentently interpreting results, counseling the patient and care coordination
[2025-01-10 20:25] VITALS: BP 111/80; PULSE 87; RESP 22; TEMP 37.1; O2SAT 100
[2025-01-10] MEDS: Lactulose 20 GM/30 ML CUP PO (20:40)
[2025-01-10] MEDS: traZODone 50 MG TAB PO (20:40)
[2025-01-11] MEDS: Normal Saline Flush 10 ML SYR IVP ×3 (04:08→20:44)
[2025-01-11] MEDS: THIAMINE 500 MG in Normal Saline 100 ML 200 MG IVPB (04:08)
[2025-01-11 07:31] LABS: Abs Immature Grans 0.03 10^3/uL (0.0-0.06); Absolute Basophil Count 0.06 10^3/uL (0.0-0.2); Absolute Eosinophil Count 0.43 10^3/uL (0.0-0.7); Absolute Lymphocyte Count 1.69 10^3/uL (1.2-3.4); Absolute Monocyte Count 0.89 10^3/uL (0.1-0.8); Absolute Neutrophil Count 5.57 10^3/uL (1.2-6.7); Basophils % 0.7 %; HCT 27.4 % (40.0-50.0); HGB 9.5 g/dL (13.5-17.5); Immature Grans % 0.3 %; Lymphocytes % 19.5 %; MCH 33.8 pg (27.0-33.0); MCHC 34.7 % (32.0-36.0); MCV 98 fL (80-95); MPV 10.3 fL (8.0-11.0); Monocytes % 10.3 %; Neutrophils % 64.2 %; RBC 2.81 10^6/uL (4.36-5.78); RDW 14.3 % (11.8-14.1); RDW-SD 51.3 fL; WBC 8.67 10^3/uL (4.4-10.8)
[2025-01-11] MEDS: Budesonide/Formoterol 80/4.5 6.9 GM 60 PUFF INH IH ×2 (07:32→19:57)
[2025-01-11 07:35] VITALS: BP 140/90; PULSE 84; RESP 16; TEMP 36.8; O2SAT 100
[2025-01-11 07:43] LABS: Ammonia 71 umol/L (11-32)
[2025-01-11 07:45] LABS: Anion Gap 10.2 mmol/L (3-11); BUN 15 mg/dL (7-18); CO2 19.8 mmol/L (21.0-32.0); CREATININE 1.2 mg/dL (0.70-1.30); Calcium 9.6 mg/dL (8.5-10.1); Chloride 101 mmol/L (98-107); Glucose 117 mg/dL (74-106); Magnesium 1.5 mg/dL; Potassium 3.5 mmol/L (3.5-5.1); Sodium 131 mmol/L (136-145)
[2025-01-11 07:47] LABS: Diff Comment Diff Reviewed; Platelet Count 73 10^3/uL (130-400); Poikilocytes 2+
[2025-01-11] MEDS: Lactulose 20 GM/30 ML CUP PO ×2 (08:31→14:05)
[2025-01-11] MEDS: Pantoprazole 40 MG TABCR PO (08:31)
[2025-01-11] MEDS: Spironolactone 50 MG TAB 25 MG PO (08:32)
[2025-01-11] MEDS: Furosemide 20 MG TAB 10 MG PO (08:32)
[2025-01-11] MEDS: Rifaximin 550 MG TAB PO ×2 (08:32→20:44)
--- NOTE | 2025-01-11 10:18 | PT.INTREAT ---
PT Notes Visit Reasons: Fall Inpatient Physical Therapy Treatment Note [facility] Date: 01/11/2025 PRECAUTIONS:Standard. IV Access SUBJECTIVE: Pt reporting if he had a more comfortable chair he would stay out of bed longer. ( pt provided a motorized recliner which he reports as being much better than the other one. Pt reports his son's apartment is small and the FWW is not able to fit in the apt therefore he uses a cane for indoor ambulation independently prior to admission. OBJECTIVE: Pt presented supine in bed smiling when entered the room. Agreeable to participate ? PAIN: reported feet continue to hurt when he walks long distances especially without shoes Therapeutic Activities (08848b5): Direct one-on-one instruction in dynamic activities to improve functional performance. ?? Functional Transfers: Independent bed mobility including repositioning facilitation of sit to stand able to perform with supervision with wide LEVY without use of UE. With narrow LEVY pt requires use of BUE to push up. facilitation of surface to surface transfers with FWW with supervision including bed, chair and toilet Ambulation: . --Facilitated ambulation with cane in simulated apt <25 feet x 3 with min A to simulate frequent need to get up for food, bathroom answering door etc. Pt with very wide LEVY small step length B, impaired knee flexion B, reduced mar and high guard position of LUE.Pt requires intermittent stand rests and physical assist to sustain balance with cane Dynamic balance standing without UE support for tasks ?with greater than shoulder width LEVY. Pt requires 1 UE support to adjust feet to narrower LEVY and intermittent external support to complete dynamic tasks with narrower LEVY.? ASSESSMENT:?Pt requires increased assist with use of cane for mobility. Upon further discussion with pt and his cognition improving, He is unable to use an FWW within his son's apt d/t space limitations. Pt requires min A for transfers and ambulation with cane with increased risk for falls. Pt continues with ataxic gait more pronounced without BUE support to assist with advancement of UE and balance stability. Pt would benefit from Short term SNF to progress with strengthening, balance, transfers and gait with cane prior to discharge back to his son's home. PLAN: 1-2x/day, 7 days/week x 1 week. Plan of care has been reviewed with the ORTHOTICS PROSTHETICS TECHNICIAN providing the service under Physical Therapy direction. Initiate Physical Therapy intervention for strengthening, bed mobility, transfers, gait, stairs, balance training, use of assistive device. TREATMENT CODE/TIME:85549y2/ [id number] DISCHARGE RECOMMENDATION: Short term SNF in order to progress mobility level using least restrictive assistive ambulatory device, identify additional equipment needs, and establish a functional maintenance program that will increase ability of patient to remain at home.
[2025-01-11] MEDS: Potassium Chloride 20 MEQ TABCR PO (10:51)
--- NOTE | 2025-01-11 13:07 | CHAPLAIN ---
Anthony was wrapped up and sleeping in the recliner when I visited. He woke up when I spoke his name. He told me he thinks he may be more comfortable in bed and talked about not being able to get much rest here. He mentioned that his sister is coming up on Thursday, in case they need to move me out of here. Care Management is working with Anthony and his two son's to determined next steps for Anthony. I will continue to visit.
--- NOTE | 2025-01-11 14:20 | PTTR_ITS ---
PT Notes Visit Reasons: Fall Inpatient Physical Therapy Treatment Note [facility] Date: 01/11/2025 p.m. session PRECAUTIONS:Standard. IV Access SUBJECTIVE: Patient reports he was able to stay out of bed for 3 hours today due to comfort of chair. He does report being tired and requesting to go back to bed to take a nap. OBJECTIVE: Pt presented upright in chair. Agreeable to participate ? PAIN: denied pain patient reporting his feet do not hurt as much this afternoon Therapeutic Activities (27083d4): Direct one-on-one instruction in dynamic activities to improve functional performance. ?? Functional Transfers: Independent bed mobility including repositioning facilitation of sit to stand able to perform with supervision with wide LEVY without use of UE. With narrow LEVY pt requires use of BUE to push up. facilitation of surface to surface transfers with cane with min assist including bed, chair and toilet Ambulation: Facilitated safe and correct performance of level surface ambulation covering a distance of 300 feet using use front wheeled walker with SBA . reported discomfort in B feet the last 50 feet. Denied headache, chest pain, and lighthe adedness throughout activity. Two verbal cueing provided for directional changes. Dynamic balance standing without UE support for tasks ?with greater than shoulder width LEVY. Pt requires 1 UE support to adjust feet to narrower LEVY and intermittent external support to complete dynamic tasks with narrower LEVY.? ASSESSMENT: Patient demonstrates improved stability with use of FWW versus single-point cane for transfers and ambulation however patient continues to report there was not room for the FWW within his son's apartment. Short distance ambulation surface to surface with cane in room required min assist due to pelvic instability ataxic gait. Patient at increased risk for falls at this time due to strength deficits when ambulating with cane PLAN: 1-2x/day, 7 days/week x 1 week. Plan of care has been reviewed with the TIRE DESIGN ENGINEER providing the service under Physical Therapy direction. Initiate Physical Therapy intervention for strengthening, bed mobility, transfers, gait, stairs, balance training, use of assistive device. TREATMENT CODE/TIME:48337/[id number]?1253 DISCHARGE RECOMMENDATION: SNF in order to progress mobility level using least restrictive assistive ambulatory device, identify additional equipment needs, and establish a functional maintenance program that will increase ability of patient to remain at home.
--- NOTE | 2025-01-11 14:39 | PDOC.CMPRO ---
Date of service: 01/11/25 Time of Service: 14:39 Care Management Progress Note Progress Note Text Progress Note Text: Anthony was awake lying in bed when CM met with him. PT worked with Anthony and recommended SNF for STR which Anthony was agreeable to. Per Anthony, he now feels better, and thinks it would be more beneficial for him to go to [facility] to gain strength, prior to returning home. [facility] will call Anthony Thursday, they will help Anthony with a Long-Term Medicare application, as coordinated by CM. Anthony has asked about disability, which he will discuss with [facility]. He will be followed by palliative. CM sent referrals to [facility] and the [facility], he was offered a bed at the [facility], which he accepted. Per provider, he would be ready for discharge tomorrow. CM will coordinate transport. Discharge Potential Discharge Needs: PCP F/U Appt Anticipated Barriers to Discharge: None Identified Patient/Family Education Needs: Review discharge instructions, discuss Ask Me Three Transportation: [facility] Plan: Anticipate Anthony will discharge to the [facility] for STR and a plan to follow up with community providers after discharge. He will be transported by [facility]. Anthony would benefit from addition community support and resources and was referred to [facility], and [facility] during this admission. CM will continue to follow. Social Determinants of Health Screening Social Determinants of Health last assessed: 01/11/25 Will the Patient Participate in the Screening?: Yes Do you worry about having a steady place to live?: yes What is your living situation today?: I do not have steady housing Problems where you live: no known problems In the past 12 months, have you had to go without electric, gas, oil or water in your home?: no Have you or anyone in your house had to go without enough food to eat?: no Has lack of transportation kept you from medical appointments or from doing things needed for daily living?: no Has anyone in your life made you feel unsafe or unsupported?: no How hard is it for you to pay for the very basics like food, housing, medical care, and heating? 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 Can't work b/c of current condition. Health Related Social Needs Health related social needs: housing instability, housed, with risk of homelessness (Z59.811), food insecurity (Z59.41), problems with daily activities (Z73.9) and feeling lonely/isolated (Z60.8)
[2025-01-11 15:56] VITALS: BP 124/78; PULSE 83; RESP 12; TEMP 36.4; O2SAT 100
--- NOTE | 2025-01-11 16:18 | W.PM.PROGNOT ---
Date of Service Date of service: 01/11/25 Time of Service: 16:19 Assessment and Plan Assessment and plan (1) Hepatic encephalopathy: Status: Acute Assessment and plan: Awake, alert, conversant, pleasant, good eye contact Head CT neg Continue high dose thiamine Continue lactulose 20 gm TID - 2 BM over night NA-MELDS 25 w/ 19.6% 3 month mortality Continue rifaximin 550 mg BID per recommendation of PCP and [facility] Dr Corrales - the Rx has been sent, PCP office did PA and it is covered. Discussed EGD with Dr Locke; referral from PCP was received; referral changed to urgent for both GI and Endoscopy; plan to do outpatient after patient is no longer encephalopathic. Dr Corrales stated she would call scheduling herself and they will call patient and patient's son with details of appointment. PCP Dr Guerin and Dr Grimaldo informed of discussion and plan. Patient is willing to go to SNF - specifically the [facility]. Care managers working on getting the date and time for GI appt @ [facility]. (2) Alcoholic liver failure: Status: Acute Assessment and plan: see above quit drinking several months ago follow liver functions and coags INR 1.5 (baseline) LFT baseline Ammonia down to 71 from 97 4/8 avoid hepatotoxic drugs continue high dose thiamine monitor for bleeding - platelets 73 continue spironalactone and lasix - doses adjusted per dose provided by PCP Contnue Rifaximin 550 mg BID per recommendation of PCP and GI [facility] Dr Corrales (3) JACKY (acute kidney injury): Status: Acute Assessment and plan: Cr 1.2 - continues to improve Trend (4) Fall: Status: Acute Assessment and plan: fall precautions PT consultation - see note (5) HTN (hypertension): Status: Chronic Assessment and plan: blood pressure controlled 111/80 today monitor (6) Hypokalemia: Status: Acute Assessment and plan: replete and follow on spironalactone potassium 3.5 Continue KCL 20 meq daily Mag 1.5 - Mag 64 mg daily (7) Discharge planning issues: Status: Acute Assessment and plan: case management following for discharge planning discussed with Dr Grimaldo Reviewed with Dr Guerin PCP Subjective Subjective Patient reports: no new complaints Interval history since last seen: Patient is doing very well, awake, alert, sitting on the side of the bed. Interacted with PT. He is conversant, pleasant, makes good eye contact. He is agreeable to going to the [facility] tomorrow morning. Exam Narrative Exam Narrative: Reviewed vital signs and nurses notes. Constitutional: Alert and oriented x3. Appears older than stated age. Normal body habitus. Head: Normocephalic, no trauma. Face is thin Eyes: Pupils PERRL, EOM's intact. Eyelids symmetrical without lesions, discharge, or swelling. Chest: RRR, Normal S1, S2, distal pulses intact. Resp: Lungs clear to auscultation bilaterally, no wheezes, rales, or rhonchi. Abdomen: Soft, distended, bowel sounds present, ascites present Musculoskeletal: Weakness noted equally to all four extremities. Skin: No suspicious rashes or lesions. Capillary refill less than 2 sec. Neurologic: Cranial nerves II-XII intact. Alert and oriented x 3. Motor: No deficits noted. Sensory: Intact bilaterally all 4 extremities. Hematologic/Lymphatic: No ecchymosis, no lymphadenopathy. Objective Last Vital Signs Temp 36.4 C L 01/11/25 15:56 Pulse 83 01/11/25 15:56 Resp 12 01/11/25 15:56 BP 124/78 01/11/25 15:56 Pulse Ox 100 01/11/25 15:56 Laboratory Results - last 24 hr 01/11/25 07:10 WBC 8.67 RBC 2.81 L Hgb 9.5 L Hct 27.4 L MCV 98 H MCH 33.8 H MCHC 34.7 RDW 14.3 H Plt Count 73 L MPV 10.3 Immature Gran % 0.3 Neutrophils % 64.2 Lymphocytes % 19.5 Monocytes % 10.3 Eosinophils % 5.0 Basophils % 0.7 Nucleated RBC % 0.0 Absolute Neutrophils 5.57 Absolute Lymphocytes 1.69 Absolute Monocytes 0.89 H Absolute Eosinophils 0.43 Absolute Basophils 0.06 RBC Morphology See Below Poikilocytosis 2+ Sodium 131 L Potassium 3.5 Chloride 101 Carbon Dioxide 19.8 L Anion Gap 10.2 BUN 15 Creatinine 1.2 Est GFR (CKD-EPI 2020) 70.10 Glucose 117 H Calcium 9.6 Magnesium 1.5 Ammonia 71 H Time Spent with Patient Time Spent with Patient: >50 minutes Time was spent: preparing to see the patient(eg.review tests), ordering medications,tests, procedures, referring, communicating with other health primary care nurse, indepentently interpreting results, counseling the patient and care coordination
--- NOTE | 2025-01-11 19:23 | DSE_ITS ---
Date of service: 01/12/25 Time of Service: 08:00 DS: Diagnosis Discharge Diagnosis (1) Hepatic encephalopathy: Status: Acute (2) Alcoholic liver failure: Status: Acute (3) JACKY (acute kidney injury): Status: Acute (4) Fall: Status: Acute (5) HTN (hypertension): Status: Chronic (6) Hypokalemia: Status: Acute (7) Discharge planning issues: Status: Acute Discharge Plan Disposition Patient Disposition[facility] Facility(SNF) Condition: Improving Discharge Details Reason For Visit: Fall Admit Date/Time: 01/09/25 10:04 Admit Provider: Jeb Christopher Attending Provider: Jeb Christopher Primary Care Provider: Noman Guerin Hospital Course Hospital Course: * Date of Admission: 01/07/2025 * Date of Discharge: 01/12/2025 Chief Complaint: The patient was admitted after a fall while getting up from the toilet at his son's home. He did not lose consciousness, nor did he hit his head. 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 He was initially disoriented but regained orientation to person, place, and situation by hospital day 2. The patient was started on lactulose, which was increased to three times daily, and high-dose thiamine was administered. Additionally, rifaximin 550 mg BID was started to help manage his hepatic encephalopathy. His potassium levels were repleted, and he was closely monitored for hepatic decompensation and signs of bleeding. Physical therapy was consulted for discharge planning, and the patient was deemed to benefit from short-term residential facility care for mobility and rehabilitation. 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 Continue 20 gm TID, reassess after one week. * Spironolactone ? 50 mg daily. * Lasix ? 10 mg daily. * Thiamine ? 100 mg daily. * Magnesium ? 64 mg daily. * Potassium ? 20 mEq daily. * Rifaximin 550 mg twice a day Prescriptions have been sent to [facility] in [facility]. Dr Guerin's office has sent the PA for Rigaximin and it has been approved. Recommend CMP in one week. Physical Exam: * The patient is jaundiced, with icteric eyes and slightly dry oral mucosa. * Full range of motion in the neck. * Respiratory rate is even and unlabored. * Cardiovascular exam shows regular rate and rhythm. * Abdominal exam is unremarkable. * The patient can move all extremities. * Feet are macerated and reddened, with wounds noted. Assessment and Plan: * Hepatic encephalopathy: Continue lactulose, rifaximin, spironolactone, and Lasix. PCP follow-up in one week. * Alcoholic liver failure: Continue supportive care and avoid hepatotoxic drugs. * Fall: Continue fall precautions. SNF recommended by physical therapy for short-term rehabilitation. * Hypokalemia: Continue potassium repletion. Monitor electrolytes and CMP in one week. * Hypertension: Continue home medications. Social History: The patient lives with his son, Jone, in [place], [place], and has another son, Reid, who lives in [place]. He communicates regularly with his mother in [place]. 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 Goals of Care and Advanced Directives: The patient has expressed his wish for comfort measures rather than aggressive treatment if no meaningful improvement in his condition is possible. He was previously seen by the palliative care team at [facility] and had discussed a time- limited trial of CPR, intubation, tube feedings, and dialysis. He remains a full code. Discharge Recommendations: * Follow-up appointments: Hepatology, GI for recommended EGD, primary care, and palliative care. * Physical therapy: Home health services to assist with mobility and assess home safety post SNFadmission. * Social support: Assistance with transportation and long-term disability paperwork. Concerns: The patient's son, Reid, has expressed concern about the discharge destination. Anthony is encouraged to identify an alternative living situation due to concerns regarding his current living situation with his son, Jone. Conclusion: Anthony is being discharged with a comprehensive plan for ongoing management of his hepatic encephalopathy and liver failure. He will also receive support for his mobility and functional status through physical therapy. Follow-up with specialists and social service liaison will be crucial to ensuring the patient?s safety and comfort in the next phase of care. The patient is discharged to the [facility]. Home Meds and New Rx's Prescriptions: New lactulose 10 gram/15 mL Solution 20 g PO TID Qty: 473 0RF Rx Instructions: 30 ml three times a day potassium chloride [Klor-Con M20] 20 mEq Tablet,Er Particles/Crystals 20 meq PO DAILY Qty: 30 0RF magnesium chloride [Mag 64] 64 mg Tablet,Delayed Release (Dr/Ec) 64 mg PO DAILY Qty: 30 0RF Xifaxan 550 mg Tablet 550 mg PO BID Qty: 60 0RF thiamine HCl (vitamin B1) 100 mg capsule 100 mg PO DAILY Qty: 30 0RF Continued furosemide 20 mg tablet 10 mg PO QAM trazodone 50 mg tablet 50 mg PO HS spironolactone 50 mg tablet 25 mg PO DAILY pantoprazole 40 mg tablet,delayed release (DR/EC) 40 mg PO DAILY Patient Comments: TAKE ONE TABLET BY MOUTH EVERY DAY ergocalciferol (vitamin D2) 1,250 mcg (50,000 unit) capsule 1,250 mcg PO .weekly Patient Comments: TAKE 1 CAPSULE BY MOUTH ONCE A WEEK FOR 8 DOSES ciprofloxacin HCl 500 mg tablet 500 mg PO DAILY Patient Comments: TAKE ONE TABLET BY MOUTH EVERY MORNING loratadine 10 mg tablet 10 mg PO DAILY PRN (Reason: allergic symptoms) Patient Comments: TAKE ONE TABLET BY MOUTH EVERY DAY Aquaphor Healing 41 % ointment 1 applic topical BID PRN fluticasone furoate-vilanterol [Breo Ellipta] 100-25 mcg/dose blister with device 1 inh inhalation DAILY potassium chloride 20 mEq tablet extended release 20 meq PO BID triamcinolone acetonide 0.1 % ointment 1 applic TOPICAL BID Patient Comments: APPLY TOPICALLY TWO TIMES A DAY albuterol sulfate [Ventolin HFA] 90 mcg/actuation Hfa Aerosol Inhaler 1 puff inhalation Q6H PRN Discontinued lactulose [Constulose] 10 gram/15 mL solution 45 ml PO TID Patient Comments: TAKE 45MLS BY MOUTH THREE TIMES A DAY Discharge Instructions Activity:: Activity as Tolerated Equipment/Supplies:: No Equipment Needed Diet:: As Tolerated Discharge Orders Discharge Orders: Discharge Order (Routine); Ordered 01/12/25 Ordered By: Anabela Shi DS: Summary Time Spent with Patient providing and/or coordinating discharge services: Greater than 30 minutes Status at Discharge Functional status at discharge: uses cane/walker Overall status at discharge: patient is back to baseline Mental Status: mental status grossly normal Speech and Movement: speech and movement normal Mood: congruent mood Affect: normal affect Quality:SDOH Health Related Social Needs: Health related social needs housing instability, house d, with risk of homelessness (Z59.811), food insecurity (Z59.41), problems with daily activities (Z73.9), feeling lonely/isolated (Z60.8) Exam Narrative Exam Narrative: Reviewed vital signs and nurses notes. Constitutional: Alert and oriented x3. Appears older than stated age. Normal body habitus. Head: Normocephalic, no trauma. Face is thin Eyes: Pupils PERRL, EOM's intact. Eyelids symmetrical without lesions, discharge, or swelling. Chest: RRR, Normal S1, S2, distal pulses intact. Resp: Lungs clear to auscultation bilaterally, no wheezes, rales, or rhonchi. Abdomen: Soft, distended, bowel sounds present, ascites present Musculoskeletal: Weakness noted equally to all four extremities. Skin: No suspicious rashes or lesions. Capillary refill less than 2 sec. Neurologic: Cranial nerves II-XII intact. Alert and oriented x 3. Motor: No deficits noted. Sensory: Intact bilaterally all 4 extremities. Hematologic/Lymphatic: No ecchymosis, no lymphadenopathy. Psych Mental Status: mental status grossly normal Speech and Movement: speech and movement normal Mood: congruent mood Affect: normal affect DS: Data Vitals/I&O Vitals and I&O: Vital Signs Temperature 36.4 C L 01/11/25 15:56 Temperature Source Temporal Artery Scan 01/11/25 15:56 Pulse 83 01/11/25 15:56 Pulse 74 01/07/25 22:01 Respiratory Rate 12 01/11/25 15:56 Respiratory Effort Normal 01/07/25 22:36 Respiratory Depth Normal 01/07/25 22:36 Respiratory Pattern Normal 01/07/25 22:36 Blood Pressure 124/78 01/11/25 15:56 Blood Pressure Mean 98 01/07/25 22:01 Pulse Oximetry 100 01/11/25 15:56 Oxygen Delivery Method Room Air 01/11/25 15:56 Oxygen Flow Rate 0 01/11/25 15:56 Pain Level 0 01/11/25 15:56 Intake & Output 01/10/25 01/11/25 01/11/25 23:59 11:59 23:59 Intake Total 920 / 1825 875 / 1095 220 / 1095 Output Total 1050 / 1900 1000 / 1500 500 / 1500 Balance -130 / -75 -125 / -405 -280 / -405 Intake: IV 230 / 335 125 / 125 Oral 690 / 1490 750 / 970 220 / 970 Output: Urine 1050 / 1900 1000 / 1500 500 / 1500 Other: Urine Color Yellow Yellow Yellow Urine Appearance Clear Clear Clear Urine Odor Normal Normal Stool Size Small Moderate Moderate Stool Characteristics Soft Soft Liquid Liquid Brown Data Completed and Pending Labs on day of discharge: Labs from last 24 hours 01/11/25 07:10 WBC 8.67 RBC 2.81 L Hgb 9.5 L Hct 27.4 L MCV 98 H MCH 33.8 H MCHC 34.7 RDW 14.3 H Plt Count 73 L MPV 10.3 Immature Gran % 0.3 Neutrophils % 64.2 Lymphocytes % 19.5 Monocytes % 10.3 Eosinophils % 5.0 Basophils % 0.7 Nucleated RBC % 0.0 Absolute Neutrophils 5.57 Absolute Lymphocytes 1.69 Absolute Monocytes 0.89 H Absolute Eosinophils 0.43 Absolute Basophils 0.06 RBC Morphology See Below Poikilocytosis 2+ Sodium 131 L Potassium 3.5 Chloride 101 Carbon Dioxide 19.8 L Anion Gap 10.2 BUN 15 Creatinine 1.2 Est GFR (CKD-EPI 2020) 70.10 Glucose 117 H Calcium 9.6 Magnesium 1.5 Ammonia 71 H PFSH All Active Problems (Updated 01/10/25 @ 11:33 by Tessy Perez MD) Housing instability (Acute) Advanced care planning/counseling discussion (Acute) Palliative care encounter (Acute) Alcoholism (Acute) End stage liver disease (Acute) JACKY (acute kidney injury) (Acute) Discharge planning issues (Acute) Hypokalemia (Acute) HTN (hypertension) (Chronic) Alcoholic liver failure (Acute) Fall (Acute) Hepatic encephalopathy (Acute) AMS (altered mental status) (Acute) Medical History (Updated 01/10/25 @ 11:33 by Tessy Perez MD) Asthma Surgical History H/O shoulder surgery Social History Smoking/Tobacco Use Status: Never Smoking risk assessment performed?: Yes Alcohol Intake: former Drug use: Never Substance use type: does not use Housing: apartment Do you feel safe at home: Yes Do you feel safe in your relationship?: Yes Time Spent with Patient Time Spent with Patient: 70-84 minutes4 Time was spent: preparing to see the patient(eg.review tests), ordering medications,tests, procedures, referring, communicating with other health direct care worker, indepentently interpreting results, counseling the patient and care coordination
[2025-01-11 19:27] VITALS: BP 130/85; PULSE 84; RESP 20; TEMP 37; O2SAT 100
[2025-01-11] MEDS: traZODone 50 MG TAB PO (20:44)
[2025-01-12] MEDS: Potassium Chloride 20 MEQ TABCR PO (07:10)
[2025-01-12] MEDS: Spironolactone 50 MG TAB 25 MG PO (07:10)
[2025-01-12] MEDS: Pantoprazole 40 MG TABCR PO (07:11)
[2025-01-12] MEDS: Rifaximin 550 MG TAB PO (07:12)
[2025-01-12] MEDS: Lactulose 20 GM/30 ML CUP PO (07:12)
[2025-01-12] MEDS: Furosemide 20 MG TAB 10 MG PO (07:12)
--- NOTE | 2025-01-12 07:12 | DSE_ITS ---
Date of service: 01/12/25 Time of Service: 07:12 DS: Diagnosis Discharge Diagnosis (1) Hepatic encephalopathy: Status: Acute (2) Alcoholic liver failure: Status: Acute (3) JACKY (acute kidney injury): Status: Acute (4) Fall: Status: Acute (5) HTN (hypertension): Status: Chronic (6) Hypokalemia: Status: Acute (7) Discharge planning issues: Status: Acute Discharge Plan Disposition Patient Disposition: Senior Living Facility(SNF) Condition: Improving Discharge Details Reason For Visit: Fall Admit Date/Time: 01/09/25 10:04 Admit Provider: Jeb Christopher Attending Provider: Jeb Christopher Primary Care Provider: Noman Guerin Hospital Course Hospital Course: * Date of Admission: 01/07/2025 * Date of Discharge: 01/12/2025 Chief Complaint: The patient was admitted after a fall while getting up from the toilet at his son's home. He did not lose consciousness, nor did he hit his head. 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 He was initially disoriented but regained orientation to person, place, and situation by hospital day 2. The patient was started on lactulose, which was increased to three times daily, and high-dose thiamine was administered. Additionally, rifaximin 550 mg BID was started to help manage his hepatic encephalopathy. His potassium levels were repleted, and he was closely monitored for hepatic decompensation and signs of bleeding. Physical therapy was consulted for discharge planning, and the patient was deemed to benefit from short-term [facility] facility care for mobility and rehabilitation. 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 Continue 20 gm TID, reassess after one week. * Spironolactone ? 50 mg daily. * Lasix ? 10 mg daily. * Thiamine ? 100 mg daily. * Magnesium ? 64 mg daily. * Potassium ? 20 mEq daily. * Rifaximin 550 mg twice a day Prescriptions have been sent to [facility] in [facility]. Dr Guerin's office has sent the PA for Rigaximin and it has been approved. Recommend CMP in one week. Physical Exam: * The patient is jaundiced, with icteric eyes and slightly dry oral mucosa. * Full range of motion in the neck. * Respiratory rate is even and unlabored. * Cardiovascular exam shows regular rate and rhythm. * Abdominal exam is unremarkable. * The patient can move all extremities. * Feet are macerated and reddened, with wounds noted. Assessment and Plan: * Hepatic encephalopathy: Continue lactulose, rifaximin, spironolactone, and Lasix. PCP follow-up in one week. * Alcoholic liver failure: Continue supportive care and avoid hepatotoxic drugs. * Fall: Continue fall precautions. SNF recommended by physical therapy for short-term rehabilitation. * Hypokalemia: Continue potassium repletion. Monitor electrolytes and CMP in one week. * Hypertension: Continue home medications. Social History: The patient lives with his son, Jone, in [place], [place], and has another son, Reid, who lives in [place]. He communicates regularly with his mother in [place]. 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 Goals of Care and Advanced Directives: The patient has expressed his wish for comfort measures rather than aggressive treatment if no meaningful improvement in his condition is possible. He was previously seen by the palliative care team at [facility] and had discussed a time- limited trial of CPR, intubation, tube feedings, and dialysis. He remains a full code. Discharge Recommendations: * Follow-up appointments: Hepatology, GI for recommended EGD, primary care, and palliative care. * Physical therapy: Home health services to assist with mobility and assess home safety post SNFadmission. * Social support: Assistance with transportation and long-term disability paperwork. Concerns: The patient's son, Reid, has expressed concern about the discharge destination. Anthony is encouraged to identify an alternative living situation due to concerns regarding his current living situation with his son, Jone. Conclusion: Anthony is being discharged with a comprehensive plan for ongoing management of his hepatic encephalopathy and liver failure. He will also receive support for his mobility and functional status through physical therapy. Follow-up with specialists and dialysis social worker will be crucial to ensuring the patient?s safety and comfort in the next phase of care. The patient is discharged to the [facility]. Home Meds and New Rx's Prescriptions: New lactulose 10 gram/15 mL Solution 20 g PO TID Qty: 473 0RF Rx Instructions: 30 ml three times a day potassium chloride [Klor-Con M20] 20 mEq Tablet,Er Particles/Crystals 20 meq PO DAILY Qty: 30 0RF magnesium chloride [Mag 64] 64 mg Tablet,Delayed Release (Dr/Ec) 64 mg PO DAILY Qty: 30 0RF Xifaxan 550 mg Tablet 550 mg PO BID Qty: 60 0RF thiamine HCl (vitamin B1) 100 mg capsule 100 mg PO DAILY Qty: 30 0RF Continued furosemide 20 mg tablet 10 mg PO QAM trazodone 50 mg tablet 50 mg PO HS spironolactone 50 mg tablet 25 mg PO DAILY pantoprazole 40 mg tablet,delayed release (DR/EC) 40 mg PO DAILY Patient Comments: TAKE ONE TABLET BY MOUTH EVERY DAY ergocalciferol (vitamin D2) 1,250 mcg (50,000 unit) capsule 1,250 mcg PO .weekly Patient Comments: TAKE 1 CAPSULE BY MOUTH ONCE A WEEK FOR 8 DOSES ciprofloxacin HCl 500 mg tablet 500 mg PO DAILY Patient Comments: TAKE ONE TABLET BY MOUTH EVERY MORNING loratadine 10 mg tablet 10 mg PO DAILY PRN (Reason: allergic symptoms) Patient Comments: TAKE ONE TABLET BY MOUTH EVERY DAY Aquaphor Healing 41 % ointment 1 applic topical BID PRN fluticasone furoate-vilanterol [Breo Ellipta] 100-25 mcg/dose blister with device 1 inh inhalation DAILY potassium chloride 20 mEq tablet extended release 20 meq PO BID triamcinolone acetonide 0.1 % ointment 1 applic TOPICAL BID Patient Comments: APPLY TOPICALLY TWO TIMES A DAY albuterol sulfate [Ventolin HFA] 90 mcg/actuation Hfa Aerosol Inhaler 1 puff inhalation Q6H PRN Discontinued lactulose [Constulose] 10 gram/15 mL solution 45 ml PO TID Patient Comments: TAKE 45MLS BY MOUTH THREE TIMES A DAY Discharge Instructions Referrals: GASTROENTEROLOGY,[facility] [OTHER] - (Discussion with office and Dr Corrales - they will call patient with date/time) Noman Guerin MD [Primary Care Provider] - (1-2 weeks post hospitalization; recommend CMP in 1 week; added rifaximin; has been hypokalemic -- added mag and kcl. ) Tessy Perez MD [ [facility] STAFF PHYSICIAN] - (1 month post hospitalization; seen while hospitalized. ) Activity:: Activity as Tolerated Equipment/Supplies:: No Equipment Needed Diet:: As Tolerated Discharge Orders Discharge Orders: Discharge Order (Routine); Ordered 01/12/25 Ordered By: Anabela Shi Other Ambulatory Orders: Comprehensive Metabolic Panel (Routine) Timeframe: 1 Week Facility: [facility] - Location: Laboratory Outpatient - [facility] Ordered By: Anabela Shi DS: Summary Time Spent with Patient providing and/or coordinating discharge services: Greater than 30 minutes Status at Discharge Functional status at discharge: uses cane/walker Overall status at discharge: patient is progressing back to baseline Mental Status: mental status grossly normal Speech and Movement: speech and movement normal Mood: congruent mood Affect: normal affect Quality:SDOH Health Related Social Needs: Health related social needs housing instability, house d, with risk of homelessness (Z59.811), food insecurity (Z59.41), problems with daily activities (Z73.9), feeling lonely/isolated (Z60.8) Exam Narrative Exam Narrative: Reviewed vital signs and nurses notes. Constitutional: Alert and oriented x3. Appears older than stated age. Normal b mansoor habitus. Head: Normocephalic, no trauma. Face is thin Eyes: Pupils PERRL, EOM's intact. Eyelids symmetrical without lesions, discharge, or swelling. Chest: RRR, Normal S1, S2, distal pulses intact. Resp: Lungs clear to auscultation bilaterally, no wheezes, rales, or rhonchi. Abdomen: Soft, distended, bowel sounds present, ascites present Musculoskeletal: Weakness noted equally to all four extremities. Skin: No suspicious rashes or lesions. Capillary refill less than 2 sec. Neurologic: Cranial nerves II-XII intact. Alert and oriented x 3. Motor: No deficits noted. Sensory: Intact bilaterally all 4 extremities. Hematologic/Lymphatic: No ecchymosis, no lymphadenopathy. Psych Mental Status: mental status grossly normal Speech and Movement: speech and movement normal Mood: congruent mood Affect: normal affect DS: Data Vitals/I&O Vitals and I&O: Vital Signs Temperature 37.0 C 01/11/25 19:27 Temperature Source Tympanic 01/11/25 19:27 Pulse 84 01/11/25 19:27 Pulse 74 01/07/25 22:01 Respiratory Rate 20 01/11/25 19:27 Respiratory Effort Normal 01/07/25 22:36 Respiratory Depth Normal 01/07/25 22:36 Respiratory Pattern Normal 01/07/25 22:36 Blood Pressure 130/85 01/11/25 19:27 Blood Pressure Mean 98 01/07/25 22:01 Pulse Oximetry 100 01/11/25 19:27 Oxygen Delivery Method Room Air 01/11/25 19:27 Oxygen Flow Rate 0 01/11/25 19:27 Pain Level 0 01/11/25 19:27 Intake & Output 01/11/25 01/11/25 01/12/25 11:59 23:59 11:59 Intake Total 875 / 1095 220 / 1095 Output Total 1000 / 1900 900 / 1900 400 / 400 Balance -125 / -805 -680 / -805 -380 / -380 Intake: IV 125 / 125 Oral 750 / 970 220 / 970 Output: Urine 1000 / 1900 900 / 1900 400 / 400 Other: Urine Color Yellow Yellow Light Kristina Urine Appearance Clear Clear Clear Urine Odor Normal Normal Strong Comment Patient voided ind. in the toilet. Stool Size Moderate Small Small Stool Characteristics Soft Liquid Liquid Liquid Brown Data Completed and Pending Labs on day of discharge: Labs from last 24 hours 01/12/25 01/11/25 05:35 07:10 WBC Pending 8.67 RBC Pending 2.81 L Hgb Pending 9.5 L Hct Pending 27.4 L MCV Pending 98 H MCH Pending 33.8 H MCHC Pending 34.7 RDW Pending 14.3 H Plt Count Pending 73 L MPV Pending 10.3 Immature Gran % Pending 0.3 Neutrophils % Pending 64.2 Lymphocytes % Pending 19.5 Monocytes % Pending 10.3 Eosinophils % Pending 5.0 Basophils % Pending 0.7 Nucleated RBC % 0.0 Absolute Neutrophils Pending 5.57 Absolute Lymphocytes Pending 1.69 Absolute Monocytes Pending 0.89 H Absolute Eosinophils Pending 0.43 Absolute Basophils Pending 0.06 RBC Morphology See Below Poikilocytosis 2+ Sodium Pending 131 L Potassium Pending 3.5 Chloride Pending 101 Carbon Dioxide Pending 19.8 L Anion Gap Pending 10.2 BUN Pending 15 Creatinine Pending 1.2 Est GFR (CKD-EPI 2020) Pending 70.10 Glucose Pending 117 H Calcium Pending 9.6 Magnesium Pending 1.5 Ammonia Pending 71 H PFSH All Active Problems (Updated 01/10/25 @ 11:33 by Tessy Perez MD) Housing instability (Acute) Advanced care planning/counseling discussion (Acute) Palliative care encounter (Acute) Alcoholism (Acute) End stage liver disease (Acute) JACKY (acute kidney injury) (Acute) Discharge planning issues (Acute) Hypokalemia (Acute) HTN (hypertension) (Chronic) Alcoholic liver failure (Acute) Fall (Acute) Hepatic encephalopathy (Acute) AMS (altered mental status) (Acute) Medical History (Updated 01/10/25 @ 11:33 by Tessy Perez MD) Asthma Surgical History H/O shoulder surgery Social History Smoking/Tobacco Use Status: Never Smoking risk assessment performed?: Yes Alcohol Intake: former Drug use: Never Substance use type: does not use Housing: apartment Do you feel safe at home: Yes Do you feel safe in your relationship?: Yes Time Spent with Patient Time Spent with Patient: 45-69 minutes Time was spent: preparing to see the patient(eg.review tests), ordering medications,tests, procedures, referring, communicating with other health eye care professional, indepentently interpreting results, counseling the patient and care coordination
[2025-01-12 07:44] VITALS: BP 127/83; PULSE 83; RESP 12; TEMP 36.5; O2SAT 100
[2025-01-12] MEDS: Magnesium Chloride 64 MG TABCR PO (08:10)
[2025-01-12] MEDS: Budesonide/Formoterol 80/4.5 6.9 GM 60 PUFF INH IH (08:19)
--- NOTE | 2025-01-12 09:54 | PDOC.CMDIS ---
Date of service: 01/12/25 Time of Service: 09:54 LACE Index Scoring Tool Questions: Length of Stay (in days): 3 Was the patient admitted via the E.D.?: Yes Comorbidities: with End Organ Damage and Liver or Renal Disease E.D. Visits: 3 Answers: Total Score: 14 Risk of Readmission: High Risk Care Management Discharge Plan Reason for Hospitalization: Fall Discharge Plan: Anthony will discharge to the [facility] for STR at 10:15 and a plan to follow up with community providers after discharge, and [facility] with Dr. Lazaro, 01/27/25 at 10:00, the [facility] has been notified. He will be transported by [facility] (private car). Anthony would benefit from addition community support and resources and was referred to GIOVANY and DHIRAJ (who will call him 01/13/25) during this admission. Patient/Family Education Needs: Review discharge instructions and limitations, discussion of self care needs including ask me three. Services Needed at Discharge: Custodial Facility SDOH Health Related Social Needs: Health related social needs housing instability, housed, with risk of homelessness (Z59.811), food insecurity (Z59.41), problems with daily activities (Z73.9), feeling lonely/isolated (Z60.8) Care Management Referrals: DHIRAJ
== END 2025-01-12 10:19 | disposition skilled nursing facility (03) | DRG 442 ==
LOC: ER 21:48 → MS 22:25
PROVIDERS: Nurse Practitioner Acute Care; Nurse Practitioner Family; Admitting Provider Student in an Organized Health Care Education/Training Program; Emergency Provider Physician Assistant; PCP Family Medicine; Responsible Provider Nurse Practitioner Acute Care; Visit Provider Student in an Organized Health Care Education/Training Program
DX: K76.82 Hepatic encephalopathy; N17.9 Acute kidney failure, unspecified; Z59.811 Housing instability, housed, with risk of homelessness; K70.40 Alcoholic hepatic failure without coma; I10 Essential (primary) hypertension; W19.XXXA Unspecified fall, initial encounter; E87.6 Hypokalemia; R29.6 Repeated falls; R53.1 Weakness; D69.59 Other secondary thrombocytopenia; J45.909 Unspecified asthma, uncomplicated; K70.31 Alcoholic cirrhosis of liver with ascites; G25.2 Other specified forms of tremor; G62.9 Polyneuropathy, unspecified; F10.91 Alcohol use, unspecified, in remission; Z59.41 Food insecurity; Z73.9 Problem related to life management difficulty, unspecified; Z60.8 Other problems related to social environment
CPT/HCPCS: 00123; 36415; 36416; 80048; 80053; 80076; 82962; 83690; 85027; 87637; 93005; 94640; 96361; 96365; 96366; 96367; 97162; 97530; 99285; 70450; 72125; 80320; 81003; 81015; 82140; 83605; 83735; 84443; 85025; 85610; 93010; 94664; 99223; 99232; 99233; 99239; G0378; J3411; J3475; J3480

== ENCOUNTER 2025-01-16 17:12 | Outpatient (REF) | payer MEDICAID, SELFPAY ==
[2025-01-16 17:29] LABS: Abs Immature Grans 0.03 10^3/uL (0.0-0.06); Absolute Basophil Count 0.04 10^3/uL (0.0-0.2); Absolute Eosinophil Count 0.51 10^3/uL (0.0-0.7); Absolute Lymphocyte Count 0.97 10^3/uL (1.2-3.4); Absolute Monocyte Count 0.67 10^3/uL (0.1-0.8); Absolute Neutrophil Count 4.83 10^3/uL (1.2-6.7); Basophils % 0.6 %; Eosinophils % 7.2 %; HCT 26.3 % (40.0-50.0); HGB 8.9 g/dL (13.5-17.5); Immature Grans % 0.4 %; Lymphocytes % 13.8 %; MCH 33.7 pg (27.0-33.0); MCHC 33.8 % (32.0-36.0); MCV 100 fL (80-95); MPV 10.6 fL (8.0-11.0); Monocytes % 9.5 %; Neutrophils % 68.5 %; RBC 2.64 10^6/uL (4.36-5.78); RDW 14.5 % (11.8-14.1); RDW-SD 52.9 fL; WBC 7.05 10^3/uL (4.4-10.8)
[2025-01-16 17:37] LABS: Iron 81 ug/dL (65-175); Total Iron Binding Capacity 120 ug/dL (250-450); Transferrin Sat 68 % (20-55)
[2025-01-16 17:45] LABS: Hemoglobin A1C 4.5 % (<5.7)
[2025-01-16 18:08] LABS: Diff Comment PLT Morph Reviewed
[2025-01-16 18:09] LABS: Platelet Count 73 10^3/uL (130-400); RBC Morphology Normal
[2025-01-16 18:19] LABS: ALT 40 U/L (16-63); AST 38 U/L (15-37); Albumin 2.6 g/dL (3.4-5.0); Alkaline Phosphatase 134 U/L (46-116); BUN 11 mg/dL (7-18); Bilirubin, Total 3.6 mg/dL (0.2-1.0); CREATININE 0.9 mg/dL (0.70-1.30); Calcium 9.3 mg/dL (8.5-10.1); Chloride 103 mmol/L (98-107); Ferritin 1360 ng/mL (26-388); Folate 15.6 ng/mL (8.6-20.0); Glucose 178 mg/dL (74-106); Magnesium 1.7 mg/dL (1.8-2.4); Potassium 3.6 mmol/L (3.5-5.1); Sodium 132 mmol/L (136-145); TSH (W/Ref FT4) 0.95 uIU/mL (0.36-3.74); Total Protein 5.2 g/dL (6.4-8.2); Vitamin B12 1352 pg/mL (193-986); Vitamin D 25 Total 89 ng/mL (30-100)
[2025-01-16 18:48] LABS: NT-proBNP 140 pg/mL (<300)
== END 2025-01-16 17:13 | disposition home or self-care (01) ==
LOC: LBN 17:12
PROVIDERS: PCP Family Medicine; Visit Provider Nurse Practitioner Gerontology
DX: E87.8 Other disorders of electrolyte and fluid balance, not elsewhere classified (principal); I50.22 Chronic systolic (congestive) heart failure; E83.42 Hypomagnesemia; R73.03 Prediabetes; D52.9 Folate deficiency anemia, unspecified; D50.9 Iron deficiency anemia, unspecified; R53.83 Other fatigue; E55.9 Vitamin D deficiency, unspecified; D63.1 Anemia in chronic kidney disease
CPT/HCPCS: 80053; 82306; 82607; 82728; 82746; 83036; 83540; 83550; 83735; 83880; 84443; 85025

== ENCOUNTER 2025-01-23 17:59 | Outpatient (REF) | payer MEDICAID, SELFPAY ==
[2025-01-23 17:54] LABS: Abs Immature Grans 0.03 10^3/uL (0.0-0.06); Absolute Basophil Count 0.03 10^3/uL (0.0-0.2); Absolute Eosinophil Count 0.57 10^3/uL (0.0-0.7); Absolute Lymphocyte Count 1.01 10^3/uL (1.2-3.4); Absolute Neutrophil Count 4.86 10^3/uL (1.2-6.7); Basophils % 0.4 %; Eosinophils % 7.9 %; HCT 27.5 % (40.0-50.0); HGB 9.4 g/dL (13.5-17.5); Immature Grans % 0.4 %; MCH 33.5 pg (27.0-33.0); MCHC 34.2 % (32.0-36.0); MCV 98 fL (80-95); MPV 9.7 fL (8.0-11.0); Monocytes % 9.7 %; Neutrophils % 67.6 %; RBC 2.81 10^6/uL (4.36-5.78); RDW 14.7 % (11.8-14.1); RDW-SD 53.3 fL
[2025-01-23 18:02] LABS: Anion Gap 11.5 mmol/L (3-11); BUN 8 mg/dL (7-18); CO2 17.5 mmol/L (21.0-32.0); CREATININE 1.1 mg/dL (0.70-1.30); Chloride 105 mmol/L (98-107); Estimated GFR 77.81 (mL/min/1.73m2); Glucose 140 mg/dL (74-106); Potassium 3.1 mmol/L (3.5-5.1); Sodium 134 mmol/L (136-145)
[2025-01-23 18:13] LABS: Diff Comment PLT Morph Reviewed; Platelet Count 77 10^3/uL (130-400); RBC Morphology Normal
== END 2025-01-23 18:00 | disposition home or self-care (01) ==
LOC: LBN 17:59
PROVIDERS: PCP Family Medicine; Visit Provider Nurse Practitioner Gerontology
DX: K76.82 Hepatic encephalopathy (principal); K70.40 Alcoholic hepatic failure without coma
CPT/HCPCS: 80048; 85025

== ENCOUNTER 2025-02-02 20:48 | Outpatient (REF) | payer MEDICAID, SELFPAY ==
[2025-02-02 19:45] LABS: Abs Immature Grans 0.05 10^3/uL (0.0-0.06); Absolute Basophil Count 0.03 10^3/uL (0.0-0.2); Absolute Eosinophil Count 0.83 10^3/uL (0.0-0.7); Absolute Monocyte Count 1.33 10^3/uL (0.1-0.8); Absolute Neutrophil Count 5.98 10^3/uL (1.2-6.7); Basophils % 0.3 %; Eosinophils % 8.9 %; HCT 28.3 % (40.0-50.0); HGB 9.8 g/dL (13.5-17.5); Immature Grans % 0.5 %; Lymphocytes % 11.8 %; MCH 33.2 pg (27.0-33.0); MCHC 34.6 % (32.0-36.0); MCV 96 fL (80-95); MPV 10.5 fL (8.0-11.0); Monocytes % 14.3 %; Neutrophils % 64.2 %; RBC 2.95 10^6/uL (4.36-5.78); RDW 15.1 % (11.8-14.1); RDW-SD 53.1 fL; WBC 9.32 10^3/uL (4.4-10.8)
[2025-02-02 20:01] LABS: Anion Gap 11.6 mmol/L (3-11); BUN 15 mg/dL (7-18); CO2 20.4 mmol/L (21.0-32.0); Chloride 97 mmol/L (98-107); Diff Comment PLT Morph Reviewed; Estimated GFR 87.24 (mL/min/1.73m2); Glucose 128 mg/dL (74-106); Magnesium 1.6 mg/dL (1.8-2.4); Platelet Count 87 10^3/uL (130-400); RBC Morphology Normal; Sodium 129 mmol/L (136-145)
== END 2025-02-02 20:49 | disposition home or self-care (01) ==
LOC: LBN 20:48
PROVIDERS: PCP Family Medicine; Visit Provider Nurse Practitioner Gerontology
DX: E87.8 Other disorders of electrolyte and fluid balance, not elsewhere classified (principal); E83.42 Hypomagnesemia; D63.1 Anemia in chronic kidney disease
CPT/HCPCS: 80048; 83735; 85025

== ENCOUNTER 2025-02-06 19:05 | Outpatient (REF) | payer MEDICAID, SELFPAY ==
[2025-02-06 20:33] LABS: Anion Gap 12.5 mmol/L (3-11); BUN 14 mg/dL (7-18); CO2 20.5 mmol/L (21.0-32.0); CREATININE 1.1 mg/dL (0.70-1.30); Calcium 8.7 mg/dL (8.5-10.1); Chloride 95 mmol/L (98-107); Estimated GFR 77.81 (mL/min/1.73m2); Glucose 124 mg/dL (74-106); Potassium 3.2 mmol/L (3.5-5.1); Sodium 128 mmol/L (136-145)
== END 2025-02-06 19:06 | disposition home or self-care (01) ==
LOC: LBN 19:05
PROVIDERS: PCP Family Medicine; Visit Provider Nurse Practitioner Gerontology
DX: E87.8 Other disorders of electrolyte and fluid balance, not elsewhere classified (principal)
CPT/HCPCS: 80048

== ENCOUNTER 2025-02-07 19:49 | Outpatient (REF) | payer MEDICAID, SELFPAY ==
[2025-02-04 11:31] LABS: Anion Gap 9.6 mmol/L (3-11); BUN 15 mg/dL (7-18); CO2 19.4 mmol/L (21.0-32.0); CREATININE 1.1 mg/dL (0.70-1.30); Calcium 8.6 mg/dL (8.5-10.1); Chloride 96 mmol/L (98-107); Estimated GFR 77.81 (mL/min/1.73m2); Glucose 138 mg/dL (74-106); Magnesium 1.6 mg/dL (1.8-2.4); Potassium 4.1 mmol/L (3.5-5.1); Sodium 125 mmol/L (136-145)
== END 2025-02-07 19:50 | disposition home or self-care (01) ==
LOC: LBN 19:49
PROVIDERS: PCP Family Medicine; Visit Provider Nurse Practitioner Gerontology
DX: E87.8 Other disorders of electrolyte and fluid balance, not elsewhere classified (principal); E83.42 Hypomagnesemia; D63.1 Anemia in chronic kidney disease
CPT/HCPCS: 80048; 83735

== ENCOUNTER 2025-02-09 17:32 | Outpatient (REF) | payer MEDICAID, SELFPAY ==
[2025-02-09 18:01] LABS: Abs Immature Grans 0.02 10^3/uL (0.0-0.06); Absolute Basophil Count 0.04 10^3/uL (0.0-0.2); Absolute Lymphocyte Count 0.79 10^3/uL (1.2-3.4); Absolute Monocyte Count 1.03 10^3/uL (0.1-0.8); Absolute Neutrophil Count 4.74 10^3/uL (1.2-6.7); Basophils % 0.5 %; HCT 25.1 % (40.0-50.0); HGB 8.9 g/dL (13.5-17.5); Immature Grans % 0.3 %; Lymphocytes % 10.5 %; MCH 33.7 pg (27.0-33.0); MCHC 35.5 % (32.0-36.0); MCV 95 fL (80-95); MPV 10.1 fL (8.0-11.0); Monocytes % 13.7 %; Platelet Count 102 10^3/uL (130-400); RBC 2.64 10^6/uL (4.36-5.78); RDW 15.6 % (11.8-14.1); RDW-SD 54.2 fL; WBC 7.52 10^3/uL (4.4-10.8)
[2025-02-09 18:05] LABS: Anion Gap 9.5 mmol/L (3-11); BUN 12 mg/dL (7-18); CO2 20.5 mmol/L (21.0-32.0); CREATININE 1.2 mg/dL (0.70-1.30); Calcium 9.2 mg/dL (8.5-10.1); Chloride 102 mmol/L (98-107); Glucose 126 mg/dL (74-106); Magnesium 1.5 mg/dL (1.8-2.4); Sodium 132 mmol/L (136-145)
== END 2025-02-09 17:33 | disposition home or self-care (01) ==
LOC: LBN 17:32
PROVIDERS: PCP Family Medicine; Visit Provider Nurse Practitioner Gerontology
DX: E87.6 Hypokalemia (principal); E83.42 Hypomagnesemia; D50.0 Iron deficiency anemia secondary to blood loss (chronic)
CPT/HCPCS: 80048; 83735; 85025

== ENCOUNTER 2025-02-13 19:06 | Outpatient (REF) | payer MEDICAID, SELFPAY ==
[2025-02-13 18:22] LABS: Anion Gap 7.5 mmol/L (3-11); BUN 11 mg/dL (7-18); CO2 22.5 mmol/L (21.0-32.0); CREATININE 1.1 mg/dL (0.70-1.30); Chloride 102 mmol/L (98-107); Estimated GFR 77.81 (mL/min/1.73m2); Glucose 141 mg/dL (74-106); Potassium 3.9 mmol/L (3.5-5.1); Sodium 132 mmol/L (136-145)
== END 2025-02-13 19:07 | disposition home or self-care (01) ==
LOC: LBN 19:06
PROVIDERS: PCP Family Medicine; Visit Provider Nurse Practitioner Gerontology
DX: E87.6 Hypokalemia (principal)
CPT/HCPCS: 80048

== ENCOUNTER 2025-02-17 19:11 | Outpatient (REF) | payer MEDICAID, SELFPAY ==
[2025-02-17 15:30] LABS: Abs Immature Grans 0.04 10^3/uL (0.0-0.06); Absolute Basophil Count 0.03 10^3/uL (0.0-0.2); Absolute Eosinophil Count 0.67 10^3/uL (0.0-0.7); Absolute Lymphocyte Count 1.08 10^3/uL (1.2-3.4); Absolute Monocyte Count 1.13 10^3/uL (0.1-0.8); Absolute Neutrophil Count 5.68 10^3/uL (1.2-6.7); Basophils % 0.3 %; Eosinophils % 7.8 %; HCT 25.2 % (40.0-50.0); HGB 8.7 g/dL (13.5-17.5); Immature Grans % 0.5 %; Lymphocytes % 12.5 %; MCH 32.8 pg (27.0-33.0); MCHC 34.5 % (32.0-36.0); MCV 95 fL (80-95); MPV 10.6 fL (8.0-11.0); Monocytes % 13.1 %; Neutrophils % 65.8 %; RBC 2.65 10^6/uL (4.36-5.78); RDW 15.8 % (11.8-14.1); RDW-SD 54.6 fL; WBC 8.63 10^3/uL (4.4-10.8)
[2025-02-17 15:42] LABS: Anion Gap 9.1 mmol/L (3-11); BUN 13 mg/dL (7-18); CO2 20.9 mmol/L (21.0-32.0); CREATININE 1.3 mg/dL (0.70-1.30); Calcium 9.5 mg/dL (8.5-10.1); Chloride 103 mmol/L (98-107); Estimated GFR 63.68 (mL/min/1.73m2); Glucose 136 mg/dL (74-106); Sodium 133 mmol/L (136-145)
[2025-02-17 15:48] LABS: Diff Comment RBC Morph Reviewed; Hypochromasia 1+; Platelet Count 89 10^3/uL (130-400); Poikilocytes 1+
== END 2025-02-17 19:12 | disposition home or self-care (01) ==
LOC: LBN 19:11
PROVIDERS: PCP Family Medicine; Visit Provider Nurse Practitioner Gerontology
DX: E87.8 Other disorders of electrolyte and fluid balance, not elsewhere classified (principal); D63.1 Anemia in chronic kidney disease
CPT/HCPCS: 80048; 85025

== ENCOUNTER 2025-02-20 18:17 | Outpatient (REF) | payer MEDICAID, SELFPAY ==
[2025-02-20 19:46] LABS: Abs Immature Grans 0.03 10^3/uL (0.0-0.06); Absolute Basophil Count 0.03 10^3/uL (0.0-0.2); Absolute Eosinophil Count 0.57 10^3/uL (0.0-0.7); Absolute Lymphocyte Count 0.83 10^3/uL (1.2-3.4); Absolute Neutrophil Count 5.63 10^3/uL (1.2-6.7); Basophils % 0.4 %; HCT 25.4 % (40.0-50.0); HGB 8.7 g/dL (13.5-17.5); Immature Grans % 0.4 %; Lymphocytes % 10.3 %; MCH 33.1 pg (27.0-33.0); MCHC 34.3 % (32.0-36.0); MCV 97 fL (80-95); MPV 10.4 fL (8.0-11.0); Monocytes % 12.4 %; Neutrophils % 69.5 %; RBC 2.63 10^6/uL (4.36-5.78); RDW 16.2 % (11.8-14.1); RDW-SD 57.2 fL; WBC 8.09 10^3/uL (4.4-10.8)
[2025-02-20 19:57] LABS: Anion Gap 10.1 mmol/L (3-11); BUN 12 mg/dL (7-18); CO2 20.9 mmol/L (21.0-32.0); Calcium 9.3 mg/dL (8.5-10.1); Chloride 99 mmol/L (98-107); Estimated GFR 87.24 (mL/min/1.73m2); Glucose 125 mg/dL (74-106); Magnesium 1.6 mg/dL (1.8-2.4); Potassium 3.9 mmol/L (3.5-5.1); Sodium 130 mmol/L (136-145)
[2025-02-20 20:04] LABS: Burr Cells (echinocyte) 2+; Diff Comment PLT Morph Reviewed; Platelet Count 92 10^3/uL (130-400)
== END 2025-02-20 18:18 | disposition home or self-care (01) ==
LOC: LBN 18:17
PROVIDERS: PCP Family Medicine; Visit Provider Nurse Practitioner Gerontology
DX: E87.8 Other disorders of electrolyte and fluid balance, not elsewhere classified (principal); E83.42 Hypomagnesemia; D63.1 Anemia in chronic kidney disease
CPT/HCPCS: 80048; 83735; 85025

== ENCOUNTER 2025-03-01 17:54 | Outpatient (REF) | payer MEDICAID, SELFPAY ==
[2025-03-01 18:13] LABS: Abs Immature Grans 0.02 10^3/uL (0.0-0.06); Absolute Basophil Count 0.04 10^3/uL (0.0-0.2); Absolute Eosinophil Count 1.04 10^3/uL (0.0-0.7); Absolute Lymphocyte Count 0.97 10^3/uL (1.2-3.4); Absolute Monocyte Count 0.96 10^3/uL (0.1-0.8); Basophils % 0.5 %; Eosinophils % 14.2 %; HCT 22.6 % (40.0-50.0); HGB 7.6 g/dL (13.5-17.5); Immature Grans % 0.3 %; Lymphocytes % 13.2 %; MCH 32.6 pg (27.0-33.0); MCHC 33.6 % (32.0-36.0); MCV 97 fL (80-95); MPV 10.6 fL (8.0-11.0); Monocytes % 13.1 %; Neutrophils % 58.7 %; RBC 2.33 10^6/uL (4.36-5.78); RDW 16.6 % (11.8-14.1); RDW-SD 58.9 fL; WBC 7.33 10^3/uL (4.4-10.8)
[2025-03-01 18:16] LABS: Anion Gap 5.8 mmol/L (3-11); BUN 12 mg/dL (7-18); CO2 24.2 mmol/L (21.0-32.0); Calcium 8.6 mg/dL (8.5-10.1); Chloride 100 mmol/L (98-107); Estimated GFR 87.24 (mL/min/1.73m2); Glucose 147 mg/dL (74-106); Magnesium 1.4 mg/dL (1.8-2.4); Potassium 3.7 mmol/L (3.5-5.1); Sodium 130 mmol/L (136-145)
[2025-03-01 18:25] LABS: Hypochromasia 1+
[2025-03-01 18:26] LABS: Diff Comment PLT Morph Reviewed; Platelet Count 80 10^3/uL (130-400)
== END 2025-03-01 17:55 | disposition home or self-care (01) ==
LOC: LBN 17:54
PROVIDERS: PCP Family Medicine; Visit Provider Nurse Practitioner Gerontology
DX: E87.6 Hypokalemia (principal); E83.42 Hypomagnesemia; D63.1 Anemia in chronic kidney disease
CPT/HCPCS: 80048; 83735; 85025

== ENCOUNTER 2025-03-03 17:44 | Emergency (ER) | payer MEDICAID, SELFPAY ==
[2025-03-03] VITALS (21 sets, daily range): BP systolic 102–130; BP diastolic 47–72; PULSE 84–94; RESP 20; TEMP 37.1; O2SAT 96–100
--- NOTE | 2025-03-03 18:24 | ED.GENADUL_ITS ---
Discharge Plan Disposition Patient Disposition[facility] Condition: Stable Discharge Details Clinical Impression: End stage liver disease, Ascites, Nausea & vomiting Primary Care Provider: Noman Guerin ED Provider: Nas Pham Home Meds and New Rx's Prescriptions: New ondansetron 4 mg tablet,disintegrating 4 mg PO Q8H PRN (Reason: nausea and vomiting) Qty: 30 0RF Continued lactulose 10 gram/15 mL solution 20 g PO QID Rx Instructions: 30 ml three times a day furosemide 20 mg tablet 60 mg PO QAM trazodone 50 mg tablet 50 mg PO HS pantoprazole 40 mg tablet,delayed release (DR/EC) 40 mg PO DAILY Patient Comments: TAKE ONE TABLET BY MOUTH EVERY DAY ergocalciferol (vitamin D2) 1,250 mcg (50,000 unit) capsule 1,250 mcg PO .weekly Patient Comments: TAKE 1 CAPSULE BY MOUTH ONCE A WEEK FOR 8 DOSES ciprofloxacin HCl 500 mg tablet 500 mg PO DAILY Patient Comments: TAKE ONE TABLET BY MOUTH EVERY MORNING loratadine 10 mg tablet 10 mg PO DAILY PRN (Reason: allergic symptoms) Patient Comments: TAKE ONE TABLET BY MOUTH EVERY DAY Aquaphor Healing 41 % ointment 1 applic topical BID PRN fluticasone furoate-vilanterol [Breo Ellipta] 100-25 mcg/dose blister with device 1 inh inhalation DAILY potassium chloride 20 mEq tablet extended release 20 meq PO BID triamcinolone acetonide 0.1 % ointment 1 applic TOPICAL BID Patient Comments: APPLY TOPICALLY TWO TIMES A DAY potassium chloride [Klor-Con M20] 20 mEq Tablet,Er Particles/Crystals 20 meq PO DAILY Qty: 30 0RF magnesium chloride [Mag 64] 64 mg Tablet,Delayed Release (Dr/Ec) 64 mg PO DAILY Qty: 30 0RF Xifaxan 550 mg Tablet 550 mg PO BID Qty: 60 0RF thiamine HCl (vitamin B1) 100 mg capsule 100 mg PO DAILY Qty: 30 0RF spironolactone 50 mg tablet 150 mg PO DAILY albuterol sulfate [Ventolin HFA] 90 mcg/actuation Hfa Aerosol Inhaler 1 puff inhalation Q6H PRN Discharge Instructions Additional Instructions: Your blood work did not show any significant changes from baseline urine follow- up with your primary care provider and trading analyst. If you feel more ill or new symptoms such as high fevers return to the emergency department for reevaluation. HPI General Mode of arrival: EMS . Date/Time Provider Initiated Documentation: 03/03/25 17:56 . Limitations to Documentation: no limitations . Information obtained by: patient . History of Present Illness 59 year old M presents to the emergency department with the chief complaint of n/v, described as moderate, Patient started experiencing this day(s) (14) and it has been intermittent. No relieving factors improve symptom(s), No exacerbating factors reported . Patient notes denies fever/chills. Patient did receive the following treatments prior to arrival, none Related Data Home Medications ?Medication ?Instructions ?Recorded ?Confirmed albuterol sulfate 90 mcg/actuation 1 puff inhalation Q6H PRN 12/28/18 02/15/25 aerosol inhaler (Ventolin HFA) pantoprazole 40 mg tablet,delayed 40 mg PO DAILY 01/07/25 02/15/25 release trazodone 50 mg tablet 50 mg PO HS 01/07/25 02/15/25 ciprofloxacin HCl 500 mg tablet 500 mg PO DAILY 01/08/25 02/15/25 ergocalciferol (vitamin D2) 1,250 1,250 mcg PO .weekly 01/08/25 02/15/25 mcg (50,000 unit) capsule fluticasone furoate 100 1 inh inhalation DAILY 01/08/25 02/15/25 mcg-vilanterol 25 mcg/dose inhalation powder (Breo Ellipta) loratadine 10 mg tablet 10 mg PO DAILY PRN allergic 01/08/25 02/15/25 symptoms potassium chloride 20 mEq 20 meq PO BID 01/08/25 02/15/25 tablet,extended release triamcinolone acetonide 0.1 % 1 applic topical BID 01/08/25 02/15/25 topical ointment white petrolatum 41 % topical 1 applic topical BID PRN 01/08/25 02/15/25 ointment (Aquaphor Healing) magnesium chloride 64 mg 64 mg PO DAILY #30 tabs 01/11/25 02/15/25 (magnesium chloride) tablet,delayed release (Mag 64) potassium chloride 20 mEq 20 meq PO DAILY #30 tabs 01/11/25 02/15/25 tablet,extended release(part/cryst) (Klor-Con M) rifaximin 550 mg tablet (Xifaxan) 550 mg PO BID #60 tabs 01/11/25 02/15/25 thiamine HCl (vitamin B1) 100 mg 100 mg PO DAILY #30 caps 01/11/25 02/15/25 capsule furosemide 20 mg tablet 60 mg PO QAM 02/15/25 02/15/25 lactulose 10 gram/15 mL oral 20 g PO QID 02/15/25 solution spironolactone 50 mg tablet 150 mg PO DAILY 02/15/25 02/15/25 ondansetron 4 mg disintegrating 4 mg PO Q8H PRN nausea and 03/03/25 tablet vomiting #30 tabs Previous Rx's ?Medication ?Instructions ?Recorded magnesium chloride 64 mg 64 mg PO DAILY #30 tabs 01/11/25 (magnesium chloride) tablet,delayed release (Mag 64) potassium chloride 20 mEq 20 meq PO DAILY #30 tabs 01/11/25 tablet,extended release(part/cryst) (Klor-Con M) rifaximin 550 mg tablet (Xifaxan) 550 mg PO BID #60 tabs 01/11/25 thiamine HCl (vitamin B1) 100 mg 100 mg PO DAILY #30 caps 01/11/25 capsule ondansetron 4 mg disintegrating 4 mg PO Q8H PRN nausea and 03/03/25 tablet vomiting #30 tabs Allergies Allergy/AdvReac Type Severity Reaction Status Date / Time ceftriaxone Allergy Intermediate Skin Rash Verified 01/07/25 18:08 lisinopril Allergy Unknown unknown Unverified 01/07/25 18:08 General Stated Complaint: Abd Prob ADRIÁN: 3 Review of Systems All systems reviewed & are unremarkable except as noted in HPI and below Constitutional Constitutional: Denies chills, Denies fever(s) and Denies weakness Cardiovascular Cardiovascular: Denies chest pain and Denies dyspnea Respiratory Respiratory: Reports cough and Denies dyspnea Gastrointestinal Gastrointestinal: Denies abdominal pain, Reports nausea and Reports vomiting Neurologic Neurologic: Denies weakness Psychiatric Psychiatric: Denies depression Exam Const General: no acute distress Orientation: alert HENNM Head: normal to inspection Ears: external ears normal General nose exam: external nose normal Mouth: moist mucous membranes Eyes General: appearance normal, both eyes and all related structures Neck Neck: normal visual inspection Resp Effort & Inspection: normal respiratory effort and able to speak in complete sentences Cardio Rate: regular rate GI Palpation: nontender and ascites Skin General skin exam: no rashes or lesions noted Neuro General: patient alert and patient oriented x3 Extrem General: normal to inspection Psych Mental Status: mental status grossly normal Course Vital Signs Vital signs: Vital Signs Temperature 37.1 C 03/03/25 17:46 Pulse 88 03/03/25 17:46 Respiratory Rate 20 03/03/25 17:46 Blood Pressure 130/72 03/03/25 17:46 Pulse Oximetry 98 03/03/25 17:46 Temperature 37.1 C 03/03/25 17:46 Temperature Source Tympanic 03/03/25 17:46 Pulse 88 03/03/25 17:46 Respiratory Rate 20 03/03/25 17:46 Blood Pressure 130/72 03/03/25 17:46 Blood Pressure Position Sitting 03/03/25 17:46 Pulse Oximetry 98 03/03/25 17:46 Oxygen Delivery Method Room Air 03/03/25 17:46 Oxygen Flow Rate 0 03/03/25 17:46 Procedure Paracentesis Date of Procedure: 03/03/25 Time of procedure: 19:49 Indication(s)Procedure: Ascites Patient Consented: Written Standard Time Out Performed: Yes Local Anesthetic: Lidocaine 2% Amount of anesthetic used(mL): 5 Sterility: Sterile Preparation: Hand hygiene, Surgical cap, Surgical Mask, Sterile Gloves, Sterile Drape/Sheet, Chlohexidine and 11 blade Needle Type: 18 gauge Needle Insertion Location: Left paracolic gutter Number of Attempts(See previous attempts in note section): 2 Fluid Appearance: Kristina Fluid Volume: >1000ml Type of Paracentesis: Diagnostic paracentesis and Therapeutic paracentesis Dressing: Tegaderm applied Procedure Tolerated: No Complications Procedure Outcome: Successful Medical Decision Making 59-year-old male with a history of end-stage renal disease from prior alcohol use who resides at the [facility] who comes in with several weeks of intermittent nausea vomiting abdominal distention. He has not had any fevers, he denies any abdominal pain. He is oriented x 4 and arrival and in no distress. He has no tenderness of his abdomen but it is distended on bedside ultrasound does have significant amount of ascites. Says he has had a dry cough as well. I suspect that his symptoms are primarily due to his amount of ascites, given his lack of fevers and pain I doubt SBP but will send peritoneal fluid to evaluate for this and plan for paracentesis. Will also check CBC, CMP and chest x-ray. Labs do not show any emergent changes from baseline. Peritoneal fluid is not consistent with SBP. I drained 4 L of ascites see procedure note. He is stable feels significant better. Given reassuring workup I feel he stable for discharge he can follow-up with his PCP and GI, return precautions given Differential Diagnosis Differential Diagnosis: Ascites, pneumonia Quality:SDOH Health Related Social Needs: Health related social needs housing instability, house d, with risk of homelessness (Z59.811), food insecurity (Z59.41), problems with daily activities (Z73.9), feeling lonely/isolated (Z60.8) PFSH All Active Problems (Updated 03/03/25 @ 21:03 by Nas Pham MD) Nausea & vomiting (Acute) Ascites (Acute) Advance care planning (Acute) Lives in prison (Acute) Deficit in activities of daily living (ADL) (Acute) End stage liver disease (Acute) Fall (Acute) Hepatic encephalopathy (Acute) AMS (altered mental status) (Acute) Medical History (Updated 03/03/25 @ 21:03 by Nas Pham MD) Housing instability Alcoholism Alcoholic liver failure HTN (hypertension) Asthma Surgical History H/O shoulder surgery Social History Smoking/Tobacco Use Status: Never Smoking risk assessment performed?: Yes Alcohol Intake: former Drug use: Never Substance use type: does not use Housing: apartment Do you feel safe at home: Yes Do you feel safe in your relationship?: Yes
[2025-03-03 19:25] LABS: Abs Immature Grans 0.03 10^3/uL (0.0-0.06); Absolute Basophil Count 0.05 10^3/uL (0.0-0.2); Absolute Eosinophil Count 1.23 10^3/uL (0.0-0.7); Absolute Lymphocyte Count 0.82 10^3/uL (1.2-3.4); Absolute Monocyte Count 0.91 10^3/uL (0.1-0.8); Absolute Neutrophil Count 5.97 10^3/uL (1.2-6.7); Basophils % 0.6 %; Eosinophils % 13.7 %; HCT 24.3 % (40.0-50.0); HGB 8.4 g/dL (13.5-17.5); Immature Grans % 0.3 %; Lymphocytes % 9.1 %; MCH 33.5 pg (27.0-33.0); MCHC 34.6 % (32.0-36.0); MCV 97 fL (80-95); MPV 9.9 fL (8.0-11.0); Monocytes % 10.1 %; Neutrophils % 66.2 %; RBC 2.51 10^6/uL (4.36-5.78); RDW 16.2 % (11.8-14.1); RDW-SD 57.3 fL; WBC 9.01 10^3/uL (4.4-10.8)
[2025-03-03 19:38] LABS: INR 1.7 (0.9-1.1); PTT Activated 26.6 sec (20.6-30.2); Prothrombin Time 16.4 sec (9.1-11.1)
[2025-03-03 19:39] LABS: ALT 108 U/L (16-63); AST 87 U/L (15-37); Albumin 2.4 g/dL (3.4-5.0); Alkaline Phosphatase 127 U/L (46-116); Anion Gap 6.6 mmol/L (3-11); BUN 10 mg/dL (7-18); Bilirubin, Direct 4.4 mg/dL (0.0-0.2); Bilirubin, Total 6.7 mg/dL (0.2-1.0); CO2 24.4 mmol/L (21.0-32.0); CREATININE 1.1 mg/dL (0.70-1.30); Calcium 9.5 mg/dL (8.5-10.1); Chloride 100 mmol/L (98-107); Estimated GFR 77.81 (mL/min/1.73m2); Glucose 129 mg/dL (74-106); Magnesium 1.5 mg/dL (1.8-2.4); Potassium 3.8 mmol/L (3.5-5.1); Sodium 131 mmol/L (136-145); Total Protein 5.2 g/dL (6.4-8.2)
[2025-03-03 19:41] LABS: Ammonia 22 umol/L (11-32)
[2025-03-03 19:42] LABS: Platelet Count 91 10^3/uL (130-400)
[2025-03-03 19:44] LABS: Anisocytosis 1+; Diff Comment RBC Morph Reviewed
--- NOTE | 2025-03-03 20:18 | DI.RAD_ITS ---
Exam(s) XR CHEST 2V PA LATERAL EXAM: XR CHEST 2V PA LATERAL CLINICAL HISTORY: cough. TECHNIQUE: 2D digital imaging was performed. COMPARISON: CR XR CHEST 2V PA LATERAL from 12/29/2024 FINDINGS: 2 views: Heart size is normal. The mediastinum is not widened. Lungs are clear. No infiltrates nor pleural effusions. IMPRESSION: No acute pulmonary findings. DATA REPOSITORY: RADIATION DOSE DELIVERED:
[2025-03-03 20:25] LABS: Source Peritoneal
[2025-03-03 20:26] LABS: Clarity Clear
[2025-03-03 20:27] LABS: Mononuclear Cells 89 %; Nucleated Cells 123 uL (0); Polynuclear Cells 11 %
--- NOTE | 2025-03-06 11:52 | DI.VRAD_ITS ---
PROCEDURE INFORMATION: Exam: XR Chest Exam date and time: 03/03/2025 8:14 PM Age: 59 years old Clinical indication: Cough TECHNIQUE: Imaging protocol: Radiologic exam of the chest. Views: 2 views. COMPARISON: CR XR CHEST 2V PA LATERAL 12/29/2024 5:44 PM FINDINGS: Lungs: No acute infiltrate identified. There is no consolidation or atelectasis. Pleural spaces: No effusions or pneumothoraces. Heart/Mediastinum: The heart is not enlarged. The superior mediastinum is unremarkable. Bones/joints: No acute bony change of the thoracic spine or ribs. There are chronic [id number] degenerative changes of the left shoulder joint. IMPRESSION: 1. No acute cardiopulmonary disease identified. Dictated and Authenticated by: Amol Aguilar MD. Orderin Ankit Lovell MD
--- NOTE | 2025-03-07 11:35 | NUR.NOTE ---
Access chart to get the antibiotics for fluid culture on discharge. Nursing Note:
== END 2025-03-03 22:28 | disposition skilled nursing facility (03) ==
PROVIDERS: Emergency Provider Emergency Medicine; PCP Family Medicine
DX: K72.10 Chronic hepatic failure without coma (principal); R18.8 Other ascites; R11.2 Nausea with vomiting, unspecified
CPT/HCPCS: 36415; 49082; 80053; 99284; 71046; 82140; 82248; 83735; 85025; 85610; 85730; 87070; 87205; 89051

== ENCOUNTER 2025-03-06 18:05 | Outpatient (REF) | payer MEDICAID, SELFPAY ==
[2025-03-06 18:10] LABS: Abs Immature Grans 0.05 10^3/uL (0.0-0.06); Absolute Basophil Count 0.06 10^3/uL (0.0-0.2); Absolute Eosinophil Count 2.26 10^3/uL (0.0-0.7); Absolute Lymphocyte Count 1.18 10^3/uL (1.2-3.4); Absolute Monocyte Count 1.13 10^3/uL (0.1-0.8); Absolute Neutrophil Count 5.89 10^3/uL (1.2-6.7); Basophils % 0.6 %; Eosinophils % 21.4 %; HCT 23.8 % (40.0-50.0); HGB 8.3 g/dL (13.5-17.5); Immature Grans % 0.5 %; Lymphocytes % 11.2 %; MCH 33.7 pg (27.0-33.0); MCHC 34.9 % (32.0-36.0); MCV 97 fL (80-95); MPV 11.1 fL (8.0-11.0); Monocytes % 10.7 %; Neutrophils % 55.6 %; RBC 2.46 10^6/uL (4.36-5.78); RDW 16.5 % (11.8-14.1); RDW-SD 58.6 fL; WBC 10.57 10^3/uL (4.4-10.8)
[2025-03-06 18:27] LABS: Diff Comment Diff Reviewed
[2025-03-06 18:28] LABS: Hypochromasia 1+; Platelet Count 85 10^3/uL (130-400)
[2025-03-06 18:33] LABS: ALT 83 U/L (16-63); AST 65 U/L (15-37); Albumin 2.3 g/dL (3.4-5.0); Alkaline Phosphatase 120 U/L (46-116); Anion Gap 8.8 mmol/L (3-11); BUN 9 mg/dL (7-18); Bilirubin, Total 5.4 mg/dL (0.2-1.0); CO2 21.2 mmol/L (21.0-32.0); CREATININE 1.1 mg/dL (0.70-1.30); Calcium 8.9 mg/dL (8.5-10.1); Chloride 101 mmol/L (98-107); Estimated GFR 77.81 (mL/min/1.73m2); Glucose 153 mg/dL (74-106); Magnesium 1.6 mg/dL (1.8-2.4); Potassium 4.2 mmol/L (3.5-5.1); Sodium 131 mmol/L (136-145); Total Protein 4.7 g/dL (6.4-8.2)
== END 2025-03-06 18:06 | disposition home or self-care (01) ==
LOC: LBN 18:05
PROVIDERS: PCP Family Medicine; Visit Provider Nurse Practitioner Gerontology
DX: E87.8 Other disorders of electrolyte and fluid balance, not elsewhere classified (principal); D63.1 Anemia in chronic kidney disease; E83.42 Hypomagnesemia
CPT/HCPCS: 80053; 83735; 85025

== ENCOUNTER 2025-03-13 19:29 | Outpatient (REF) | payer MEDICAID, SELFPAY ==
[2025-03-13 19:52] LABS: HCT 22.8 % (40.0-50.0); HGB 7.8 g/dL (13.5-17.5); MCH 33.6 pg (27.0-33.0); MCHC 34.2 % (32.0-36.0); MCV 98 fL (80-95); MPV 10.7 fL (8.0-11.0); RBC 2.32 10^6/uL (4.36-5.78); RDW 16.2 % (11.8-14.1); RDW-SD 58.1 fL; WBC 14.58 10^3/uL (4.4-10.8)
[2025-03-13 20:03] LABS: Anion Gap 6.3 mmol/L (3-11); BUN 8 mg/dL (7-18); CO2 20.7 mmol/L (21.0-32.0); CREATININE 1.2 mg/dL (0.70-1.30); Calcium 9.6 mg/dL (8.5-10.1); Chloride 100 mmol/L (98-107); Glucose 151 mg/dL (74-106); Potassium 4.2 mmol/L (3.5-5.1); Sodium 127 mmol/L (136-145)
[2025-03-13 20:17] LABS: Absolute Lymphocyte Count 0.87 10^3/uL (1.2-3.4); Absolute Neutrophil Count 7.29 10^3/uL (1.2-6.7); Diff Comment Manual Differential
[2025-03-13 20:18] LABS: Absolute Eosinophil Count 5.69 10^3/uL (0.0-0.7); Absolute Monocyte Count 0.73 10^3/uL (0.1-0.8); Platelet Count 72 10^3/uL (130-400); RBC Morphology Normal
== END 2025-03-13 19:30 | disposition home or self-care (01) ==
LOC: LBN 19:29
PROVIDERS: PCP Family Medicine; Visit Provider Nurse Practitioner Gerontology
DX: E87.8 Other disorders of electrolyte and fluid balance, not elsewhere classified (principal); D63.1 Anemia in chronic kidney disease
CPT/HCPCS: 80048; 85025

== ENCOUNTER 2025-03-20 18:26 | Outpatient (REF) | payer MEDICAID, SELFPAY ==
[2025-03-20 19:41] LABS: Abs Immature Grans 0.05 10^3/uL (0.0-0.06); Absolute Basophil Count 0.04 10^3/uL (0.0-0.2); Absolute Eosinophil Count 3.02 10^3/uL (0.0-0.7); Absolute Neutrophil Count 7.84 10^3/uL (1.2-6.7); Basophils % 0.3 %; Eosinophils % 21.7 %; HCT 24.7 % (40.0-50.0); HGB 8.4 g/dL (13.5-17.5); Immature Grans % 0.4 %; Lymphocytes % 12.3 %; MCH 33.3 pg (27.0-33.0); MCV 98 fL (80-95); MPV 10.8 fL (8.0-11.0); Neutrophils % 56.3 %; Platelet Count 100 10^3/uL (130-400); RBC 2.52 10^6/uL (4.36-5.78); RDW 16.9 % (11.8-14.1); RDW-SD 60.6 fL; WBC 13.93 10^3/uL (4.4-10.8)
[2025-03-20 19:48] LABS: Absolute Lymphocyte Count 1.71 10^3/uL (1.2-3.4); Absolute Monocyte Count 1.25 10^3/uL (0.1-0.8)
[2025-03-20 19:50] LABS: ESR < 1 mm/hr (0-20)
[2025-03-20 19:53] LABS: ALT 50 U/L (16-63); AST 42 U/L (15-37); Albumin 2.6 g/dL (3.4-5.0); Alkaline Phosphatase 107 U/L (46-116); Anion Gap 12.2 mmol/L (3-11); BUN 10 mg/dL (7-18); Bilirubin, Direct 2.6 mg/dL (0.0-0.2); Bilirubin, Total 3.9 mg/dL (0.2-1.0); C-Reactive Protein 0.82 mg/dL (<or=0.5); CO2 18.8 mmol/L (21.0-32.0); CREATININE 1.1 mg/dL (0.70-1.30); Calcium 9.6 mg/dL (8.5-10.1); Chloride 102 mmol/L (98-107); Estimated GFR 77.81 (mL/min/1.73m2); Glucose 122 mg/dL (74-106); Potassium 4.1 mmol/L (3.5-5.1); Sodium 133 mmol/L (136-145); Total Protein 5.4 g/dL (6.4-8.2)
[2025-03-20 20:01] LABS: Diff Comment Diff Reviewed
[2025-03-20 20:04] LABS: Hypochromasia 1+
== END 2025-03-20 18:27 | disposition home or self-care (01) ==
LOC: LBN 18:26
PROVIDERS: PCP Family Medicine; Visit Provider Nurse Practitioner Gerontology
DX: E87.8 Other disorders of electrolyte and fluid balance, not elsewhere classified (principal); D63.1 Anemia in chronic kidney disease; E80.6 Other disorders of bilirubin metabolism; K76.82 Hepatic encephalopathy; K70.31 Alcoholic cirrhosis of liver with ascites
CPT/HCPCS: 80053; 85652; 82248; 85025; 86140

== ENCOUNTER 2025-03-28 14:21 | Outpatient (REF) | payer MEDICAID, SELFPAY ==
[2025-03-28 12:12] LABS: Abs Immature Grans 0.02 10^3/uL (0.0-0.06); Absolute Basophil Count 0.03 10^3/uL (0.0-0.2); Absolute Eosinophil Count 0.85 10^3/uL (0.0-0.7); Absolute Lymphocyte Count 0.99 10^3/uL (1.2-3.4); Absolute Monocyte Count 0.66 10^3/uL (0.1-0.8); Absolute Neutrophil Count 3.88 10^3/uL (1.2-6.7); Basophils % 0.5 %; Eosinophils % 13.2 %; HCT 23.2 % (40.0-50.0); Immature Grans % 0.3 %; Lymphocytes % 15.4 %; MCH 34.6 pg (27.0-33.0); MCHC 34.5 % (32.0-36.0); MCV 100 fL (80-95); MPV 10.4 fL (8.0-11.0); Monocytes % 10.3 %; Neutrophils % 60.3 %; RBC 2.31 10^6/uL (4.36-5.78); RDW 17.8 % (11.8-14.1); RDW-SD 65.9 fL; WBC 6.43 10^3/uL (4.4-10.8)
[2025-03-28 12:16] LABS: ALT 39 U/L (16-63); AST 33 U/L (15-37); Albumin 2.4 g/dL (3.4-5.0); Alkaline Phosphatase 92 U/L (46-116); Anion Gap 7.4 mmol/L (3-11); BUN 7 mg/dL (7-18); Bilirubin, Total 3.3 mg/dL (0.2-1.0); CO2 20.6 mmol/L (21.0-32.0); CREATININE 0.9 mg/dL (0.70-1.30); Calcium 8.8 mg/dL (8.5-10.1); Chloride 102 mmol/L (98-107); Glucose 151 mg/dL (74-106); Magnesium 1.9 mg/dL (1.8-2.4); Potassium 4.3 mmol/L (3.5-5.1); Sodium 130 mmol/L (136-145); Total Protein 4.8 g/dL (6.4-8.2)
[2025-03-28 12:44] LABS: Diff Comment PLT Morph Reviewed; Platelet Count 58 10^3/uL (130-400); RBC Morphology Normal
== END 2025-03-28 14:22 | disposition home or self-care (01) ==
LOC: LBN 14:21
PROVIDERS: PCP Family Medicine; Visit Provider Nurse Practitioner Gerontology
DX: E83.42 Hypomagnesemia (principal); D63.1 Anemia in chronic kidney disease
CPT/HCPCS: 80053; 83735; 85025

== ENCOUNTER 2025-04-05 11:31 | Emergency (ER) | payer MEDICAID, SELFPAY ==
[2025-04-05] VITALS (7 sets, daily range): BP systolic 108–129; BP diastolic 64–77; PULSE 83–88; RESP 16; TEMP 36.7; O2SAT 99–100
--- NOTE | 2025-04-05 11:59 | W.ED.GENAD ---
Discharge Plan Disposition Patient Disposition: [facility] Facility(SNF) Condition: Good Discharge Details Clinical Impression: End stage liver disease, Ascites Primary Care Provider: Noman Guerin ED Provider: Tamie Leonardo Home Meds and New Rx's Prescriptions: Continued lactulose 10 gram/15 mL solution 20 g PO QID Rx Instructions: 30 ml three times a day furosemide 20 mg tablet 60 mg PO QAM trazodone 50 mg tablet 50 mg PO HS pantoprazole 40 mg tablet,delayed release (DR/EC) 40 mg PO DAILY Patient Comments: TAKE ONE TABLET BY MOUTH EVERY DAY ergocalciferol (vitamin D2) 1,250 mcg (50,000 unit) capsule 1,250 mcg PO .weekly Patient Comments: TAKE 1 CAPSULE BY MOUTH ONCE A WEEK FOR 8 DOSES ciprofloxacin HCl 500 mg tablet 500 mg PO DAILY Patient Comments: TAKE ONE TABLET BY MOUTH EVERY MORNING loratadine 10 mg tablet 10 mg PO DAILY PRN (Reason: allergic symptoms) Patient Comments: TAKE ONE TABLET BY MOUTH EVERY DAY Aquaphor Healing 41 % ointment 1 applic topical BID PRN fluticasone furoate-vilanterol [Breo Ellipta] 100-25 mcg/dose blister with device 1 inh inhalation DAILY potassium chloride 20 mEq tablet extended release 20 meq PO BID triamcinolone acetonide 0.1 % ointment 1 applic TOPICAL BID Patient Comments: APPLY TOPICALLY TWO TIMES A DAY potassium chloride [Klor-Con M20] 20 mEq Tablet,Er Particles/Crystals 20 meq PO DAILY Qty: 30 0RF magnesium chloride [Mag 64] 64 mg Tablet,Delayed Release (Dr/Ec) 64 mg PO DAILY Qty: 30 0RF Xifaxan 550 mg Tablet 550 mg PO BID Qty: 60 0RF thiamine HCl (vitamin B1) 100 mg capsule 100 mg PO DAILY Qty: 30 0RF spironolactone 50 mg tablet 150 mg PO DAILY albuterol sulfate [Ventolin HFA] 90 mcg/actuation Hfa Aerosol Inhaler 1 puff inhalation Q6H PRN ondansetron 4 mg tablet,disintegrating 4 mg PO Q8H PRN (Reason: nausea and vomiting) Qty: 30 0RF Discharge Instructions Instructions: Fluid in the belly (ascites) Additional Instructions: While you have had some increased fluid in your abdomen and increased weight, you are otherwise stable with no increased shortness of breath or difficulty breathing. Do not see emergent need for fluid removal. Instead, general surgeon recommends a one-time dose of increased Lasix which you received here in the emergency department and then follow-up with them in the next week for the procedure to be completed in the clinic as an outpatient. Please call number listed below to schedule appointment. If you develop any abdominal pain, fever/chills, shortness of breath, difficulty breathing or other new/worsening symptoms please seek care urgently once again. Referrals: Marlyn Sage MD [ [facility] STAFF PHYSICIAN, Surgery] Discharge Data Discharge Date/Time-TO BE ENTERED AT DEPARTURE: 04/05/25 17:36 HPI General Date/Time Provider Initiated Documentation: 04/05/25 11:59. Limitations to Documentation: no limitations. Information obtained by: patient, RN notes reviewed and old records reviewed. History of Present Illness 59 year old M presents to the emergency department with the chief complaint of 12lb weight gain, and is localized to the abdomen (has had recurrence of ascites from chronic liver failure, no acute change). Patient started experiencing this week(s) (has been increasing over time) Patient notes denies confusion, chest pain, cough, fever/chills, loss of appetite, nausea/vomiting, rash and shortness of breath. Patient did receive the following treatments prior to arrival, none Related Data Home Medications ?Medication ?Instructions ?Recorded ?Confirmed albuterol sulfate 90 mcg/actuation 1 puff inhalation Q6H PRN 12/28/18 04/05/25 aerosol inhaler (Ventolin HFA) pantoprazole 40 mg tablet,delayed 40 mg PO DAILY 01/07/25 04/05/25 release trazodone 50 mg tablet 50 mg PO HS 01/07/25 04/05/25 ciprofloxacin HCl 500 mg tablet 500 mg PO DAILY 01/08/25 04/05/25 ergocalciferol (vitamin D2) 1,250 1,250 mcg PO .weekly 01/08/25 04/05/25 mcg (50,000 unit) capsule fluticasone furoate 100 1 inh inhalation DAILY 01/08/25 04/05/25 mcg-vilanterol 25 mcg/dose inhalation powder (Breo Ellipta) loratadine 10 mg tablet 10 mg PO DAILY PRN allergic 01/08/25 04/05/25 symptoms potassium chloride 20 mEq 20 meq PO BID 01/08/25 04/05/25 tablet,extended release triamcinolone acetonide 0.1 % 1 applic topical BID 01/08/25 04/05/25 topical ointment white petrolatum 41 % topical 1 applic topical BID PRN 01/08/25 04/05/25 ointment (Aquaphor Healing) magnesium chloride 64 mg 64 mg PO DAILY #30 tabs 01/11/25 04/05/25 (magnesium chloride) tablet,delayed release (Mag 64) potassium chloride 20 mEq 20 meq PO DAILY #30 tabs 01/11/25 04/05/25 tablet,extended release(part/cryst) (Klor-Con M) rifaximin 550 mg tablet (Xifaxan) 550 mg PO BID #60 tabs 01/11/25 04/05/25 thiamine HCl (vitamin B1) 100 mg 100 mg PO DAILY #30 caps 01/11/25 04/05/25 capsule furosemide 20 mg tablet 60 mg PO QAM 02/15/25 04/05/25 lactulose 10 gram/15 mL oral 20 g PO QID 02/15/25 04/05/25 solution spironolactone 50 mg tablet 150 mg PO DAILY 02/15/25 04/05/25 ondansetron 4 mg disintegrating 4 mg PO Q8H PRN nausea and 03/03/25 04/05/25 tablet vomiting #30 tabs Previous Rx's ?Medication ?Instructions ?Recorded magnesium chloride 64 mg 64 mg PO DAILY #30 tabs 01/11/25 (magnesium chloride) tablet,delayed release (Mag 64) potassium chloride 20 mEq 20 meq PO DAILY #30 tabs 01/11/25 tablet,extended release(part/cryst) (Klor-Con M) rifaximin 550 mg tablet (Xifaxan) 550 mg PO BID #60 tabs 01/11/25 thiamine HCl (vitamin B1) 100 mg 100 mg PO DAILY #30 caps 01/11/25 capsule ondansetron 4 mg disintegrating 4 mg PO Q8H PRN nausea and 03/03/25 tablet vomiting #30 tabs Allergies Allergy/AdvReac Type Severity Reaction Status Date / Time ceftriaxone Allergy Intermediate Skin Rash Verified 04/05/25 11:37 lisinopril Allergy Unknown unknown Unverified 04/05/25 11:37 General Stated Complaint: GenMedical ADRIÁN: 3 Review of Systems Constitutional Constitutional: Reports as per HPI, Denies chills, Reports fatigue (has been ongoing, no acute change), Denies fever(s), Denies headache(s) and Reports lethargy ENT Ears, Nose, Mouth, and Throat: Denies headache(s) and Denies odynophagia Cardiovascular Cardiovascular: Reports as per HPI, Denies chest pain and Denies dyspnea Respiratory Respiratory: Reports as per HPI, Denies chest congestion, Denies cough, Denies hemoptysis, Denies pain on inspiration, Denies pain with cough and Denies dyspnea Gastrointestinal Gastrointestinal: Reports as per HPI, Denies abdominal pain, Denies melena, Denies hematochezia, Denies change in bowel habits (has a few BM per day, associates with lactulose), Denies change in stool character, Denies nausea, Denies odynophagia and Denies vomiting Genitourinary Genitourinary: Denies system reviewed and no additional complaints, except as documented (patient denies any change in urinary habits) Musculoskeletal Musculoskeletal: Reports as per HPI and Denies back pain Integumentary/Breasts Skin/Breast: Reports as per HPI and Denies rash Neurologic Neurologic: Reports as per HPI and Denies headache(s) Endocrine Endocrine: Reports fatigue (has been ongoing, no acute change) Exam Const General: cooperative, comfortable, no acute distress, well developed and ill appearing chronically Nutritional Appearance: average body habitus and well nourished Orientation: alert and awake Eyes General: appearance normal, both eyes and all related structures (no jaundice) Resp Effort & Inspection: normal respiratory effort, able to speak in complete sentences and no respiratory distress Auscultation: clear to auscultation bilaterally, no rales, no rhonchi and no wheezes Cardio Rate: regular rate Rhythm: regular rhythm Heart Sounds: S1 normal and S2 normal GI Inspection: distended Palpation: soft, no guarding, no masses, not rigid, nontender and ascites (+fluid wave) Percussion: fluid wave Back/Spine/Pelvis Back: no CVA tenderness Skin General skin exam: no rashes or lesions noted Trauma: no lacerations or abrasions Neuro General: patient alert and patient awake Cognition: normal cognition Speech: speech normal Course Vital Signs Vital signs: Vital Signs Temperature 36.7 C 04/05/25 11:35 Pulse 83 07/02/25 11:35 Respiratory Rate 16 04/05/25 11:35 Blood Pressure 124/77 04/05/25 11:35 Pulse Oximetry 100 04/05/25 11:35 Temperature 36.7 C 04/05/25 11:35 Temperature Source Oral 04/05/25 11:35 Pulse 83 04/05/25 11:35 Respiratory Rate 16 04/05/25 11:35 Blood Pressure 124/77 04/05/25 11:35 Pulse Oximetry 100 04/05/25 11:35 Oxygen Delivery Method Room Air 04/05/25 11:35 Oxygen Flow Rate 0 04/05/25 11:35 Pain Level 0 04/05/25 11:35 Medical Decision Making Patient is a pleasant 56-year-old gentleman with past medical history significant for liver failure, hypertension, asthma, presenting with chief complaint of weight gain. Patient currently rate resides at the [facility]. He is not currently a transplant candidate for his liver failure, per most recent palliative care note, mortality rate 77 in the next 3 months. Patient has been on lactulose, reports that he feels like he is clearheaded, has not had any confusion. He has been fatigued states that not more so than his typical. He reports that he went out a few days ago and after walking around for a while this can lead to continued fatigue for a few days subsequently. He denies any abdominal pain. No shortness of breath. No orthopnea. Denies any fevers or chills. No change in appetite. No change in bowel or bladder habits. Patient is unclear why he was required to come to the emergency department today. Per parents, patient needs to be evaluated as he had a 12 lb weight gain. On exam, patient appears chronically ill. No jaundice is present. Lungs are clear, no respiratory distress, no orthopnea. Abdominal exam concerning for fluid wave, distension. Non-tender to palpation. No lower extremity edema. 2+ distal pulses. Cognition is normal. While patient does appear to be chornically ill both on chart review as well as physical exam, there is no indication of acute change in his status. While he has had weight gain, he reports this has been building. Ascites is present but he has no respiratory involvement, no pain. No indication of respiratoy compromise. Non-tender, afebrile, no sudden change in ascites volume, no indication of SBP at this time. Tolerating lactulose, no evidence of hepatic encephalopathy. Discussed concerning weight gain with patient. He reports he has required paracentesis in the past, was last tapped a few month ago. Patient reports 4L removed at that time. However, with patient feeling well, no evidence of SBP or respiratory compromise, do not see need for emergent paracentesis. He would prefer to hold off. As he resides at [facility], was sent by staff. He is concerned abou tthe amount processed food he is being offered, is concerned this may play into his ascites reaccumulating. He would prefer to hold off on tap, establish locally with care team. Had been previously tapped at [facility] during [place] hospitalization. Consulted with general surgery, she advised no emergent tap needed. She advised to increase Lasix 40mg today x one. URgent referral for f/u in clinic with plan for outpatient paracentesis. Discussed with patient. He is happy to establish care locally. Will arrange for transport back to the [facility]. All of the patients questions and concerns were addressed, he received his extra dosing of Lasix. Return precautions discussed. He is in agreement with this plan. Quality:SDOH Health Related Social Needs: Health related social needs risk of homeless food insecurity daily activities lonely/isolated PFSH All Active Problems (Updated 04/05/25 @ 14:03 by Radha Desir NP) Itching (Acute) Nausea (Acute) Ascites (Acute) Advance care planning (Acute) Lives in half-way (Acute) Deficit in activities of daily living (ADL) (Acute) End stage liver disease (Acute) Fall (Acute) Hepatic encephalopathy (Acute) AMS (altered mental status) (Acute) Medical History (Updated 04/05/25 @ 14:03 by Radha Desir NP) Housing instability Alcoholism Alcoholic liver failure HTN (hypertension) Asthma Surgical History H/O shoulder surgery Social History Smoking/Tobacco Use Status: Never Smoking risk assessment performed?: Yes Alcohol Intake: former Drug use: Never Substance use type: does not use Housing: apartment Do you feel safe at home: Yes Do you feel safe in your relationship?: Yes
[2025-04-05] MEDS: Furosemide 40 MG TAB PO (13:27)
== END 2025-04-05 17:36 | disposition skilled nursing facility (03) ==
LOC: ER 13:20
PROVIDERS: Emergency Provider Physician Assistant; PCP Family Medicine
DX: K72.10 Chronic hepatic failure without coma (principal); R18.8 Other ascites; I10 Essential (primary) hypertension; J45.909 Unspecified asthma, uncomplicated
CPT/HCPCS: 99283

== ENCOUNTER 2025-04-10 18:50 | Outpatient (REF) | payer MEDICAID, SELFPAY ==
[2025-04-10 18:49] LABS: Abs Immature Grans 0.02 10^3/uL (0.0-0.06); HCT 23.1 % (40.0-50.0); HGB 7.9 g/dL (13.5-17.5); Immature Grans % 0.3 %; MCH 34.3 pg (27.0-33.0); MCHC 34.2 % (32.0-36.0); MCV 100 fL (80-95); MPV 10.2 fL (8.0-11.0); RBC 2.30 10^6/uL (4.36-5.78); RDW 15.4 % (11.8-14.1); RDW-SD 57.1 fL; WBC 6.63 10^3/uL (4.4-10.8)
[2025-04-10 18:59] LABS: Anion Gap 8.3 mmol/L (3-11); BUN 10 mg/dL (7-18); CO2 19.7 mmol/L (21.0-32.0); Calcium 8.5 mg/dL (8.5-10.1); Chloride 101 mmol/L (98-107); Estimated GFR 99.00 (mL/min/1.73m2); Glucose 130 mg/dL (74-106); Potassium 4.3 mmol/L (3.5-5.1); Sodium 129 mmol/L (136-145)
[2025-04-10 19:19] LABS: Platelet Count 66 10^3/uL (130-400)
== END 2025-04-10 18:51 | disposition home or self-care (01) ==
LOC: LBN 18:50
PROVIDERS: PCP Family Medicine; Visit Provider Nurse Practitioner Gerontology
DX: E87.8 Other disorders of electrolyte and fluid balance, not elsewhere classified (principal); D63.1 Anemia in chronic kidney disease
CPT/HCPCS: 80048; 85025

== ENCOUNTER 2025-04-17 19:31 | Outpatient (REF) | payer MEDICAID, SELFPAY ==
[2025-04-17 20:04] LABS: Abs Immature Grans 0.02 10^3/uL (0.0-0.06); HCT 26.2 % (40.0-50.0); HGB 8.7 g/dL (13.5-17.5); Immature Grans % 0.3 %; MCH 34.1 pg (27.0-33.0); MCHC 33.2 % (32.0-36.0); MCV 103 fL (80-95); MPV 10.6 fL (8.0-11.0); RBC 2.55 10^6/uL (4.36-5.78); RDW 15.2 % (11.8-14.1); RDW-SD 57.0 fL; WBC 6.28 10^3/uL (4.4-10.8)
[2025-04-17 20:31] LABS: ALT 28 U/L (16-63); AST 31 U/L (15-37); Albumin 2.5 g/dL (3.4-5.0); Alkaline Phosphatase 111 U/L (46-116); Anion Gap 6.7 mmol/L (3-11); BUN 8 mg/dL (7-18); Bilirubin, Total 3.5 mg/dL (0.2-1.0); CO2 24.3 mmol/L (21.0-32.0); Calcium 9.0 mg/dL (8.5-10.1); Chloride 102 mmol/L (98-107); Estimated GFR 87.24 (mL/min/1.73m2); Glucose 152 mg/dL (74-106); Potassium 3.8 mmol/L (3.5-5.1); Sodium 133 mmol/L (136-145); Total Protein 4.8 g/dL (6.4-8.2)
[2025-04-17 20:32] LABS: Platelet Count 79 10^3/uL (130-400); RBC Morphology Normal
== END 2025-04-17 19:32 | disposition home or self-care (01) ==
LOC: LBN 19:31
PROVIDERS: PCP Family Medicine; Visit Provider Nurse Practitioner Gerontology
DX: E87.6 Hypokalemia (principal); D63.1 Anemia in chronic kidney disease
CPT/HCPCS: 80053; 85025

== ENCOUNTER 2025-05-01 18:22 | Outpatient (REF) | payer MEDICAID, SELFPAY ==
[2025-05-01 18:34] LABS: Abs Immature Grans 0.03 10^3/uL (0.0-0.06); HCT 26.3 % (40.0-50.0); HGB 8.7 g/dL (13.5-17.5); Immature Grans % 0.4 %; MCH 32.7 pg (27.0-33.0); MCHC 33.1 % (32.0-36.0); MCV 99 fL (80-95); MPV 10.6 fL (8.0-11.0); RBC 2.66 10^6/uL (4.36-5.78); RDW 14.5 % (11.8-14.1); RDW-SD 53.1 fL; WBC 7.60 10^3/uL (4.4-10.8)
[2025-05-01 18:53] LABS: ALT 23 U/L (16-63); AST 29 U/L (15-37); Albumin 2.5 g/dL (3.4-5.0); Alkaline Phosphatase 108 U/L (46-116); Anion Gap 9.1 mmol/L (3-11); BUN 7 mg/dL (7-18); Bilirubin, Total 3.4 mg/dL (0.2-1.0); CO2 22.9 mmol/L (21.0-32.0); Calcium 9.1 mg/dL (8.5-10.1); Chloride 102 mmol/L (98-107); Estimated GFR 87.24 (mL/min/1.73m2); Glucose 154 mg/dL (74-106); Potassium 3.7 mmol/L (3.5-5.1); Sodium 134 mmol/L (136-145); Total Protein 4.9 g/dL (6.4-8.2)
[2025-05-01 19:07] LABS: RBC Morphology Normal
[2025-05-01 19:08] LABS: Platelet Count 75 10^3/uL (130-400)
== END 2025-05-01 18:23 | disposition home or self-care (01) ==
LOC: LBN 18:22
PROVIDERS: PCP Family Medicine; Visit Provider Nurse Practitioner Gerontology
DX: E87.8 Other disorders of electrolyte and fluid balance, not elsewhere classified (principal); D63.1 Anemia in chronic kidney disease
CPT/HCPCS: 80053; 85025

== ENCOUNTER 2025-05-29 20:45 | Outpatient (REF) | payer MEDICAID, SELFPAY ==
[2025-05-29 19:13] LABS: Abs Immature Grans 0.03 10^3/uL (0.0-0.06); HCT 25.1 % (40.0-50.0); HGB 8.6 g/dL (13.5-17.5); Immature Grans % 0.5 %; MCH 33.1 pg (27.0-33.0); MCHC 34.3 % (32.0-36.0); MCV 97 fL (80-95); MPV 10.5 fL (8.0-11.0); RBC 2.60 10^6/uL (4.36-5.78); RDW 16.1 % (11.8-14.1); RDW-SD 57.1 fL; WBC 6.01 10^3/uL (4.4-10.8)
[2025-05-29 19:27] LABS: Platelet Count 61 10^3/uL (130-400)
[2025-05-29 19:28] LABS: Anisocytosis 1+; Hypochromasia 1+
[2025-05-29 19:34] LABS: ALT 27 U/L (16-63); AST 27 U/L (15-37); Albumin 2.5 g/dL (3.4-5.0); Alkaline Phosphatase 96 U/L (46-116); Anion Gap 9.6 mmol/L (3-11); BUN 6 mg/dL (7-18); Bilirubin, Total 2.8 mg/dL (0.2-1.0); CO2 20.4 mmol/L (21.0-32.0); Calcium 8.8 mg/dL (8.5-10.1); Chloride 102 mmol/L (98-107); Estimated GFR 87.24 (mL/min/1.73m2); Glucose 139 mg/dL (74-106); Potassium 3.6 mmol/L (3.5-5.1); Sodium 132 mmol/L (136-145); Total Protein 4.7 g/dL (6.4-8.2)
== END 2025-05-29 20:46 | disposition home or self-care (01) ==
LOC: LBN 20:45
PROVIDERS: PCP Family Medicine; Visit Provider Nurse Practitioner Gerontology
DX: E87.8 Other disorders of electrolyte and fluid balance, not elsewhere classified (principal); D63.1 Anemia in chronic kidney disease
CPT/HCPCS: 80053; 85025

== ENCOUNTER 2025-06-12 18:59 | Outpatient (REF) | payer MEDICAID, SELFPAY ==
[2025-06-12 20:24] LABS: HCT 27.9 % (40.0-50.0); HGB 9.7 g/dL (13.5-17.5); MCH 34.0 pg (27.0-33.0); MCHC 34.8 % (32.0-36.0); MCV 98 fL (80-95); MPV 10.6 fL (8.0-11.0); RBC 2.85 10^6/uL (4.36-5.78); RDW 15.9 % (11.8-14.1); RDW-SD 57.3 fL; WBC 5.98 10^3/uL (4.4-10.8)
[2025-06-12 20:25] LABS: Abs Immature Grans 0.03 10^3/uL (0.0-0.06); Immature Grans % 0.5 %
[2025-06-12 20:37] LABS: ALT 25 U/L (16-63); AST 26 U/L (15-37); Albumin 2.6 g/dL (3.4-5.0); Alkaline Phosphatase 97 U/L (46-116); Anion Gap 9.0 mmol/L (3-11); BUN 7 mg/dL (7-18); Bilirubin, Total 2.9 mg/dL (0.2-1.0); CO2 24.0 mmol/L (21.0-32.0); Calcium 8.8 mg/dL (8.5-10.1); Chloride 99 mmol/L (98-107); Estimated GFR 87.24 (mL/min/1.73m2); Glucose 163 mg/dL (74-106); Potassium 3.7 mmol/L (3.5-5.1); Sodium 132 mmol/L (136-145); Total Protein 5.2 g/dL (6.4-8.2)
[2025-06-12 20:45] LABS: Platelet Count 60 10^3/uL (130-400); RBC Morphology Normal
== END 2025-06-12 19:00 | disposition home or self-care (01) ==
LOC: LBN 18:59
PROVIDERS: PCP Family Medicine; Visit Provider Nurse Practitioner Gerontology
DX: E87.8 Other disorders of electrolyte and fluid balance, not elsewhere classified (principal); D63.1 Anemia in chronic kidney disease
CPT/HCPCS: 80053; 85025

== ENCOUNTER 2025-07-03 16:14 | Outpatient (REF) | payer MEDICAID, SELFPAY ==
[2025-07-03 16:13] LABS: Abs Immature Grans 0.02 10^3/uL (0.0-0.06); HCT 27.5 % (40.0-50.0); HGB 9.7 g/dL (13.5-17.5); Immature Grans % 0.3 %; MCH 33.6 pg (27.0-33.0); MCHC 35.3 % (32.0-36.0); MCV 95 fL (80-95); RBC 2.89 10^6/uL (4.36-5.78); RDW 15.2 % (11.8-14.1); RDW-SD 53.5 fL; WBC 6.04 10^3/uL (4.4-10.8)
[2025-07-03 16:28] LABS: MPV 11.2 fL (8.0-11.0); Platelet Count 55 10^3/uL (130-400); RBC Morphology Normal
[2025-07-03 16:39] LABS: Anion Gap 8.3 mmol/L (3-11); BUN 11 mg/dL (7-18); CO2 21.7 mmol/L (21.0-32.0); Calcium 9.3 mg/dL (8.5-10.1); Chloride 100 mmol/L (98-107); Estimated GFR 99.00 (mL/min/1.73m2); Glucose 126 mg/dL (74-106); Magnesium 1.9 mg/dL (1.8-2.4); Potassium 4.2 mmol/L (3.5-5.1); Sodium 130 mmol/L (136-145)
== END 2025-07-03 16:15 | disposition home or self-care (01) ==
LOC: LBN 16:14
PROVIDERS: PCP Family Medicine; Visit Provider Nurse Practitioner Gerontology
DX: E87.8 Other disorders of electrolyte and fluid balance, not elsewhere classified (principal); D63.1 Anemia in chronic kidney disease; E83.42 Hypomagnesemia
CPT/HCPCS: 80048; 83735; 85025

== ENCOUNTER 2025-07-25 18:08 | Outpatient (REF) | payer MEDICAID, SELFPAY ==
[2025-07-25 15:43] LABS: Abs Immature Grans 0.02 10^3/uL (0.0-0.06); HCT 27.5 % (40.0-50.0); HGB 9.4 g/dL (13.5-17.5); Immature Grans % 0.3 %; MCH 32.4 pg (27.0-33.0); MCHC 34.2 % (32.0-36.0); MCV 95 fL (80-95); MPV 10.4 fL (8.0-11.0); RBC 2.90 10^6/uL (4.36-5.78); RDW 15.3 % (11.8-14.1); RDW-SD 53.8 fL; WBC 6.20 10^3/uL (4.4-10.8)
[2025-07-25 15:56] LABS: Iron 128 ug/dL (65-175); Total Iron Binding Capacity 163 ug/dL (250-450); Transferrin Sat 79 % (20-55)
[2025-07-25 16:02] LABS: Platelet Count 52 10^3/uL (130-400); RBC Morphology Normal
[2025-07-25 16:57] LABS: ALT 30 U/L (16-63); AST 27 U/L (15-37); Albumin 2.7 g/dL (3.4-5.0); Alkaline Phosphatase 98 U/L (46-116); Anion Gap 10.4 mmol/L (3-11); BUN 7 mg/dL (7-18); Bilirubin, Total 3.1 mg/dL (0.2-1.0); CO2 20.6 mmol/L (21.0-32.0); Calcium 9.1 mg/dL (8.5-10.1); Chloride 98 mmol/L (98-107); Estimated GFR 86.70 (mL/min/1.73m2); Ferritin 509 ng/mL (26-388); Glucose 149 mg/dL (74-106); Potassium 3.8 mmol/L (3.5-5.1); Sodium 129 mmol/L (136-145); TSH (W/Ref FT4) 1.08 uIU/mL (0.36-3.74); Total Protein 5.1 g/dL (6.4-8.2)
[2025-07-25 17:29] LABS: Bilirubin, Direct 1.4 mg/dL (0.0-0.2)
== END 2025-07-25 18:09 | disposition home or self-care (01) ==
LOC: LBN 18:08
PROVIDERS: PCP Legal Medicine; Visit Provider Nurse Practitioner Gerontology
DX: E87.8 Other disorders of electrolyte and fluid balance, not elsewhere classified (principal); D63.1 Anemia in chronic kidney disease; E80.6 Other disorders of bilirubin metabolism; R53.82 Chronic fatigue, unspecified; E61.1 Iron deficiency; D50.9 Iron deficiency anemia, unspecified; R79.1 Abnormal coagulation profile
CPT/HCPCS: 80053; 82248; 82728; 83540; 83550; 84443; 85025; 85610

== ENCOUNTER 2025-08-02 18:36 | Outpatient (REF) | payer MEDICAID, SELFPAY ==
[2025-08-02 17:52] LABS: Abs Immature Grans 0.03 10^3/uL (0.0-0.06); HCT 26.8 % (40.0-50.0); HGB 9.4 g/dL (13.5-17.5); Immature Grans % 0.5 %; MCH 33.7 pg (27.0-33.0); MCHC 35.1 % (32.0-36.0); MCV 96 fL (80-95); MPV 10.4 fL (8.0-11.0); RBC 2.79 10^6/uL (4.36-5.78); RDW 15.9 % (11.8-14.1); RDW-SD 55.6 fL; WBC 6.23 10^3/uL (4.4-10.8)
[2025-08-02 18:27] LABS: Anion Gap 10.6 mmol/L (3-11); BUN 7 mg/dL (7-18); CO2 22.4 mmol/L (21.0-32.0); Calcium 8.3 mg/dL (8.5-10.1); Chloride 98 mmol/L (98-107); Estimated GFR 86.70 (mL/min/1.73m2); Glucose 191 mg/dL (74-106); Magnesium 1.5 mg/dL (1.8-2.4); Potassium 3.5 mmol/L (3.5-5.1); Sodium 131 mmol/L (136-145); Vitamin B12 1231 pg/mL (193-986); Vitamin D 25 Total 47 ng/mL (30-100)
[2025-08-02 18:40] LABS: Platelet Count 53 10^3/uL (130-400)
[2025-08-02 18:41] LABS: RBC Morphology Normal
== END 2025-08-02 18:37 | disposition home or self-care (01) ==
LOC: LBN 18:36
PROVIDERS: PCP Legal Medicine; Visit Provider Nurse Practitioner Gerontology
DX: E87.8 Other disorders of electrolyte and fluid balance, not elsewhere classified (principal); D63.1 Anemia in chronic kidney disease
CPT/HCPCS: 80048; 82306; 82607; 83735; 85025

== ENCOUNTER 2025-08-21 18:41 | Outpatient (REF) | payer MEDICAID, SELFPAY ==
[2025-08-21 16:33] LABS: Abs Immature Grans 0.02 10^3/uL (0.0-0.06); HCT 28.0 % (40.0-50.0); HGB 9.9 g/dL (13.5-17.5); Immature Grans % 0.4 %; MCH 33.4 pg (27.0-33.0); MCHC 35.4 % (32.0-36.0); MCV 95 fL (80-95); MPV 10.3 fL (8.0-11.0); RBC 2.96 10^6/uL (4.36-5.78); RDW 15.4 % (11.8-14.1); RDW-SD 53.1 fL; WBC 5.67 10^3/uL (4.4-10.8)
[2025-08-21 16:41] LABS: Anion Gap 10.4 mmol/L (3-11); BUN 9 mg/dL (9-23); CO2 21.6 mmol/L (20.0-31.0); Calcium 9.2 mg/dL (8.3-10.6); Chloride 102 mmol/L (98-107); Glucose 158 mg/dL (74-106); Potassium 4.0 mmol/L (3.5-5.1); Sodium 134 mmol/L (136-145)
[2025-08-21 16:43] LABS: TSH (W/Ref FT4) 0.88 uIU/mL (0.55-4.78)
[2025-08-21 16:56] LABS: Platelet Count 65 10^3/uL (130-400); RBC Morphology Normal
[2025-08-21 16:57] LABS: Bilirubin, Direct 1.5 mg/dL (<=0.3); Bilirubin, Total 3.20 mg/dL (0.2-1.2)
== END 2025-08-21 18:42 | disposition home or self-care (01) ==
LOC: LBN 18:41
PROVIDERS: PCP Legal Medicine; Visit Provider Nurse Practitioner Gerontology
DX: E87.8 Other disorders of electrolyte and fluid balance, not elsewhere classified (principal); D63.1 Anemia in chronic kidney disease; R17 Unspecified jaundice
CPT/HCPCS: 80048; 82247; 82248; 84443; 85025

== ENCOUNTER 2025-09-04 21:13 | Outpatient (REF) | payer MEDICAID, SELFPAY ==
[2025-09-04 18:41] LABS: Abs Immature Grans 0.04 10^3/uL (0.0-0.06); HCT 29.4 % (40.0-50.0); HGB 9.9 g/dL (13.5-17.5); Immature Grans % 0.5 %; MCH 33.1 pg (27.0-33.0); MCHC 33.7 % (32.0-36.0); MCV 98 fL (80-95); MPV 10.7 fL (8.0-11.0); RBC 2.99 10^6/uL (4.36-5.78); RDW 16.0 % (11.8-14.1); RDW-SD 58.0 fL; WBC 8.58 10^3/uL (4.4-10.8)
[2025-09-04 19:03] LABS: Anion Gap 10.1 mmol/L (3-11); BUN 9 mg/dL (9-23); CO2 18.9 mmol/L (20.0-31.0); Calcium 8.8 mg/dL (8.3-10.6); Chloride 105 mmol/L (98-107); Glucose 128 mg/dL (74-106); Potassium 3.8 mmol/L (3.5-5.1); Sodium 134 mmol/L (136-145)
[2025-09-04 19:50] LABS: Platelet Count 75 10^3/uL (130-400)
== END 2025-09-04 21:14 | disposition home or self-care (01) ==
LOC: LBN 21:13
PROVIDERS: PCP Legal Medicine; Visit Provider Nurse Practitioner Gerontology
DX: E87.8 Other disorders of electrolyte and fluid balance, not elsewhere classified (principal); D63.1 Anemia in chronic kidney disease
CPT/HCPCS: 80048; 85025